=== PATIENT | male | born 1950 | race Two or more races ===

== ENCOUNTER → 2020-06-02 09:54 | Outpatient (BNVA) | payer MEDICARE, MEDICAID, SELFPAY | PROVIDERS: PCP Emergency Medicine; Visit Provider Internal Medicine Cardiovascular Disease | DX: I10 Essential (primary) hypertension (principal); R60.0 Localized edema; Z79.899 Other long term (current) drug therapy | CPT/HCPCS: 93005; 99202 ==

== ENCOUNTER → 2020-07-12 12:51 | Outpatient (REF) | payer MEDICARE, MEDICAID, SELFPAY ==
--- NOTE | 2020-07-12 12:57 | CA_ITS ---
Transthoracic Echocardiogram Patient (Last, First, Middle): Serafin Steele, Gender: Male Date of : 1950 Age: 70 Procedure Date: 07/12/2020 Procedure Type: Transthoracic Echocardiogram Location: OP Height: 167.64 cm Weight: 77.11 kg BSA: 1.87 m2 Heart Rate: bpm BP: 118 / 60 mmHg Belt Brander: Referring MD: Rubio Del Rio MD Symptoms: I10 - Essential (primary) hypertension Study Quality: Good ECG Rhythm: Sinus Conclusions: - The left ventricular systolic function is normal. The visually estimated ejection fraction is between 60-65%. - No obvious valvular pathology seen on this study. - Mild pulmonary hypertension is present. Findings Left Ventricle Normal left ventricular cavity size. There is normal left ventricular wall thickness. The left ventricular systolic function is normal. The visually estimated ejection fraction is between 60-65%. There is no evidence of regional wall motion abnormalities. Diastolic function is normal for age. E/E prime ratio is <8, consistent with normal filling pressures. Right Ventricle Mildly increased right ventricular cavity size. There is normal right ventricular systolic function. Atria Both atria are normal in size. Aortic Valve There is a normal trileaflet aortic valve. There is no aortic valve stenosis. There is no aortic valve regurgitation. Mitral Valve The mitral valve appears normal. There is trace mitral valve regurgitation. There is no mitral valve stenosis. Pulmonic Valve The pulmonic valve was not well visualized. Tricuspid Valve Normal tricuspid valve structure. There is trace tricuspid valve regurgitation. Mild pulmonary hypertension is present. Great Vessels The aortic annulus, sinuses of valsalva, and asc aorta are normal in size. Venous The inferior vena cava is normal in size and collapses greater than 50% with inspiration. Pericardium/Pleural There is no evidence of pericardial effusion. Prior Study Comparison No prior study available for comparison. Recommendations, Care & Conclusions No obvious valvular pathology seen on this study. Measurements 2D Linear Measurements IVSd: 0.99 0.6-0.9/0.6-1.0 cm LVIDd: 3.59 3.9-5.3/4.2-5.9 cm LVIDs: 2.21 2.0-3.6 cm LVPWd: 0.96 0.7-1.1 cm Ao Root: 3.40 2.1-3.5 cm LA Diam: 3.10 2.7-3.8/3.0-4.0 cm LV Mass: 129.10 67-162/88-224 g LVOT Diam: 2.50 3.0+(-)1.3 cm Mitral Valve MV Pk E: 0.67 MV PK A: 1.05 MV Decel Time: 148.00 E/A: 0.60 E'Lateral: 13.70 E'Medial: 11.70 E/E' Med: 5.80 E/E' Lat: 4.90 PHT: 43.00 MVA PHT: 5.12 Decel Saunders: 4.56 Aortic Valve AoV Pk Enio: 1.75 AoV Mn Enio: 1.20 AoV VTI: 0.32 AoV Pk Grad: 12.00 Aov Mn Grad: 7.00 LIZETTE Cont.VTI: 4.59 LVOT LVOT Pk Enio: 1.56 LVOT Mn Enio: 0.92 LVOT VTI: 0.30 LVOT Pk Grad: 10.00 LVOT Mn Grad: 4.00 LVOT Diam: 2.50 LVOT Area: 4.91 Diastolic Function MV Pk E: 0.67 MV Pk A: 1.05 E/A: 0.60 E'Medial: 11.70 E/E' Med: 5.80 E' Laterial: 13.70 E/E' Lat: 4.90 Tricuspid Valve TR Pk Enio: 2.82 TR Pk Grad: 32.00 RA Press: 3.00 RVSP: 43.00 Great Vessels Aorta Ao Root-2D: 3.40 2.0-3.7 cm Ao Asc: 3.30 2.1-3.4 cm Pulmonary Valve PV Pk Enio: 1.31 Peak PV Grad: 7.00 Updated in Other Vendor System with Status of Final James Yusuf MD electronically signed on 07/13/2020 3:52:55 PM with status of Final
== END ==
LOC: HO.CARD 12:51
PROVIDERS: PCP Family Medicine; Visit Provider Internal Medicine Cardiovascular Disease
DX: I10 Essential (primary) hypertension (principal); R60.0 Localized edema
CPT/HCPCS: 93306

== ENCOUNTER 2021-03-30 09:27 | Outpatient (REF) | payer MEDICARE, SELFPAY ==
[2021-03-30 10:45] LABS: Anion Gap 17 (12-20); Blood Urea Nitrogen 21 mg/dL (9-16); Calcium 9.7 mg/dL (8.4-10.2); Carbon Dioxide 29 mmol/L (22-29); Chloride 100 mmol/L (96-108); Estimated Glomerular Filt Rate 54; Potassium 3.5 mmol/L (3.3-5.1); Sodium 142 mmol/L (135-145)
[2021-03-30 10:47] LABS: Appearance Urine CLEAR; Color Urine YELLOW; Glucose Urine UA NEG (NEG); Leukocyte Esterase Urine NEG (NEG); Nitrite Urine NEG (NEG); Specific Gravity - Urine 1.025 (1.005-1.025); Urine Blood NEG (NEG); Urine Ketones NEG (NEG); Urine Protein NEG (NEG-TRACE)
[2021-03-30 11:07] LABS: HBS Num1 4.35 mIU/mL (0-7.99); HBc Num1 0.06 S/CO (0.00-0.79); Hepatitis B Core Antibody Nonreactive (Nonreactive); ~Hepatitis B Surface Antibody NONREACTIVE (Nonreactive); ~Hepatitis C Antibody Reactive (Nonreactive)
[2021-03-30 11:09] LABS: RBC Urine 0 /HPF (0); WBC Urine 0-2 /HPF (0-4)
[2021-03-30 11:10] LABS: Mucus Urine 1+ /LPF; Sperm Urine NOTED
[2021-03-30 11:27] LABS: Creatinine Urine 294.73 mg/dL; Protein/Creatinine Ratio, Ur 0.06 (<0.2); Total Protein Urine Random 18 mg/dL (<12)
[2021-03-31 05:06] LABS: HBsAGNum1 0.66 S/CO (0.00-0.99); Hepatitis B Surface Antigen Negative (Negative)
[2021-04-01 17:36] LABS: Complement C3 80 mg/dL (82-185)
== END 2021-03-30 09:28 | disposition home or self-care (01) ==
LOC: HO.LAB 09:27
PROVIDERS: PCP General Practice; Visit Provider Internal Medicine Nephrology
DX: I12.9 Hypertensive chronic kidney disease with stage 1 through stage 4 chronic kidney disease, or unspecified chronic kidney disease (principal); N18.31 Chronic kidney disease, stage 3a; N17.9 Acute kidney failure, unspecified
CPT/HCPCS: 36415; 80051; 81001; 82310; 82565; 82595; 84156; 84520; 86160; 86704; 86706; 86803; 87340

== ENCOUNTER 2021-09-29 07:57 | Outpatient (REF) | payer OTHER, SELFPAY ==
[2021-09-29 08:42] LABS: Anion Gap 13 (12-20); Blood Urea Nitrogen 15 mg/dL (9-16); Calcium 9.4 mg/dL (8.4-10.2); Carbon Dioxide 31 mmol/L (22-29); Chloride 99 mmol/L (96-108); Estimated Glomerular Filt Rate 49; Potassium 3.2 mmol/L (3.3-5.1); Sodium 140 mmol/L (135-145)
[2021-09-29 10:54] LABS: Appearance Urine CLEAR; Color Urine YELLOW; Glucose Urine UA NEG (NEG); Leukocyte Esterase Urine NEG (NEG); Nitrite Urine NEG (NEG); Specific Gravity - Urine 1.025 (1.005-1.025); Urine Blood TRACE (NEG); Urine Ketones 5 MG/DL (NEG); Urine Protein TRACE MG/DL (NEG-TRACE)
[2021-09-29 11:53] LABS: Mucus Urine 2+ /LPF; RBC Urine 0-2 /HPF (0); WBC Urine 0-2 /HPF (0-4)
[2021-09-29 11:54] LABS: Hyaline Casts Urine 0-2 /LPF
[2021-09-29 12:00] LABS: Protein/Creatinine Ratio, Ur 0.08 (<0.2); Total Protein Urine Random 34 mg/dL (<12)
[2021-10-06 16:47] LABS: Cryoglobulin, Qual NONE DETECTED ((NDT))
== END 2021-09-29 07:58 | disposition home or self-care (01) ==
LOC: HO.LAB 07:57
PROVIDERS: PCP General Practice; Visit Provider Internal Medicine Nephrology
DX: I12.9 Hypertensive chronic kidney disease with stage 1 through stage 4 chronic kidney disease, or unspecified chronic kidney disease (principal); N18.31 Chronic kidney disease, stage 3a
CPT/HCPCS: 36415; 80051; 81001; 82310; 82565; 82595; 84156; 84520

== ENCOUNTER 2022-01-05 09:36 | Outpatient (REF) | payer OTHER, SELFPAY ==
--- NOTE | ~2022-01-05 | XR_ITS ---
EXAMINATION: XR RIBS, RIGHT CLINICAL INFORMATION: Pleurodynia COMPARISON: None TECHNIQUE: 3 views of the right ribs were obtained. FINDINGS: Lungs are clear. No consolidation, pneumothorax, or pleural effusion. The cardiomediastinal silhouette and pulmonary vasculature are normal. Osseous structures are unremarkable. Ribs are intact. No fractures are identified. XR/XR ribs RT min 3V w CXR1V IMPRESSION: Unremarkable examination.
== END 2022-01-05 09:37 | disposition home or self-care (01) ==
LOC: HO.XRAY 09:36
PROVIDERS: Absent Provider General Practice; PCP General Practice; Visit Provider Family Medicine
DX: R07.81 Pleurodynia (principal); R10.11 Right upper quadrant pain
CPT/HCPCS: 71101

== ENCOUNTER 2022-10-09 08:11 | Outpatient (REF) | payer OTHER, SELFPAY ==
[2022-10-09 12:16] LABS: Hematocrit 41.1 % (42.0-52.0); Hemoglobin 12.9 g/dl (14.0-18.0); Mean Corpuscular HGB Conc 31.4 g/dl (31.0-36.0); Mean Corpuscular Hemoglobin 25.1 pg (27.0-33.0); Mean Corpuscular Volume 80.1 fL (80.0-98.0); PLT CLUMP 1; Red Blood Count 5.13 X10*6/uL (4.60-5.80); Red Cell Distribution Width 15.2 % (11.0-16.0)
[2022-10-09 12:17] LABS: White Blood Count 6.9 X10*3/uL (4.8-10.8)
[2022-10-09 12:31] LABS: Platelet Count 94 X10*3/uL (160-400)
[2022-10-09 13:07] LABS: Creatinine Urine 191.05 mg/dL; Microalbum/Creatinine Ratio Ur 6.2 ug/mg cr
[2022-10-09 16:17] LABS: Albumin Level 4.4 g/dL (3.5-5.0); Anion Gap 21 (12-20); Blood Urea Nitrogen 18 mg/dL (9-16); Calcium 9.8 mg/dL (8.4-10.2); Carbon Dioxide 26 mmol/L (22-29); Chloride 99 mmol/L (96-108); Estimated Glomerular Filt Rate > 60; Glucose Fasting 107 mg/dL (60-99); Phosphorus 2.5 mg/dL (2.7-4.5); Potassium 3.8 mmol/L (3.3-5.1); Sodium 142 mmol/L (135-145)
== END 2022-10-09 08:12 | disposition home or self-care (01) ==
LOC: HO.HHCLNP 08:11
PROVIDERS: Visit Provider Internal Medicine Nephrology
DX: I12.9 Hypertensive chronic kidney disease with stage 1 through stage 4 chronic kidney disease, or unspecified chronic kidney disease (principal); N18.31 Chronic kidney disease, stage 3a
CPT/HCPCS: 36415; 80051; 82040; 82043; 82310; 82565; 82947; 84100; 84520; 85027

== ENCOUNTER 2022-12-29 10:25 | Outpatient (REF) | payer OTHER, SELFPAY ==
[2022-12-29 12:27] LABS: TSH reflex Free T4 1.65 uIU/mL (0.32-4.0)
[2022-12-29 12:29] LABS: Prostate Specific Antigen 1.55 ng/mL (<0.05-4.0)
== END 2022-12-29 10:26 | disposition home or self-care (01) ==
LOC: HO.HHCL 10:25
PROVIDERS: Visit Provider General Practice
DX: Z12.5 Encounter for screening for malignant neoplasm of prostate (principal); E03.9 Hypothyroidism, unspecified
CPT/HCPCS: 36415; 84153; 84443

== ENCOUNTER 2023-02-27 07:02 | Outpatient (REF) | payer OTHER, SELFPAY ==
[2023-02-27 08:16] LABS: Anion Gap 16 (12-20); Blood Urea Nitrogen 16 mg/dL (9-16); Calcium 9.5 mg/dL (8.4-10.2); Carbon Dioxide 26 mmol/L (22-29); Chloride 103 mmol/L (96-108); Estimated Glomerular Filt Rate > 60; Potassium 3.4 mmol/L (3.3-5.1); Sodium 142 mmol/L (135-145)
[2023-02-27 08:54] LABS: Total Protein Urine Random 8 mg/dL (<12)
== END 2023-02-27 07:03 | disposition home or self-care (01) ==
LOC: HO.LAB 07:02
PROVIDERS: PCP General Practice; Visit Provider Internal Medicine Nephrology
DX: N18.31 Chronic kidney disease, stage 3a (principal)
CPT/HCPCS: 36415; 80051; 82310; 82565; 84156; 84520

== ENCOUNTER 2023-03-21 09:14 | Outpatient (AMB) | payer OTHER, SELFPAY ==
--- NOTE | 2023-03-21 09:16 | A.OFFVIS_ITS ---
Intake Vital Signs 03/21/23 09:23 Height 5 ft 7.5 in Weight 188 lb BMI 29.0 BP 147/69 H Blood Pressure Location Lt brachial Position Sitting Pulse 94 Intake Visit Reasons: recall colonoscopy screening Intake Note: This patient presents for an assessment for recall colonoscopy screening. Patient c/o; reports no rectal bleeding, reports constipation. last colonoscopy 2018 [facility] Sales Consultant Required: Yes Hospice Care Sales Consultant Language: Web Services Professional Name: Darby Information Interpreted: non-clinical & clinical Accompanied by: Girlfriend Allergies No Known Allergies [No Known Allergies*] Allergy (Unverified 03/21/23 09:24) Medication List - Last Reconciled 03/21/23 by Ariel Banda MD atorvastatin 40 mg PO BEDTIME buprenorphine-naloxone 8-2 mg (Suboxone) 2 film sublingual DAILY hydrochlorothiazide 12.5 mg PO DAILY hydrocortisone 1% 1 appl topical BID PRN ibuprofen 400 mg PO Q8H levothyroxine 75 mcg PO DAILY methadone 5 mg PO DAILY dshglppvfnpg-agyf-miiwi acid 18-400 mg-mcg (Centrum Complete) 1 tab PO DAILY sodium,potassium,mag sulfates 17.5-3.13-1.6 gram (Suprep Bowel Prep Kit) DILUTE; drink full amount early evening before AND next morning at least 2 hr before procedure; follow w 960 mL water PO HPI recall colonoscopy screening HPI Details 72-year-old male here for a colonoscopy. He had been undergoing colonoscopies with Dr. Clarke because of a history of tubular adenomas. His last colonoscopy was in 2019. At that time, this was unremarkable. In view of his history, Dr. Clarke had recommended another colonoscopy in 5 years. He currently denies any significant GI complaints. [facility] Medical History (Updated 03/21/23 @ 09:47 by Ariel Banda MD) Anxiety Hepatitis C Thyroid disease History of colon polyps HTN (hypertension) Review of Systems Const Denies chills and Denies fever(s) Card Denies chest pain, Denies dyspnea and Denies dyspnea on exertion Resp Denies cough, Denies dyspnea and Denies dyspnea on exertion GI Denies hematochezia and Denies change in bowel habits Denies hematuria and Denies difficulty urinating Musc Denies back pain and Denies limited range of motion Neuro Denies focal weakness and Denies convulsions Psych Denies depression and Denies mood swings Physical Exam Vital Signs: Last Vital Signs Pulse 94 03/21/23 09:23 BP 147/69 H 03/21/23 09:23 BMI result Body Mass Index 29.0 Const General: comfortable and no acute distress Orientation/consciousness: patient oriented x3 Neck Neck: Yes no lymphadenopathy Resp Auscultation: clear to auscultation bilaterally Cardio Rhythm: regular rhythm GI Palpation (GI): Soft to palpation, nontender and no guarding Neuro General: patient oriented x3 Assessment & Plan Assessment & Plan (1) History of colon polyps: Code(s): Z86.010 - Personal history of colonic polyps Plan: He had been recommended to undergo a repeat colonoscopy this year for his history tubular adenomas. I reviewed with him the technique of colonoscopy. I discussed the risks including but not limited to bleeding and perforation, as well as the benefits and alternatives. He understands and wants to proceed. I have prescribed his bowel prep as well. Medications: New sodium,potassium,mag sulfates 17.5-3.13-1.6 gram (Suprep Bowel Prep Kit) DILUTE; drink full amount early evening before AND next morning at least 2 hr before procedure; follow w 960 mL water PO 354 mL 0RF Coding Level of Care Code New Pt Level 3 (21354) Diagnoses History of colon polyps Z86.010
[2023-03-21 09:23] VITALS: BP 147/69; PULSE 94; BMI 29.0
== END 2023-03-21 10:42 | disposition home or self-care (01) ==
PROVIDERS: PCP General Practice; Visit Provider Surgery
DX: Z86.010 Personal history of colon polyps (principal)
CPT/HCPCS: 99203

== ENCOUNTER → 2023-03-21 09:14 | Outpatient (BNVA) | payer OTHER, SELFPAY | PROVIDERS: PCP General Practice; Visit Provider Surgery | DX: Z86.010 Personal history of colon polyps (principal) | CPT/HCPCS: 99202 ==

== ENCOUNTER 2023-04-18 10:43 | Outpatient (AMB) | payer OTHER, SELFPAY ==
[2023-04-18 11:02] VITALS: BP 120/70; PULSE 78; O2SAT 97; BMI 28.6
--- NOTE | 2023-04-18 11:02 | HO.NEPHOV_ITS ---
HPI HPI Comments History of Present Illness Details I had the privilege of seeing Serafin in follow-up of his mild CKD and hypertension. Has history of hepatitis-C antibody positive. Has not had used any drugs for a long time now. He does not have any chest pain, shortness of breath, paroxysmal nocturnal dyspnea, orthopnea, pedal edema, nausea, vomiting, diarrhea, urinary symptoms or orthostasis. He is compliant with his medications. He does not take any nonsteroidal anti-inflammatories. His renal functions have been stable. He feels well. [facility] Medical History (Updated 04/18/23 @ 11:21 by Emil Rivera MD) Hypothyroidism Anemia Insomnia Anxiety Hepatitis C Thyroid disease History of colon polyps HTN (hypertension) Surgical History (Updated 04/17/23 @ 16:35 by Adelina Orantes) H/O umbilical hernia repair H/O colonoscopy Social History (Reviewed 03/21/23 @ 09:25 by Hiral Faulkner [facility]) Patient Tobacco Use Status: Never used Tobacco Vital Signs 04/18/23 11:02 Height 5 ft 7.5 in Weight 185 lb 4 oz BMI 28.6 BP 120/70 Blood Pressure Location Lt brachial Position Sitting Pulse 78 Pulse Source Pulse Oximeter Pulse Oximetry (%) 97 Oxygen Delivery Method Room Air Physical Exam Vital Signs: Last Vital Signs Pulse 78 04/18/23 11:02 BP 120/70 04/18/23 11:02 Pulse Ox 97 04/18/23 11:02 Oxygen Delivery Method Room Air 04/18/23 11:02 BMI result Body Mass Index 28.6 Const General: comfortable and no acute distress Orientation/consciousness: patient oriented x3 HEENT Head: Yes normocephalic Mouth: Normal oral and palatal mucosa present Eyes EOM: EOMs intact bilaterally Neck Neck: Yes supple Resp Auscultation: clear to auscultation bilaterally Cardio Jugular venous distension: no JVD Rate: regular rate GI Palpation (GI): Soft to palpation Auscultation: normal bowel sounds General: Yes no CVA tenderness Back/Spine/Pelvis Back: no CVA tenderness Skin General skin exam: no rashes or lesions noted Neuro General: patient oriented x3 and moves all extremities Extrem General: Yes no pedal edema Assessment & Plan Assessment & Plan (1) HTN (hypertension): Code(s): I10 - Essential (primary) hypertension Qualifiers: Hypertension type: primary hypertension Qualified Code(s): I10 - Essential (primary) hypertension (2) CKD (chronic kidney disease) stage 3, GFR 30-59 ml/min: Code(s): N18.30 - Chronic kidney disease, stage 3 unspecified Qualifiers: Chronic kidney disease stage 3 subtype: stage 3a (GFR 45-59) Qualified Code(s): N18.31 - Chronic kidney disease, stage 3a Vicente Betancourt has history of CKD stage 3 and longstanding hypertension. His renal functions are quite stable. His blood pressure is at goal. His volume status is optimal. His cryoglobulin was negative in the past. He avoids nonsteroidal anti-inflammatories and maintain good hydration. I did not make any medication changes today. Follow-up blood work ordered. Answered all questions. Follow- up appointment given. Orders: Orders 2 Blood Urea Nitrogen Today I10 - Essential (primary) hypertension, N18.30 - Chronic kidney disease, stage 3 unspecified Electrolytes Today I10 - Essential (primary) hypertension, N18.30 - Chronic kidney disease, stage 3 unspecified Protein Creatinine Ratio, Ur Today I10 - Essential (primary) hypertension, N18.30 - Chronic kidney disease, stage 3 unspecified Creatinine Today I10 - Essential (primary) hypertension, N18.30 - Chronic kidney disease, stage 3 unspecified Calcium Today I10 - Essential (primary) hypertension, N18.30 - Chronic kidney disease, stage 3 unspecified UA and rflx microscopic Today I10 - Essential (primary) hypertension, N18.30 - Chronic kidney disease, stage 3 unspecified Coding Level of Care Code Est Pt Level 3 (16080) Diagnoses Primary hypertension I10 Hypertension type: primary hypertension Stage 3a chronic kidney disease N18.31 Chronic kidney disease stage 3 subtype: stage 3a (GFR 45-59) Results Reviewed Nephrology Results: Hgb 12.9 g/dl (14.0-18.0) L 10/09/22 WBC 6.9 X10*3/uL (4.8-10.8) 10/09/22 Plt Count 94 X10*3/uL (160-400) L 10/09/22 Sodium 142 mmol/L (135-145) 02/27/23 Potassium 3.4 mmol/L (3.3-5.1) 02/27/23 Chloride 103 mmol/L (96-108) 02/27/23 Carbon Dioxide 26 mmol/L (22-29) 02/27/23 BUN 16 mg/dL (9-16) 02/27/23 Creatinine 1.11 mg/dL (0.5-1.4) 02/27/23 Calcium 9.5 mg/dL (8.4-10.2) 02/27/23 Phosphorus 2.5 mg/dL (2.7-4.5) L 10/09/22 Urine Protein TRACE MG/DL (NEG-TRACE) 09/29/21 Urine Creatinine 191.05 mg/dL 10/09/22 Protein/Creatinin Ratio 0.08 (<0.2) 09/29/21
== END 2023-04-18 11:18 | disposition home or self-care (01) ==
PROVIDERS: PCP General Practice; Visit Provider Internal Medicine Nephrology
DX: I10 Essential (primary) hypertension (principal); N18.31 Chronic kidney disease, stage 3a
CPT/HCPCS: 99213

== ENCOUNTER → 2023-04-18 10:43 | Outpatient (BNVA) | payer OTHER, SELFPAY | PROVIDERS: PCP General Practice; Visit Provider Internal Medicine Nephrology | DX: I12.9 Hypertensive chronic kidney disease with stage 1 through stage 4 chronic kidney disease, or unspecified chronic kidney disease (principal); N18.31 Chronic kidney disease, stage 3a | CPT/HCPCS: 99212 ==

== ENCOUNTER 2023-04-20 08:20 | Day surgery (SDC) | payer OTHER, SELFPAY ==
[2023-04-17 16:41] VITALS: BMI 29.0
--- NOTE | 2023-04-19 09:59 | HO.ANESPROP2 ---
Documented by User: Irasema Carreno NP 04/19/23 10:01 HPI - Anesthesia Eval Consult details Narrative: 73yo M for Colonoscopy with Polypectomy Methadone vs suboxone? PMFSH Active Problems Active Problems: All Active Problems (Updated 04/18/23 @ 11:21 by Emil Rivera MD) CKD (chronic kidney disease) stage 3, GFR 30-59 ml/min (Acute) Bilateral leg edema (Acute) Anxiety (Acute) Hepatitis C (Acute) Thyroid disease (Acute) History of colon polyps (Acute) HTN (hypertension) (Acute) Past Medical History Medical History CKD (chronic kidney disease) stage 3, GFR 30-59 ml/min Hypothyroidism Anemia Insomnia Anxiety Hepatitis C Thyroid disease History of colon polyps HTN (hypertension) Surgical History Surgical History H/O umbilical hernia repair H/O colonoscopy Social History Social History Patient Tobacco Use Status: Never used Tobacco Use of substances other than those prescribed or required for medical reasons: Yes Are you DNR?: No Advance Directives: No Advance Directives Information Provided: Yes Meds Allergies Allergy/AdvReac Type Severity Reaction Status Date / Time No Known Allergies Allergy Verified 04/20/23 08:47 [No Known Allergies*] Home Medications Medication Instructions Recorded Confirmed Last Taken Type atorvastatin 40 mg tablet 40 mg PO BEDTIME 06/02/20 03/21/23 Unknown History buprenorphine 8 mg-naloxone 2 mg 2 film sublingual DAILY 06/02/20 03/21/23 Unknown History sublingual film (Suboxone) hydrochlorothiazide 12.5 mg capsule 12.5 mg PO DAILY 06/02/20 03/21/23 Unknown History hydrocortisone 1 % topical cream 1 appl topical BID PRN 06/02/20 03/21/23 Unknown History levothyroxine 75 mcg tablet 75 mcg PO DAILY 06/02/20 03/21/23 Unknown History methadone 5 mg tablet 5 mg PO DAILY 03/21/23 03/21/23 Unknown History metoprolol succinate 25 mg 25 mg PO DAILY 04/18/23 Unknown History tablet,extended release 24 hr Exam Height,Weight and Vital Signs: Height 5 ft 7.5 in Weight 85.275 kg Assessment and Plan Assessment Anesthesia Assessment: Chart Reviewed Documented by User: Marie Arenas MD 04/20/23 09:38 PMF Past Medical History Medical History CKD (chronic kidney disease) stage 3, GFR 30-59 ml/min Hypothyroidism Anemia Insomnia Anxiety Hepatitis C Thyroid disease History of colon polyps HTN (hypertension) Family History Family history of problems with anesthesia: No Surgical History Surgical History H/O umbilical hernia repair H/O colonoscopy History of Problems with Anesthesia: No Social History Social History Patient Tobacco Use Status: Never used Tobacco Use of substances other than those prescribed or required for medical reasons: Yes Are you DNR?: No Advance Directives: No Advance Directives Information Provided: Yes Meds Allergies Allergy/AdvReac Type Severity Reaction Status Date / Time No Known Allergies Allergy Verified 04/20/23 08:47 [No Known Allergies*] Home Medications Medication Instructions Recorded Confirmed Last Taken Type atorvastatin 40 mg tablet 40 mg PO BEDTIME 06/02/20 03/21/23 Unknown History buprenorphine 8 mg-naloxone 2 mg 2 film sublingual DAILY 06/02/20 03/21/23 Unknown History sublingual film (Suboxone) hydrochlorothiazide 12.5 mg capsule 12.5 mg PO DAILY 06/02/20 03/21/23 Unknown History hydrocortisone 1 % topical cream 1 appl topical BID PRN 06/02/20 03/21/23 Unknown History levothyroxine 75 mcg tablet 75 mcg PO DAILY 06/02/20 03/21/23 Unknown History methadone 5 mg tablet 5 mg PO DAILY 03/21/23 03/21/23 Unknown History metoprolol succinate 25 mg 25 mg PO DAILY 04/18/23 Unknown History tablet,extended release 24 hr Exam Airway Mallampati Class: II TM Dist: >3cm Neck ROM: Full Loose/Missing/Broken Teeth: Yes, Upper and Lower Assessment and Plan Assessment Anesthesia Assessment: Anesthesia Plan Discussed Final Anesthetic Review Family History of Problems with Anesthesia: No History of Problems with Anesthesia: No NPO: Yes ASA Class: III Final Preanesthetic Review: No Changes in Pt Med Stat, Meds/Allgs Chart Reviewed, Consent Obtained/Reviewed and Anes Risks/Benef Reviewed Patient Risk: Intermediate Procedure Risk: Low Anesthetic Plan Disposition: Standard PACU
[2023-04-20] MEDS: Lactated Ringers 1,000 ML 100 ML IVCONT (08:54)
[2023-04-20 08:55] VITALS: BP 141/69; PULSE 93; RESP 18; TEMP 36.6; O2SAT 98; BMI 28.1
--- NOTE | 2023-04-20 09:50 | MHC.SHP ---
Pre-Procedural Eval Section A - 24 Hr Update-Section A only Date of Service: 04/20/23 The patient is an INPATIENT: No Changes since office visit: Yes Cold of Flu in the past 2 weeks, Yes New Medical Problems, Yes Changes in Medication and Yes Patient answered all questions The patient has been examined within 24 hours of the surgical procedure. The History & Physical has been completed within 30 days and I have reviewed it.: Yes Section B - Complete if H&P > 30 days Chief Complaint: Personal history of colonic polyps Allergies: Allergies Allergy/AdvReac Type Severity Reaction Status Date / Time No Known Allergies Allergy Verified 04/20/23 08:47 [No Known Allergies*] Plan I have reviewed the history and physical and performed a pertinent physical examination on my patient. No changes have occurred unless specified. Time Spent With Patient Time: Total time managing care of this patient today ____ minutes.
--- NOTE | 2023-04-20 10:38 | W.PM.OPN ---
Operative Note Operative Note Date of Service: 04/20/23 Narrative: Preop diagnosis: History of colon polyps Postop diagnosis: Normal colonoscopy findings Procedure: Colonoscopy Surgeon: Ariel Banda MD The patient is a 73-year-old male been undergoing colonoscopy for [address] Clarke here for a follow-up colonoscopy. He understood the technique of the planned procedure as well as the risks, benefits, and alternatives. The patient was brought to the operating room and placed in left lateral decubitus position under monitored anesthesia care. A surgical time-out was done. A full digital rectal exam was done and this did not reveal any significant anal lesions. The tip of the Olympus colonoscope was gently introduced through the anal orifice advanced with insufflation. We encountered significant looping and we could not advance the scope past the hepatic flexure with different maneuvers. I eventually placed the patient in supine position. I applied pressure on the abdominal wall to splint this and after some time, we are able to advance the scope all the way to the cecum. The cecum was intubated. The cecum was identified by visualization of the ileocecal valve as well as the appendiceal orifice. The cecal mucosa was unremarkable. The scope was gradually withdrawn with careful examination of the entire colonic mucosa being done with scope withdrawal. The patient had adequate bowel prep so it was unlikely that any lesion may have been missed. The rectum was reached and there were no lesions seen. The anal canal was unremarkable. The scope was then withdrawn completely with desufflation The patient tolerated the procedure well. There were no immediate complications. He may continue to have an colonoscopy every 5 years.
[2023-04-20 10:42] VITALS: BP 110/57; PULSE 81; RESP 20; TEMP 36.1; O2SAT 96
[2023-04-20 10:57] VITALS: BP 111/62; PULSE 86; RESP 16; TEMP 36.4; O2SAT 97
== END 2023-04-20 11:15 | disposition home or self-care (01) ==
PROVIDERS: PCP General Practice; Visit Provider Surgery
PROC: 0DBE8ZZ Excision of Large Intestine, Via Natural or Artificial Opening Endoscopic (ICD-10-PCS; CPT G0105; principal; 2023-04-20 10:00)
DX: Z12.11 Encounter for screening for malignant neoplasm of colon (principal); K56.2 Volvulus; Z86.010 Personal history of colon polyps; D64.9 Anemia, unspecified; I12.9 Hypertensive chronic kidney disease with stage 1 through stage 4 chronic kidney disease, or unspecified chronic kidney disease; N18.9 Chronic kidney disease, unspecified; B19.20 Unspecified viral hepatitis C without hepatic coma; Z79.02 Long term (current) use of antithrombotics/antiplatelets; Z79.899 Other long term (current) drug therapy
CPT/HCPCS: G0105; J2704

== ENCOUNTER → 2023-04-20 08:20 | Outpatient (BNV) | payer OTHER, SELFPAY | PROVIDERS: PCP General Practice; Visit Provider Surgery | DX: Z12.11 Encounter for screening for malignant neoplasm of colon (principal); Z86.010 Personal history of colon polyps | CPT/HCPCS: G0105 ==

== ENCOUNTER 2023-05-03 09:47 | Outpatient (AMB) | payer OTHER, SELFPAY ==
--- NOTE | 2023-05-03 09:50 | MHC.OFFVIS ---
Intake Intake Visit Reasons: S/P colonoscopy Intake Note: This patient presents for a follow-up assessment status post colonoscopy. Patient c/o; reports no complaints at this time. Inventory Control Specialist Required: No Accompanied by: Daughter Allergies No Known Allergies [No Known Allergies*] Allergy (Verified 05/03/23 09:55) Medication List - Last Reconciled 05/03/23 by Ariel Banda MD atorvastatin 40 mg PO BEDTIME buprenorphine-naloxone 8-2 mg (Suboxone) 2 film sublingual DAILY hydrochlorothiazide 12.5 mg PO DAILY hydrocortisone 1% 1 appl topical BID PRN levothyroxine 75 mcg PO DAILY methadone 5 mg PO DAILY metoprolol succinate ER 25 mg PO DAILY HPI S/P colonoscopy HPI Details He underwent colonoscopy for history of polyps last 04/20/2023. He tolerated procedure well. He says he feels well he did not have any problems post procedure. [facility] Medical History CKD (chronic kidney disease) stage 3, GFR 30-59 ml/min Hypothyroidism Anemia Insomnia Anxiety Hepatitis C Thyroid disease History of colon polyps HTN (hypertension) Surgical History H/O umbilical hernia repair H/O colonoscopy Social History Patient Tobacco Use Status: Never used Tobacco Review of Systems Const Denies chills and Denies fever(s) Card Denies chest pain, Denies dyspnea and Denies dyspnea on exertion Resp Denies cough, Denies dyspnea and Denies dyspnea on exertion GI Denies hematochezia and Denies change in bowel habits Denies hematuria and Denies difficulty urinating Musc Denies back pain and Denies limited range of motion Neuro Denies focal weakness and Denies convulsions Psych Denies depression and Denies mood swings Physical Exam Const General: comfortable and no acute distress Resp Effort & Inspection: normal respiratory effort GI Palpation (GI): Soft to palpation, not firm, nontender and no guarding Assessment & Plan Assessment & Plan (1) History of colon polyps: Code(s): Z86.010 - Personal history of colonic polyps Plan: Status post colonoscopy last April 20. He tolerated procedure well. I did not find any polyps or lesions. I told him that in view of his history of colon polyps, I would recommend a follow-up colonoscopy in 5 years if he is still in good health at that time. He says he understands. Coding Level of Care Code Est Pt Level 2 (53699) Diagnoses History of colon polyps Z86.010
== END 2023-05-03 10:05 | disposition home or self-care (01) ==
PROVIDERS: PCP General Practice; Visit Provider Surgery
DX: Z86.010 Personal history of colon polyps (principal)
CPT/HCPCS: 99212

== ENCOUNTER → 2023-05-03 09:47 | Outpatient (BNVA) | payer OTHER, SELFPAY | PROVIDERS: PCP General Practice; Visit Provider Surgery | DX: Z86.010 Personal history of colon polyps (principal) | CPT/HCPCS: 99212 ==

== ENCOUNTER 2023-08-07 06:20 | Outpatient (REF) | payer OTHER, SELFPAY ==
[2023-08-07 08:04] LABS: Appearance Urine Clear; Color Urine Yellow; Glucose Urine UA Negative (Negative); Leukocyte Esterase Urine Negative (Negative); Nitrite Urine Negative (Negative); Specific Gravity - Urine >= 1.030 (1.005-1.025); Urine Blood Negative (Negative); Urine Ketones Negative (Negative); Urine Protein Negative (Neg-Trace)
[2023-08-07 08:32] LABS: Protein/Creatinine Ratio, Ur 0.09 (<0.2); Total Protein Urine Random 30 mg/dL (<12)
[2023-08-07 08:39] LABS: Anion Gap 16 (12-20); Blood Urea Nitrogen 12 mg/dL (9-16); Calcium 9.5 mg/dL (8.4-10.2); Carbon Dioxide 26 mmol/L (22-29); Chloride 104 mmol/L (96-108); Estimated Glomerular Filt Rate > 60; Potassium 3.8 mmol/L (3.3-5.1); Sodium 142 mmol/L (135-145)
== END 2023-08-07 06:21 | disposition home or self-care (01) ==
LOC: HO.LAB 06:20
PROVIDERS: PCP General Practice; Visit Provider Internal Medicine Nephrology
DX: I12.9 Hypertensive chronic kidney disease with stage 1 through stage 4 chronic kidney disease, or unspecified chronic kidney disease (principal); N18.30 Chronic kidney disease, stage 3 unspecified
CPT/HCPCS: 36415; 80051; 81003; 82310; 82565; 82570; 84156; 84520

== ENCOUNTER 2023-08-14 09:26 | Inpatient (IN) | payer OTHER, SELFPAY ==
[2023-08-14] VITALS (7 sets, daily range): BP systolic 100–140; BP diastolic 60–92; PULSE 85–140; RESP 13–16; TEMP 36.2–37.1; O2SAT 88–97; BMI 25.1; BMI 26.3
--- NOTE | ~2023-08-14 | NM_ITS ---
Myocardial perfusion study Indication: NSTEMI Evaluate for myocardial ischemia Technique: The patient was brought in for a Lexiscan perfusion study on 08/16/2023. Patient performed low-level exercise and was injected 0.4 mg of Lexiscan intravenously. Within a minute of injection, 30 mCi of sestamibi was given intravenously. Images were obtained using the SPECT gamma camera interlaced with the gating device. Images were obtained in supine position. Resting perfusion study was performed on 08/15/2023. Patient was administered 30 mCi of sestamibi intravenously at rest. Images were then obtained in supine position. Images obtained with and without CT attenuation. Total DLP 84 mGy-cm. Images were processed with the software and compared side to side in short axis, horizontal long axis and vertical long axis views. Findings: The stress perfusion study showed non attenuated images show mildly to moderately reduced uptake in the basal wall of the LV myocardium. Remainder of the LV myocardium is normally perfused. Attenuation corrected images show overall normal uptake of radiotracer in all segments of LV myocardium.. The gated study shows normal LV systolic function with calculated LVEF of 67%. LV cavity is normal in size. The gated study shows normal systolic wall thickening and contraction of segments. Resting study shows no change in perfusion pattern compared to stress perfusion study. Gating at rest reveals normal systolic wall motion with ejection fraction at 62%. The findings are consistent with normal myocardial perfusion. NM/NM cardiolite stress test Impression: 1. Myocardial perfusion imaging study shows normal myocardial perfusion 2. Gated LVEF is 67% 3. Transient ischemic dilatation not present EKG is nondiagnostic for ischemia
--- NOTE | ~2023-08-14 | CT_ITS ---
EXAMINATION: CT HEAD WITHOUT CONTRAST CLINICAL INFORMATION: Change in mental status. COMPARISON: None available. TECHNIQUE: Contiguous axial imaging was performed from the skull base to vertex without intravenous administration of contrast. This CT examination was performed using dose optimization techniques as appropriate, variously including the following: *Automated exposure control *Adjustment of mA and/or kV according to patient size (this includes techniques or standardized protocols for targeted exams where dose is matched to indication/reason for exam; i.e. extremities or head) *Use of iterative reconstruction technique DLP: 665 mGy-cm FINDINGS: There is no evidence of acute intracranial hemorrhage or territorial infarction. No abnormal mass-effect or midline shift is seen. Clarke to white matter differentiation is well preserved. No extra-axial fluid collections are identified. The ventricles are normal in size. There is no abnormal attenuation within the brain parenchyma. The osseous structures and soft tissues are normal. Minimal mucosal thickening is seen in some of the ethmoid air cells. The mastoid air cells and visualized portions of the paranasal sinuses are well-aerated. CT/CT head/brain wo IV con IMPRESSION: * No acute intracranial pathology. * Mild mucosal thickening in some of the ethmoid air cells.
--- NOTE | ~2023-08-14 | XR_ITS ---
EXAMINATION: XR CHEST CLINICAL INFORMATION: Possible aspiration. COMPARISON: Chest and right ribs of 01/05/2022. TECHNIQUE: Frontal view of the chest was obtained. FINDINGS: Lung volumes are low. There is no gross pneumothorax. Dextroscoliosis of the thoracolumbar spine with multilevel degenerative changes. Heart size within normal limits. Streaky bibasilar opacities may represent atelectasis, but an infectious/inflammatory process should also be considered. Possible trace left pleural effusion. XR/XR chest 1V IMPRESSION: Streaky bibasilar opacities may represent atelectasis, but an infectious/inflammatory process should also be considered. Possible trace left pleural effusion. This study was presented today, August 14, 2023, for interpretation. Stat results provided at this time as requested by referring provider.
--- NOTE | 2023-08-14 09:39 | ECG_ITS ---
Test Reason : tacky Blood Pressure : / mmHG Vent. Rate : 127 BPM Atrial Rate : 000 BPM P-R Int : 000 ms QRS Dur : 084 ms QT Int : 328 ms P-R-T Axes : 000 006 042 degrees QTc Int : 476 ms Atrial fibrillation with rapid ventricular response Nonspecific ST and T wave abnormality Abnormal ECG When compared with ECG of 18-NOV-2008 13:37, Atrial fibrillation has replaced Sinus rhythm Vent. rate has increased BY [address] now depressed in Anterior leads Referred By: Aubree Jamison Electronically Signed By:FABIANA BURNHAM MD
[2023-08-14] MEDS: ondansetron HCL 4 MG/2 ML VIAL IVPUSH (09:54)
[2023-08-14] MEDS: dilTIAZem HCL 50 MG/10 ML VIAL IVPUSH (09:54)
[2023-08-14 09:55] LABS: MANUAL DIFF FLAG NO
[2023-08-14 09:58] LABS: Basophils Percent Auto 0.3 % (0-2); Eosinophils Absolute Auto 0.3 X10*3/uL (0.0-0.4); Eosinophils Percent Auto 2.6 % (0-4); Hematocrit 40.6 % (42.0-52.0); Imm Gran Abs Auto 0.05 X10*3/uL (0.00-0.03); Imm Gran Pct Auto 0.4 % (0.0-0.4); Lymphocytes Absolute Auto 1.9 X10*3/uL (1.2-4.9); Lymphocytes Percent Auto 16.3 % (20-40); Mean Corpuscular Hemoglobin 26.2 pg (27.0-33.0); Mean Corpuscular Volume 81.9 fL (80.0-98.0); Mean Platelet Volume 10.9 fL (9.4-12.4); Monocytes Absolute Auto 0.7 X10*3/uL (0.1-1.2); Monocytes Percent Auto 6.2 % (2-11); Neutrophils Absolute Auto 8.6 x10*3/uL (2.0-8.3); Neutrophils Percent Auto 74.2 % (45-73); Platelet Count 174 X10*3/uL (160-400); Red Blood Count 4.96 X10*6/uL (4.60-5.80); Red Cell Distribution Width 16.8 % (11.0-16.0); White Blood Count 11.5 X10*3/uL (4.8-10.8)
[2023-08-14 10:03] LABS: Prothrombin Time 11.6 SEC (11.1-13.3)
--- NOTE | 2023-08-14 10:13 | ED.GENADULT ---
HPI - General Adult General Chief complaint: General Medical Stated complaint: SUDDEN AMS,LKWT 1HR AGO,90% RA,94% 2LPM PER EMS Time Seen by Provider: 08/14/23 09:28 Source: patient, EMS, old records reviewed and medicare sales executive Mode of arrival: EMS Limitations: no limitations History of Present Illness ED Provider: DAKOTA HPI narrative: 73 yo male with PMH of CKD, hep C, HTN, anxiety, who states he was walking this morning and admits to sniffing a drug now feels weird and nauseated. His did not know this but found him at home unreponsive - EMS found him with pinpoint pupils, low 02, altered, diaphoretic - initially 88% on RA and given 1mg narcan with improvement. He is now 97% on RA. He admits he has not done drugs in a few years. He does not think he fell or hit his head. with medicare sales executive he is alert and oriented x 3 and denies pain. MD complaint: altered Onset (ago): hour(s) (1) Radiation: non-radiation Severity: moderate Relieving factors: none Exacerbating factors: other (admits to sniffing a drug) Associated symptoms: nausea/vomiting Treatments prior to arrival: other (1mg narcan which EMS notes improved his symptoms) Related Data Home Medications ?Medication ?Instructions ?Recorded ?Confirmed atorvastatin 40 mg tablet 40 mg PO BEDTIME 06/02/20 05/03/23 buprenorphine 8 mg-naloxone 2 mg 2 film sublingual DAILY 06/02/20 05/03/23 sublingual film (Suboxone) hydrochlorothiazide 12.5 mg capsule 12.5 mg PO DAILY 06/02/20 05/03/23 hydrocortisone 1 % topical cream 1 appl topical BID PRN Itching 06/02/20 05/03/23 levothyroxine 75 mcg tablet 75 mcg PO DAILY 06/02/20 05/03/23 methadone 5 mg tablet 5 mg PO DAILY 03/21/23 05/03/23 metoprolol succinate 25 mg 25 mg PO DAILY 04/18/23 05/03/23 tablet,extended release 24 hr Allergies Allergy/AdvReac Type Severity Reaction Status Date / Time No Known Allergies Allergy Verified 08/14/23 09:42 [No Known Allergies*] Review of Systems Review of Systems: Constitutional : No Fever, No Chills, No Fatigue ENT/Mouth : No sore throat, No Rhinorrhea Eyes: No Eye Pain, No Swelling, No Redness Cardiovascular : No Chest Pain, No SOB, No Dyspnea on Exertion Respiratory : No Cough, No Sputum Gastrointestinal : No Nausea, No Vomiting, No Diarrhea, No abdominal Pain Genitourinary : No Dysuria, No Urinary Frequency, No Hematuria, Musculoskeletal : No joint pain, No Myalgias, No Joint Swelling Skin : No Skin Lesions, No rash Neuro : No Weakness, No Numbness, No Dizziness, no Headache Psych; no SI/HI. All other systems reviewed and are negative [facility] Past Medical History Attestation statement: The following information was validated with the patient. Source: old records reviewed Medical History CKD (chronic kidney disease) stage 3, GFR 30-59 ml/min Hypothyroidism Anemia Insomnia Anxiety Hepatitis C Thyroid disease History of colon polyps HTN (hypertension) Surgical History H/O umbilical hernia repair H/O colonoscopy Social History Social History Patient Tobacco Use Status: Never used Tobacco Advance Directives: No Advance Directives Information Provided: Yes Do you have a plan to hurt others: No Plan Physical Exam ED Vital Signs: Vital Signs - 24 hr 08/14/23 09:38 08/14/23 09:54 08/14/23 10:36 Temperature 97.1 F Pulse Rate 135 H 135 H 122 H Respiratory Rate 14 14 Blood Pressure 126/82 126/82 128/73 Pulse Oximetry 97 95 Oxygen Delivery Method Room Air Room Air 08/14/23 13:10 Temperature 98.5 F Pulse Rate 109 H Respiratory Rate 13 Blood Pressure 117/64 Pulse Oximetry 92 Oxygen Delivery Method Room Air BMI result Body Mass Index 26.3 Appearance: Alert. Oriented X3. No acute distress. Eyes: Pupils equal, round and reactive to light. 2mm ENT: Pharynx normal. atraumatic Neck: Normal inspection. Neck supple. CVS: irregular and tachycardic heart rate and rhythm. Pulses normal. Respiratory: No respiratory distress. Breath sounds normal. Abdomen: Soft and nontender. Skin: Skin warm and dry. Normal skin color. Normal skin turgor. Extremities: No lower extremity edema. atraumatic Neuro: Oriented X 3. No motor deficit. No sensory deficit. NIH Stroke Scale Internal: Initial- Upon Arrival Level of Consciousness: Alert Level of Consciousness Questions: Answers both questions correctly Level of Consciousness Commands: Performs both tasks correctly Best Gaze: Normal Visual: No visual loss Facial Palsy: Normal Motor Arm (Right): No drift Motor Arm (Left): No drift Motor Leg (Right): No drift Motor Leg (Left): No drift Limb Ataxia: Absent Sensory: Normal Best Language: No aphasia Dysarthia: Normal Extinction and Inattention: No abnormality Score: 0 Medications Administered Generic Name Dose Route Start Last Admin Trade Name Freq PRN Reason Stop Dose Admin Diltiazem HCl 125 mg/ Sodium 125 mls @ 0 mls/hr 08/14/23 11:15 08/14/23 11:40 Chloride IVCONT 10 mg/hr .Q0M BAN 10 mls/hr Administration Protocol Per Protocol Discontinued Medications Generic Name Dose Route Start Last Admin Trade Name Freq PRN Reason Stop Dose Admin Diltiazem HCl 5 mg 08/14/23 09:48 08/14/23 09:54 Diltiazem Hcl 50 Mg/10 Ml Vial IVPUSH 08/14/23 09:49 5 mg STAT STA Administration Diltiazem HCl 10 mg 08/14/23 10:26 08/14/23 10:38 Diltiazem Hcl 50 Mg/10 Ml Vial IVPUSH 08/14/23 10:27 10 mg STAT STA Administration Diphenhydramine HCl 25 mg 08/14/23 11:33 08/14/23 11:39 Diphenhydramine Hcl 50 Mg/Ml Vial IVPUSH 08/14/23 11:34 25 mg ONCE ONE Administration Ondansetron HCl 4 mg 08/14/23 09:48 08/14/23 09:54 Ondansetron Hcl 4 Mg/2 Ml Vial IVPUSH 08/14/23 09:49 4 mg ONCE ONE Administration Medical Decision Making Medical Decision Making MDM Narrative: 73 yo male with PMH of CKD, hep C, HTN, anxiety here with c/o being confused decreased responsiveness and found in rapid afib after he admits to sniffing a drug today. He is more alert and coming around per EMS after narcan. At this time he is in new rapid afib but denies CP/SOB will obtain labs, CXR, EKG, CT head for ICH he is not sure if he fell. Drug screen. IV dilt for rapid afib last ECHO EF 60%. Differential Diagnosis Differential Diagnoses: The differential diagnosis associated with the presentation includes drug abuse, rapid afib Admission/Observation Consideration of admission/observation: Escalation of care including admission/observation considered admit given afib with RVR, elevated troponin discussed heparin with family and admission no contraindications to thinning blood - CT head negative Consult Healthcare Provider Management of the patient was discussed with: Hospitalist (will admit) and Entry Level Automotive Technician (Dr. Del Rio - brooks troponin, bblocker cocaine is negative, heparin gtt) Lab Data MDM Lab Attestation statement: I reviewed the patient's lab results. troponin has increased 08/14/23 09:51 08/14/23 11:35 Labs: Lab Results 08/14/23 08/14/23 08/14/23 Range/Units 09:51 10:17 10:40 WBC 11.5 H (4.8-10.8) X10*3/uL RBC 4.96 (4.60-5.80) X10*6/uL Hgb 13.0 L (14.0-18.0) g/dl Hct 40.6 L (42.0-52.0) % MCV 81.9 (80.0-98.0) fL MCH 26.2 L (27.0-33.0) pg MCHC 32.0 (31.0-36.0) g/dl RDW 16.8 H (11.0-16.0) % Plt Count 174 D (160-400) X10*3/uL MPV 10.9 (9.4-12.4) fL Immature Gran % (Auto) 0.4 (0.0-0.4) % Neut % (Auto) 74.2 H (45-73) % Lymph % (Auto) 16.3 L (20-40) % [place] % (Auto) 6.2 (2-11) % Eos % (Auto) 2.6 (0-4) % Baso % (Auto) 0.3 (0-2) % Lymph # (Auto) 1.9 (1.2-4.9) X10*3/uL [place] # (Auto) 0.7 (0.1-1.2) X10*3/uL Eos # (Auto) 0.3 (0.0-0.4) X10*3/uL Baso # (Auto) 0.0 (0.0-0.2) X10*3/uL Abs Immat Gran (auto) 0.05 H (0.00-0.03) X10*3/uL Absolute Neuts (auto) 8.6 H (2.0-8.3) x10*3/uL Absolute Nucleated RBC 0.000 (0.0-0.012) X10*3/uL Nucleated RBC % (auto) 0.0 (0.0-0.2) /100WBC PT 11.6 (11.1-13.3) SEC INR 1.0 (0.9-1.1) Sodium Cancelled Potassium Cancelled Chloride Cancelled Carbon Dioxide Cancelled Anion Gap Cancelled BUN Cancelled Creatinine Cancelled Estim Creat Clear Calc Cancelled Estimated GFR Cancelled Random Glucose Cancelled Calcium Cancelled Magnesium Cancelled Total Bilirubin Cancelled Direct Bilirubin Cancelled AST Cancelled ALT Cancelled Alkaline Phosphatase Cancelled Troponin I High Sens 31.7 (<3.5-35.0) ng/L B-Natriuretic Peptide 54 (<100) pg/mL Total Protein Cancelled Albumin Cancelled Lipase Cancelled TSH Cancelled Urine Opiates Screen (Not Detect) Ur Buprenorphine Scrn (Not Detect) ng/mL Ur Oxycodone Screen (Not Detect) ng/mL Urine Methadone Screen (Not Detect) ng/mL Urine Fentanyl Screen (Not Detect) Ur Barbiturates Screen (Not Detect) Ur Phencyclidine Scrn (Not Detect) Ur Amphetamines Screen (Not Detect) U Benzodiazepines Scrn (Not Detect) Urine Cocaine Screen (Not Detect) U Marijuana (THC) Screen (Not Detect) Ethyl Alcohol Cancelled 08/14/23 08/14/23 08/14/23 Range/Units 11:00 11:35 13:31 WBC (4.8-10.8) X10*3/uL RBC (4.60-5.80) X10*6/uL Hgb (14.0-18.0) g/dl Hct (42.0-52.0) % MCV (80.0-98.0) fL MCH (27.0-33.0) pg MCHC (31.0-36.0) g/dl RDW (11.0-16.0) % Plt Count (160-400) X10*3/uL MPV (9.4-12.4) fL Immature Gran % (Auto) (0.0-0.4) % Neut % (Auto) (45-73) % Lymph % (Auto) (20-40) % [place] % (Auto) (2-11) % Eos % (Auto) (0-4) % Baso % (Auto) (0-2) % Lymph # (Auto) (1.2-4.9) X10*3/uL [place] # (Auto) (0.1-1.2) X10*3/uL Eos # (Auto) (0.0-0.4) X10*3/uL Baso # (Auto) (0.0-0.2) X10*3/uL Abs Immat Gran (auto) (0.00-0.03) X10*3/uL Absolute Neuts (auto) (2.0-8.3) x10*3/uL Absolute Nucleated RBC (0.0-0.012) X10*3/uL Nucleated RBC % (auto) (0.0-0.2) /100WBC PT (11.1-13.3) SEC INR (0.9-1.1) Sodium 141 Potassium 3.5 Chloride 103 Carbon Dioxide 28 Anion Gap 14 BUN 21 H Creatinine 1.16 Estim Creat Clear Calc 58.5 Estimated GFR > 60 Random Glucose 165 H Calcium 9.5 Magnesium 2.0 Total Bilirubin 0.5 Direct Bilirubin 0.4 AST 24 ALT 18 Alkaline Phosphatase 65 Troponin I High Sens 512.2 H* D (<3.5-35.0) ng/L B-Natriuretic Peptide (<100) pg/mL Total Protein 7.9 Albumin 4.5 Lipase 17 TSH 1.15 Urine Opiates Screen Not Detected (Not Detect) Ur Buprenorphine Scrn Not Detected (Not Detect) ng/mL Ur Oxycodone Screen Not Detected (Not Detect) ng/mL Urine Methadone Screen Not Detected (Not Detect) ng/mL Urine Fentanyl Screen POSITIVE H (Not Detect) Ur Barbiturates Screen Not Detected (Not Detect) Ur Phencyclidine Scrn Not Detected (Not Detect) Ur Amphetamines Screen Not Detected (Not Detect) U Benzodiazepines Scrn Not Detected (Not Detect) Urine Cocaine Screen Not Detected (Not Detect) U Marijuana (THC) Screen Not Detected (Not Detect) Ethyl Alcohol Independent Interpretation I performed an independent interpretation of an: EKG, Plain X-Ray (normal ) and CT Scan (no ICH) Interpretation: Rate: 127 Rhythm: afib [place]: left Normal QRS complex. ST T wave : no MEGAN, flat t wave aVL qTC: 476 prior studies: afib is new The study has been interpreted contemporaneously by me. . Radiology Impression Discussion of test interpretation with radiology: I have reviewed the radiologist's reading. Independent Historian Clinical information obtained from an independent historian. History obtained from or confirmed by: EMS External Record Review External record reviewed: Inpatient record and Office record Critical Care Time Critical Care Time Critical Care Time: Yes Total Critical Care Time: 60 Attestation: repeat labs, repeat IV bolus of diltiazem, diltiazem gtt, medical consult, admission I attest to this time spent taking care of the patient Discharge Plan Discharge Clinical Impression: Accidental drug overdose, Atrial fibrillation with rapid ventricular response, Elevated troponin Patient Disposition: Admitted As Inpatient Prescriptions: No Action atorvastatin 40 mg tablet 40 mg PO BEDTIME hydrochlorothiazide 12.5 mg capsule 12.5 mg PO DAILY hydrocortisone 1 % cream 1 appl topical BID PRN (Reason: Itching) levothyroxine 75 mcg tablet 75 mcg PO DAILY buprenorphine-naloxone [Suboxone] 8-2 mg film 2 film sublingual DAILY Rx Instructions: place 1 strip/tab under (each) side of tongue metoprolol succinate 25 mg tablet extended release 24 hr 25 mg PO DAILY methadone 5 mg tablet 5 mg PO DAILY Print Language: Armenian
[2023-08-14 10:20] LABS: Troponin-I High Sensitivity 31.7 ng/L (<3.5-35.0)
[2023-08-14] MEDS: dilTIAZem HCL 50 MG/10 ML VIAL 10 MG IVPUSH (10:38)
--- NOTE | 2023-08-14 10:43 | PC.NURSE ---
pt remains in afib on the awake overnight monitor - HR between 120-130 bpm. pt denies chest pain/palpations/sob. medication administered per provider order. effectiveness pending.
[2023-08-14 10:57] LABS: B Type Natriuretic Peptide 54 pg/mL (<100)
--- NOTE | 2023-08-14 11:00 | PC.NURSE ---
urine obtained/sent to lab.
[2023-08-14] MEDS: diphenhydrAMINE HCL 50 MG/ML VIAL 25 MG IVPUSH (11:39)
[2023-08-14] MEDS: dilTIAZem HCL 125 MG in 0.9 % Sodium Chloride 100 ML 10 MG IVCONT (11:40)
--- NOTE | 2023-08-14 11:46 | PC.NURSE ---
pt noted to have hives throughout LE. denies itchiness. no erythema noted. hives remain in one spot - no radiation to other areas noted. no sob/wob/wheezing noted. lung sounds CTA. provider notified/aware. benadryl administered per provider order. effectiveness pending. pt remains in afib - HR in the 120s. cardizem drip started per protocol.
[2023-08-14 12:04] LABS: Amphetamine Screen Urine Not Detected (Not Detect); Barbiturates, Urine Not Detected (Not Detect); Benzodiazepines Screen Urine Not Detected (Not Detect); Buprenorphine Scr Not Detected (Not Detect); Cannabinoid Screen Urine Not Detected (Not Detect); Cocaine Screen Urine Not Detected (Not Detect); Fentanyl, urine POSITIVE (Not Detect); Methadone Screen, Urine Not Detected (Not Detect); Opiate Screen Urine Not Detected (Not Detect); Oxycodone Screen Urine Not Detected (Not Detect); Phencyclidine Screen Urine Not Detected (Not Detect)
[2023-08-14 12:05] LABS: Alanine Aminotransferase 18 U/L (0-40); Albumin Level 4.5 g/dL (3.5-5.0); Alkaline Phosphatase 65 U/L (39-117); Anion Gap 14 (12-20); Aspartate Amino Transferase 24 U/L (5-37); Bilirubin Direct 0.4 mg/dL (0.0-0.5); Bilirubin Total 0.5 mg/dL (0.0-1.0); Blood Urea Nitrogen 21 mg/dL (9-16); Calcium 9.5 mg/dL (8.4-10.2); Carbon Dioxide 28 mmol/L (22-29); Chloride 103 mmol/L (96-108); Creatinine Clr Calc Pharmacy 58.5; Estimated Glomerular Filt Rate > 60; Glucose Random 165 mg/dL (60-115); Lipase 17 U/L (8-78); Potassium 3.5 mmol/L (3.3-5.1); Sodium 141 mmol/L (135-145); Total Protein 7.9 g/dL (6.5-8.0)
[2023-08-14 12:19] LABS: TSH reflex Free T4 1.15 uIU/mL (0.32-4.0)
[2023-08-14 13:59] LABS: Troponin-I High Sensitivity 512.2 ng/L (<3.5-35.0)
[2023-08-14] MEDS: Heparin Sodium,Porcine 5,000 UNIT/ML VIAL 4000 UNIT IVPUSH (14:36)
[2023-08-14] MEDS: Aspirin 81 MG TAB.CHEW PO (14:36)
[2023-08-14] MEDS: Heparin Sodium,Porcine/1/2NS 25,000 UNIT/250 ML IV.SOLN 9.96 UNIT IVCONT (14:41)
--- NOTE | 2023-08-14 14:45 | PC.NURSE ---
pt spoke w/ hospitalist in regards to plan of care. pt aware of plan of care moving forward. medication administered per provider order.
--- NOTE | 2023-08-14 14:46 | P.HPHOSP_ITS ---
<Statement entered by Best Biggs MD - 08/14/23 15:54> the patient was seen and evaluated with DINH Osborn. I agree with her note, assessment and plan with the following. In summary, A 73 year old male w PMH of CKD3, Hep C, hypothyroidism, HTN, OUD with history of IVDA presented with collapse after overdose with new onset atrial fibrillation with rvr and NSTEMI. # NSTEMI No reported chest pain or significant EKG changes Start IV heparin drip cardiology eval, echo, BB and ASA #New onset atrial fibrillation with rvr started on cardizem drip in ED PO metoprolol 25mg bid on Heparin drip for AC Rest of evaluations by DINH note. History of Present Illness Date of Service: 08/14/23 Attending physician on admission: Best Biggs Chief Complaint: unresponsive 73 year old male with history of ckd stage 3, hepatitis c, hypothyroidism, htn, OUD with history of IVDA presented to the ED earlier today after going unresponsive at home while talking with his . The patient is seen at bedside with a hungarian interpretor. The patient reports he went out for a walk this morning and sniffed an unknown substance. He returned home and was talking to his and then does not recall any events. Per the , the patient went unresponsive and called EMS. On EMS arrival, the patient was unrepsonive with pinpoint pupils and was hypoxic in the 80s. He was given 1mg narcan with improvement and brought to the ED for evaluation. On arrival, no hypoxia, 97% on RA. However, tachcyardia in the 130s with stable BP. EKG shows new afib with rvr, rate [address] depressions in anterior leads, no rowdy. The patient is asymptomatic- no lightheadedness, dyspnea, palpitations, chest pain. He has a leukocytosis of 11.5, stable normocytic anemia. Renal function baseline, lytes normal. Initial trop 31.7, repeat 512. TSH 1.15. Utox positive for fentanyl only. CXR shows possible atelectasis vs infectious/inflammatory process and possible trace pleural effusion. Head CT negative for acute intracranial abnormality. [facility] ED, given IV dilt push x 2 without improvement and started on dilt drip. Ed discussed case with cardiology recommending metoprolol, heparin and troponin trend. Review of Systems 2 Review of Systems: Yes all other systems are reviewed and are negative [facility] Medical History CKD (chronic kidney disease) stage 3, GFR 30-59 ml/min Hypothyroidism Anemia Insomnia Anxiety Hepatitis C Thyroid disease History of colon polyps HTN (hypertension) Surgical History H/O umbilical hernia repair H/O colonoscopy Social History Patient Tobacco Use Status: Never used Tobacco Advance Directives: No Advance Directives Information Provided: Yes Do you have a plan to hurt others: No Plan Meds Allergies Allergy/AdvReac Type Severity Reaction Status Date / Time No Known Allergies Allergy Verified 08/14/23 09:42 [No Known Allergies*] Active Medications: Current Medications Heparin Sodium (Porcine) (Heparin Sodium,Porcine 5,000 Unit/Ml Vial) 3,300 unit 40 unit/kg (3300 unit) IVPUSH PROTOCOL BOLUS PRN; Protocol PRN Reason: 40 unit/kg - Heparin Protocol Heparin Sodium (Porcine) (Heparin Sodium,Porcine 5,000 Unit/Ml Vial) 6,600 unit 80 unit/kg (6600 unit) IVPUSH PROTOCOL BOLUS PRN; Protocol PRN Reason: 80 unit/kg - Heparin Protocol Diltiazem HCl 125 mg/ Sodium (Chloride) 125 mls @ 0 mls/hr IVCONT .Q0M BAN; Protocol Last Admin: 08/14/23 11:40 Dose: 10 mg/hr, 10 mls/hr Heparin Sodium/Sodium Chloride (Heparin Sodium,Porcine/1/2ns) 25,000 unit in 250 mls @ 0 mls/hr IVCONT .Q0M BAN; Protocol Last Admin: 08/14/23 14:41 Dose: 12 units/kg/hr, 9.96 mls/hr Home Medications ?Medication ?Instructions ?Recorded ?Confirmed ?Last Taken ?Type atorvastatin 40 mg tablet 40 mg PO BEDTIME 06/02/20 05/03/23 Unknown History buprenorphine 8 mg-naloxone 2 mg 2 film sublingual DAILY 06/02/20 05/03/23 Unknown History sublingual film (Suboxone) hydrochlorothiazide 12.5 mg capsule 12.5 mg PO DAILY 06/02/20 05/03/23 Unknown History hydrocortisone 1 % topical cream 1 appl topical BID PRN Itching 06/02/20 05/03/23 Unknown History levothyroxine 75 mcg tablet 75 mcg PO DAILY 06/02/20 05/03/23 Unknown History methadone 5 mg tablet 5 mg PO DAILY 03/21/23 05/03/23 Unknown History metoprolol succinate 25 mg 25 mg PO DAILY 04/18/23 05/03/23 Unknown History tablet,extended release 24 hr Physical Exam 2 Vital Signs and Narrative: Vital Signs: Last Vital Signs Temp 98.5 F 08/14/23 13:10 Pulse 109 H 08/14/23 13:10 Resp 13 08/14/23 13:10 BP 117/64 08/14/23 13:10 Pulse Ox 92 08/14/23 13:10 O2 Del Method Room Air 08/14/23 13:10 BMI result Body Mass Index 26.3 Constitutional - Awake and Alert, No apparent distress Eyes - PERRLA, EOMI Cardiovascular - S1S2, irregularly irregular, tachycardic, 1+ ble edema Respiratory - Normal lung expansion, Normal respiratory effort, No respiratory distress, CTA bilaterally Gastrointestinal - NT / ND; +BS; No rebound or guarding Extremities - no calf tenderness bilaterally, no swelling Skin - Warm/Dry Neurological - Alert & oriented x3 Psychological - Appropriate affect Results Labs 08/14/23 09:51 08/14/23 11:35 Labs: Laboratory Results - last 24 hr 08/14/23 08/14/23 08/14/23 09:51 10:17 10:40 MCV 81.9 MCH 26.2 L MCHC 32.0 RDW 16.8 H Plt Count 174 D MPV 10.9 Immature Gran % (Auto) 0.4 Neut % (Auto) 74.2 H Lymph % (Auto) 16.3 L [place] % (Auto) 6.2 Eos % (Auto) 2.6 Baso % (Auto) 0.3 Lymph # (Auto) 1.9 [place] # (Auto) 0.7 Eos # (Auto) 0.3 Baso # (Auto) 0.0 Abs Immat Gran (auto) 0.05 H Absolute Neuts (auto) 8.6 H Absolute Nucleated RBC 0.000 Nucleated RBC % (auto) 0.0 PT 11.6 INR 1.0 Anion Gap Cancelled Estim Creat Clear Calc Cancelled Estimated GFR Cancelled Random Glucose Cancelled Calcium Cancelled Magnesium Cancelled Total Bilirubin Cancelled Direct Bilirubin Cancelled AST Cancelled ALT Cancelled Alkaline Phosphatase Cancelled Total Creatine Kinase Troponin I High Sens 31.7 B-Natriuretic Peptide 54 Total Protein Cancelled Albumin Cancelled Lipase Cancelled TSH Cancelled Urine Opiates Screen Ur Buprenorphine Scrn Ur Oxycodone Screen Urine Methadone Screen Urine Fentanyl Screen Ur Barbiturates Screen Ur Phencyclidine Scrn Ur Amphetamines Screen U Benzodiazepines Scrn Urine Cocaine Screen U Marijuana (THC) Screen Ethyl Alcohol Cancelled 08/14/23 08/14/23 08/14/23 11:00 11:35 13:31 MCV MCH MCHC RDW Plt Count MPV Immature Gran % (Auto) Neut % (Auto) Lymph % (Auto) [place] % (Auto) Eos % (Auto) Baso % (Auto) Lymph # (Auto) [place] # (Auto) Eos # (Auto) Baso # (Auto) Abs Immat Gran (auto) Absolute Neuts (auto) Absolute Nucleated RBC Nucleated RBC % (auto) PT INR Anion Gap 14 Estim Creat Clear Calc 58.5 Estimated GFR > 60 Random Glucose 165 H Calcium 9.5 Magnesium 2.0 Total Bilirubin 0.5 Direct Bilirubin 0.4 AST 24 ALT 18 Alkaline Phosphatase 65 Total Creatine Kinase 143 Troponin I High Sens 512.2 H* D B-Natriuretic Peptide Total Protein 7.9 Albumin 4.5 Lipase 17 TSH 1.15 Urine Opiates Screen Not Detected Ur Buprenorphine Scrn Not Detected Ur Oxycodone Screen Not Detected Urine Methadone Screen Not Detected Urine Fentanyl Screen POSITIVE H Ur Barbiturates Screen Not Detected Ur Phencyclidine Scrn Not Detected Ur Amphetamines Screen Not Detected U Benzodiazepines Scrn Not Detected Urine Cocaine Screen Not Detected U Marijuana (THC) Screen Not Detected Ethyl Alcohol Imaging Radiologist's Impressions: Impressions Chest X-Ray 08/14/23 10:29 IMPRESSION: Streaky bibasilar opacities may represent atelectasis, but an infectious/inflammatory process should also be considered. Possible trace left pleural effusion. This study was presented today, August 14, 2023, for interpretation. Stat results provided at this time as requested by referring provider. Head CT 08/14/23 10:35 IMPRESSION: * No acute intracranial pathology. * Mild mucosal thickening in some of the ethmoid air cells. Assessment and Plan (1) Atrial fibrillation with rapid ventricular response: Status: Acute (2) Elevated troponin: Status: Acute (3) Accidental drug overdose: Qualifiers: Encounter type: initial encounter Qualified Code(s): T50.901A - Poisoning by unspecified drugs, medicaments and biological substances, accidental (unintentional), initial encounter Status: Acute Plan 73 year old male with history of ckd stage 3, hepatitis c, hypothyroidism, htn, OUD with history of IVDA admitted for new onset atrial fibrillation with rvr and nstemi #New onset atrial fibrillation with rvr -cardizem drip per protocol, wean as able -start metoprolol 25mg bid -heparin drip for ac -cardiac diet -echo -give lasix 20mg daily- not symptomatic of failure but has pleural effusion, likely 2/2 to rvr -monitor rvr -cardiology consult -monitor on tele #NSTEMI -possibly type 2 due to demand, but significant trop elevation/delta -trop 30- -->512 -ekg with new afib rvr and st depressions in anterior leads -heparin drip per protocol -echo -trend trop -given asa, consider 81 mg daily -start metoprolol 25mg bid -lipid panel pending, continue statin -cardiology consult #HTN -continue hctz. change metoprolol to 25mg bid as above #Hypothyroisism -euthyroid with tsh 1.15 -continue levothyroxine #OUD with accidental drug overdose -utox positive for fentanyl -continue methadone -declines addiction med consult dvt prophylaxis- heparin drip full code pt requires inpt stay at least 2 midnights for management of new onset afib with rvr on dilt drip and nstemi on heparin drip. he will require close cardiac monitoring, trending of troponins, and expert consultatiomn Quality Stroke Does the patient have a stroke diagnosis?: No VTE Prior VTE?: No VTE Risk Level:: Medical - moderate - high VTE Device Contraindication: Treatment Not Indicated VTE Drug Contraindication: N/A - Med Ordered
[2023-08-14 15:02] LABS: Cholesterol 142 mg/dL (<200); HDL Cholesterol 52 mg/dL (>40); LDL Cholesterol Calculated 79 mg/dL (<100); Triglycerides 58 mg/dL (<150)
[2023-08-14] MEDS: Metoprolol Tartrate 25 MG TABLET PO ×2 (15:47→21:22)
[2023-08-14] MEDS: Furosemide 20 MG/2 ML VIAL IVPUSH (15:47)
--- NOTE | 2023-08-14 15:49 | PC.NURSE ---
pt remains in afib. HR between 100-130bpm. denies chest pain/palpitations/sob. medication administered per provider order. pt waiting for bed assignment at this time. plan of care ongoing. call fermin placed within reach.
--- NOTE | 2023-08-14 17:50 | PHA.MEDREC ---
Pharmacy Consult ? Medication Reconciliation Pharmacy has completed the medication reconciliation. Confirmed medications with core shaper and family members.
--- NOTE | 2023-08-14 18:07 | PC.NURSE ---
HR remains afib but fluctuates between 85-95bpm. provider notified/aware. cardizem drip paused at this time.
[2023-08-14 18:56] LABS: PTT Heparin Drip 84.6 SEC (53-77.9)
--- NOTE | 2023-08-14 19:24 | PC.NURSE ---
Pt resting at the bedside. Denie any pain or discomfort at this time. Continues to show a-fib on the monitor, HR 80's. Cardizem drip on hold at this time. Heparin drip titrated to 10u/kg/hr per protocol. Bed assignment pending. Pt is aware of plan of care. Critical lab result received: Troponin 653.[address] [place] text sent to Dr. Ochoa. No new orders at this time.
[2023-08-14 19:27] LABS: Troponin-I High Sensitivity 653.1 ng/L (<3.5-35.0)
[2023-08-15] VITALS (9 sets, daily range): BP systolic 91–120; BP diastolic 50–69; PULSE 65–80; RESP 15–20; TEMP 36.2–36.9; O2SAT 94–96
[2023-08-15 02:02] LABS: PTT Heparin Drip 117.3 SEC (53-77.9)
[2023-08-15 03:21] LABS: MANUAL DIFF FLAG NO
[2023-08-15 03:23] LABS: Basophils Percent Auto 0.3 % (0-2); Eosinophils Absolute Auto 0.4 X10*3/uL (0.0-0.4); Eosinophils Percent Auto 4.4 % (0-4); Hematocrit 35.6 % (42.0-52.0); Hemoglobin 11.6 g/dl (14.0-18.0); Imm Gran Abs Auto 0.03 X10*3/uL (0.00-0.03); Imm Gran Pct Auto 0.3 % (0.0-0.4); Lymphocytes Absolute Auto 1.9 X10*3/uL (1.2-4.9); Lymphocytes Percent Auto 20.3 % (20-40); Mean Corpuscular HGB Conc 32.6 g/dl (31.0-36.0); Mean Corpuscular Hemoglobin 26.1 pg (27.0-33.0); Mean Platelet Volume 11.9 fL (9.4-12.4); Monocytes Percent Auto 11.1 % (2-11); Neutrophils Absolute Auto 5.8 x10*3/uL (2.0-8.3); Neutrophils Percent Auto 63.6 % (45-73); Platelet Count 150 X10*3/uL (160-400); Red Blood Count 4.45 X10*6/uL (4.60-5.80); Red Cell Distribution Width 16.6 % (11.0-16.0); White Blood Count 9.2 X10*3/uL (4.8-10.8)
[2023-08-15 03:28] LABS: Prothrombin Time 12.7 SEC (11.1-13.3)
[2023-08-15 03:31] LABS: PTT Heparin Drip 75.9 SEC (53-77.9)
[2023-08-15 03:36] LABS: Anion Gap 13 (12-20); Blood Urea Nitrogen 23 mg/dL (9-16); Calcium 8.9 mg/dL (8.4-10.2); Carbon Dioxide 29 mmol/L (22-29); Chloride 103 mmol/L (96-108); Creatinine Clr Calc Pharmacy 56.6; Estimated Glomerular Filt Rate 59; Glucose Random 98 mg/dL (60-115); Potassium 3.7 mmol/L (3.3-5.1); Sodium 141 mmol/L (135-145)
--- NOTE | 2023-08-15 07:00 | CA_ITS ---
Transthoracic Echocardiogram Patient (Last, First, Middle): Serafin Steele, Gender: Male Date of : 1950 Age: 73 Procedure Date: 08/15/2023 Procedure Type: Transthoracic Echocardiogram Location: [facility] [place] Height: 177.8 cm Weight: 82.56 kg BSA: 2.01 m2 Heart Rate: 80 bpm BP: 117 / 64 mmHg Mail Caller: SB Referring MD: Cherry TAO Spray Stainer: Rubio Del Rio MD Symptoms: afib rvr, nstemi Study Quality: Fair but adequate ECG Rhythm: Sinus Conclusions: - 1. Normal LV ejection fraction with grade 1 diastolic dysfunction 2. Normal cardiac valvular Doppler 3. Upper limits of normal ascending aortic size 4. Normal RV systolic pressure 5. No pericardial effusion Findings Procedure Information The quality of the study was technically difficult. The study quality is limited by lung artifact. Left Ventricle Normal left ventricular size, thickness, and systolic function. The visually estimated ejection fraction is between 55-60%. Spectral Doppler is indicative of an impaired relaxation filling pattern. E/E prime ratio is <8, consistent with normal filling pressures. Evidence suggests grade I (mild) diastolic dysfunction. Right Ventricle Normal right ventricular cavity size and systolic function. Atria Both atria are normal in size. There is lipomatous hypertrophy of the interatrial septum. There is no evidence of interatrial shunt. Aortic Valve Normal aortic valve structure and function. There is no aortic valve stenosis. There is no aortic valve regurgitation. Mitral Valve Normal mitral valve structure and function. There is trace mitral valve regurgitation. There is no mitral valve stenosis. Pulmonic Valve The pulmonic valve is likely normal. There is trace pulmonic valve regurgitation. Tricuspid Valve Normal tricuspid valve structure. There is mild tricuspid valve regurgitation. The right ventricular systolic pressure is normal. The right ventricular systolic pressure is 34 mmHg. Normal right atrial pressure. There is no evidence of pulmonary hypertension. Great Vessels All visible segments of the aorta are normal in size. The pulmonary artery was not well visualized. Venous The inferior vena cava is normal in size and collapses greater than 50% with inspiration. Pericardium/Pleural There is no evidence of pericardial effusion. Measurements 2D Linear Measurements RVIDd: 4.17 IVSd: 1.16 0.6-0.9/0.6-1.0 cm LVIDd: 3.87 3.9-5.3/4.2-5.9 cm LVIDd Index: 1.93 2.4-3.2/2.2-3.1 cm/m2 LVIDs: 2.45 2.0-3.6 cm LVPWd: 1.00 0.7-1.1 cm Ao Root: 3.10 2.1-3.5 cm LA Diam: 3.40 2.7-3.8/3.0-4.0 cm LAIDs Index: 1.69 1.5-2.3 cm/m2 LV Mass: 172.32 67-162/88-224 g LV Mass Index: 85.73 43-95/49-115 g/m2 LVOT Diam: 2.20 3.0+(-)1.3 cm 2D Volumes LV EDV: 50.10 56-104/67-155 ml LV ESV: 21.50 19-49/22-58 ml LA ESV A/L: 19.10 22-52/18-58 ML/M2 RA ESV A/L: 30.00 19-21 ML/M2 2D Systolic Function EF 4C: 47.00 >55% EF 2C: 67.00 >55% EF BiP: 57.00 >55% Mitral Valve MV Pk E: 0.72 MV PK A: 0.65 MV Decel Time: 4.00 E/A: 1.10 E'Lateral: 8.05 E'Medial: 7.83 E/E' Med: 9.30 E/E' Lat: 9.00 PHT: 60.00 MVA PHT: 3.67 Decel [place]: 3.57 Aortic Valve AoV Pk Enio: 1.22 AoV Pk Grad: 6.00 LIZETTE: 4.30 LVOT LVOT Pk Enio: 1.38 LVOT Mn Enio: 0.93 LVOT VTI: 25.00 LVOT Pk Grad: 8.00 LVOT Mn Grad: 4.00 LVOT Diam: 2.20 LVOT Area: 3.80 Diastolic Function MV Pk E: 0.72 MV Pk A: 0.65 E/A: 1.10 E'Medial: 7.83 E/E' Med: 9.30 E' Laterial: 8.05 E/E' Lat: 9.00 Right Ventricle TAPSE (mm): 22.10 TVS' Enio: 11.60 Tricuspid Valve TR Pk Enio: 2.78 TR Pk Grad: 31.00 RA Press: 3.00 RVSP: 34.00 Great Vessels Aorta Ao Root-2D: 3.10 2.0-3.7 cm Sinus of Valsalva: 3.10 2.0-3.5 cm Ao Asc: 3.60 2.1-3.4 cm Pulmonary Valve PV Pk Enio: 0.89 Peak PV Grad: 3.00 Updated in Other Vendor System with Status of Final Rubio Del Rio MD electronically signed on 08/15/2023 11:44:12 AM with status of Final
[2023-08-15] MEDS: Metoprolol Tartrate 25 MG TABLET PO ×2 (08:43→20:16)
[2023-08-15] MEDS: Aspirin Enteric Coated 81 MG TABLET.DR PO (08:43)
[2023-08-15 10:51] LABS: PTT Heparin Drip 61.5 SEC (53-77.9)
[2023-08-15] MEDS: Levothyroxine Sodium 75 MCG TABLET PO (11:15)
--- NOTE | 2023-08-15 11:26 | P.CONCA_ITS ---
History of Present Illness History of Present Illness Date of Service: 08/15/23 Requesting physician: Kt Walker Consult reason: atrial fibrillation and myocardial infarction Chief complaint: afib rvr nstemi Narrative: I was consulted to see Serafin in cardiology consultation today for elevated troponins and atrial fibrillation. History was obtained with help of perishable freight inspector with his significant other present at bedside who corroborated the history. 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 On the day of admission patient said he found some bags which she thought would drugs and he inhaled/tested to see what they were. Following that he started getting altered mental status and then as per the he stopped breathing. Patient's 2 sons were at bedside and they called EMT. Patient was constantly being showed can not but did not awake and remained unresponsive and as per the significant other was turning cyanotic. When EMS arrived he was noted to be hypoxic, unresponsive with pinpoint pupils. He was then given Narcan with improvement and brought to the ED for evaluation. On arrival to the ED he was not hypoxic anymore but was noted to be in atrial fibrillation rapid ventricular response with new nonspecific ST T wave changes in inferior and high lateral leads. His initial troponin was 31.7 with subsequent troponin of 512 and was admitted. U tox positive for fentanyl with no cocaine. Chest x-ray was suggestive of new infiltrate. Patient was then treated with IV diltiazem but by the time he came to the floor he had converted to sinus rhythm. He was started on metoprolol, heparin and was admitted for further observation and management. No repeat troponins were done despite the 3rd troponin further elevated at 653. No repeat EKGs have been done. Patient denied any chest pain. Denies any palpitations. No prior history of coronary artery disease and/or atrial fibrillation as per him. Echocardiogram is pending Review of Systems 2 Constitutional: Constitutional: Reports no additional constitutional complaints Eyes: Eyes: Reports no additional eye complaints Cardiovascular: Cardiovascular: Reports no additional cardiovascular complaints Gastrointestinal: Gastrointestinal: Reports no additional gastrointestinal complaints Neurologic: Reports system reviewed and no additional complaints, except as documented [facility] Past Medical History Medical History CKD (chronic kidney disease) stage 3, GFR 30-59 ml/min Hypothyroidism Anemia Insomnia Anxiety Hepatitis C Thyroid disease History of colon polyps HTN (hypertension) Surgical History Surgical History H/O umbilical hernia repair H/O colonoscopy Social History Social History Alcohol intake: current Alcohol intake frequency: holidays/special occasions only Patient Tobacco Use Status: Never used Tobacco Substance Use Type: Other Meds Allergies Allergy/AdvReac Type Severity Reaction Status Date / Time No Known Allergies Allergy Verified 08/14/23 09:42 [No Known Allergies*] Active Medications: Current Medications Acetaminophen (Acetaminophen 325 Mg Tablet) 650 mg PO Q6H PRN PRN Reason: Pain, Mild (Pain Scale 1-3) Aspirin (Aspirin Enteric Coated 81 Mg Tablet.Dr) 81 mg PO DAILY BAN Last Admin: 08/15/23 08:43 Dose: 81 mg Atorvastatin Calcium (Atorvastatin Calcium 40 Mg Tablet) 40 mg PO BEDTIME BAN Furosemide (Furosemide 20 Mg/2 Ml Vial) 20 mg IVPUSH DAILY BAN; Protocol Last Admin: 08/15/23 08:24 Dose: Not Given Heparin Sodium (Porcine) (Heparin Sodium,Porcine 5,000 Unit/Ml Vial) 3,300 unit 40 unit/kg (3300 unit) IVPUSH PROTOCOL BOLUS PRN; Protocol PRN Reason: 40 unit/kg - Heparin Protocol Heparin Sodium (Porcine) (Heparin Sodium,Porcine 5,000 Unit/Ml Vial) 6,600 unit 80 unit/kg (6600 unit) IVPUSH PROTOCOL BOLUS PRN; Protocol PRN Reason: 80 unit/kg - Heparin Protocol Diltiazem HCl 125 mg/ Sodium (Chloride) 125 mls @ 0 mls/hr IVCONT .Q0M BAN; Protocol Last Titration: 08/14/23 18:07 Dose: 0 mg/hr, 0 mls/hr Heparin Sodium/Sodium Chloride (Heparin Sodium,Porcine/1/2ns) 25,000 unit in 250 mls @ 0 mls/hr IVCONT .Q0M BAN; Protocol Last Titration: 08/15/23 10:58 Dose: 6 units/kg/hr, 4.98 mls/hr Levothyroxine Sodium (Levothyroxine Sodium 75 Mcg Tablet) 75 mcg PO DAILY@0600 BAN Last Admin: 08/15/23 11:15 Dose: 75 mcg Magnesium Hydroxide (Milk Of Magnesia 30 Ml Oral.Susp) 30 ml PO DAILY PRN PRN Reason: Constipation Metoprolol Tartrate (Metoprolol Tartrate 25 Mg Tablet) 25 mg PO BID [facility]; Protocol Last Admin: 08/15/23 08:43 Dose: 25 mg Ondansetron HCl (Ondansetron Hcl 4 Mg/2 Ml Vial) 4 mg IVPUSH Q8H PRN PRN Reason: Nausea and Vomiting Sodium Chloride (0.9 % Sodium Chloride Flush 3 Ml Syringe) 3 ml IVFLUSH QSHIFT [facility] Last Admin: 08/15/23 08:44 Dose: Not Given Home Medications ?Medication ?Instructions ?Recorded ?Confirmed ?Last Taken ?Type atorvastatin 40 mg tablet 40 mg PO BEDTIME 06/02/20 08/14/23 08/13/23 History hydrocortisone 1 % topical cream 1 appl topical DAILY PRN Itching 06/02/20 08/14/23 08/13/23 History levothyroxine 75 mcg tablet 75 mcg PO DAILY 06/02/20 08/14/23 08/13/23 History metoprolol succinate 25 mg 25 mg PO DAILY 04/18/23 08/14/23 08/13/23 History tablet,extended release 24 hr hydrochlorothiazide 12.5 mg tablet 12.5 mg PO DAILY 08/14/23 08/14/23 08/13/23 History Physical Exam 2 Vital Signs: Vital Signs: Last Vital Signs Temp 98.0 F 08/15/23 07:40 Pulse 65 08/15/23 08:43 Resp 16 08/15/23 04:00 BP 98/57 L 08/15/23 08:43 Pulse Ox 96 08/15/23 07:40 O2 Del Method Room Air 08/15/23 07:40 BMI result Body Mass Index 26.3 Const: General: cooperative, comfortable, no acute distress, alert, awake and Physically active Nutritional Appearance: average body habitus O rientation/consciousness: patient oriented x3 Limitations: no limitations HEENT: Head: Yes normocephalic and Yes atraumatic Neck: Neck: Yes trachea midline, Yes supple and Yes no JVD Resp: Effort & Inspection: normal respiratory effort Auscultation: other (Coarse breath sounds at both bases) Cardio: Jugular venous distension: no JVD Palpation: normal PMI Rate: r egular rate Rhythm: regular rhythm Heart sounds: S1 normal heart sound present, S2 normal heart sound present, no click, no gallops, no murmurs and no rubs GI: Auscultation: normal bowel sounds Skin: General skin exam: no rashes or lesions noted Neuro: General: patient oriented x3 and no focal motor deficits Extrem: General: Yes no clubbing, cyanosis or edema Psych: Appearance: grossly normal Objective Labs and Meds 08/15/23 03:15 08/15/23 03:15 Lab results: Laboratory Results - last 24 hr 08/14/23 08/14/23 08/14/23 11:00 11:35 13:31 WBC RBC Hgb Hct MCV MCH MCHC RDW Plt Count MPV Immature Gran % (Auto) Neut % (Auto) Lymph % (Auto) Mower % (Auto) Eos % (Auto) Baso % (Auto) Lymph # (Auto) Mower # (Auto) Eos # (Auto) Baso # (Auto) Abs Immat Gran (auto) Absolute Neuts (auto) Absolute Nucleated RBC Nucleated RBC % (auto) PT INR aPTT Heparin Protocol Sodium 141 Potassium 3.5 Chloride 103 Carbon Dioxide 28 Anion Gap 14 BUN 21 H Creatinine 1.16 Estim Creat Clear Calc 58.5 Estimated GFR > 60 Random Glucose 165 H Calcium 9.5 Magnesium 2.0 Total Bilirubin 0.5 Direct Bilirubin 0.4 AST 24 ALT 18 Alkaline Phosphatase 65 Total Creatine Kinase 143 Troponin I High Sens 512.2 H* D Total Protein 7.9 Albumin 4.5 Triglycerides 58 Cholesterol 142 LDL Cholesterol, Calc 79 HDL Cholesterol 52 Lipase 17 TSH 1.15 Urine Opiates Screen Not Detected Ur Buprenorphine Scrn Not Detected Ur Oxycodone Screen Not Detected Urine Methadone Screen Not Detected Urine Fentanyl Screen POSITIVE H Ur Barbiturates Screen Not Detected Ur Phencyclidine Scrn Not Detected Ur Amphetamines Screen Not Detected U Benzodiazepines Scrn Not Detected Urine Cocaine Screen Not Detected U Marijuana (THC) Screen Not Detected 08/14/23 08/15/23 08/15/23 18:39 01:30 03:15 WBC 9.2 RBC 4.45 L Hgb 11.6 L Hct 35.6 L MCV 80.0 MCH 26.1 L MCHC 32.6 RDW 16.6 H Plt Count 150 L MPV 11.9 Immature Gran % (Auto) 0.3 Neut % (Auto) 63.6 Lymph % (Auto) 20.3 Mower % (Auto) 11.1 H Eos % (Auto) 4.4 H Baso % (Auto) 0.3 Lymph # (Auto) 1.9 Mower # (Auto) 1.0 Eos # (Auto) 0.4 Baso # (Auto) 0.0 Abs Immat Gran (auto) 0.03 Absolute Neuts (auto) 5.8 Absolute Nucleated RBC 0.000 Nucleated RBC % (auto) 0.0 PT 12.7 INR 1.0 aPTT Heparin Protocol 84.6 H 117.3 H* D 75.9 D Sodium 141 Potassium 3.7 Chloride 103 Carbon Dioxide 29 Anion Gap 13 BUN 23 H Creatinine 1.20 Estim Creat Clear Calc 56.6 Estimated GFR 59 Random Glucose 98 Calcium 8.9 D Magnesium Total Bilirubin Direct Bilirubin AST ALT Alkaline Phosphatase Total Creatine Kinase Troponin I High Sens 653.1 H* Total Protein Albumin Triglycerides Cholesterol LDL Cholesterol, Calc HDL Cholesterol Lipase TSH Urine Opiates Screen Ur Buprenorphine Scrn Ur Oxycodone Screen Urine Methadone Screen Urine Fentanyl Screen Ur Barbiturates Screen Ur Phencyclidine Scrn Ur Amphetamines Screen U Benzodiazepines Scrn Urine Cocaine Screen U Marijuana (THC) Screen 08/15/23 10:28 WBC RBC Hgb Hct MCV MCH MCHC RDW Plt Count MPV Immature Gran % (Auto) Neut % (Auto) Lymph % (Auto) Mower % (Auto) Eos % (Auto) Baso % (Auto) Lymph # (Auto) Mower # (Auto) Eos # (Auto) Baso # (Auto) Abs Immat Gran (auto) Absolute Neuts (auto) Absolute Nucleated RBC Nucleated RBC % (auto) PT INR aPTT Heparin Protocol 61.5 Sodium Potassium Chloride Carbon Dioxide Anion Gap BUN Creatinine Estim Creat Clear Calc Estimated GFR Random Glucose Calcium Magnesium Total Bilirubin Direct Bilirubin AST ALT Alkaline Phosphatase Total Creatine Kinase Troponin I High Sens Total Protein Albumin Triglycerides Cholesterol LDL Cholesterol, Calc HDL Cholesterol Lipase TSH Urine Opiates Screen Ur Buprenorphine Scrn Ur Oxycodone Screen Urine Methadone Screen Urine Fentanyl Screen Ur Barbiturates Screen Ur Phencyclidine Scrn Ur Amphetamines Screen U Benzodiazepines Scrn Urine Cocaine Screen U Marijuana (THC) Screen EKG shows atrial fibrillation with rapid ventricular response with nonspecific ST T wave changes Imaging Radiologist's impression: Impressions Chest X-Ray 08/14/23 10:29 IMPRESSION: Streaky bibasilar opacities may represent atelectasis, but an infectious/inflammatory process should also be considered. Possible trace left pleural effusion. This study was presented today, August 14, 2023, for interpretation. Stat results provided at this time as requested by referring provider. Head CT 08/14/23 10:35 IMPRESSION: * No acute intracranial pathology. * Mild mucosal thickening in some of the ethmoid air cells. Assessment and Plan (1) Atrial fibrillation with rapid ventricular response: Status: Acute Atrial fibrillation rapid ventricular response most likely related to acute medical emergency with hypoxemia and/or overdose causing catecholamine surge. This was transient and responded well to rate control and converted back to sinus rhythm. He has no prior history of atrial fibrillation. At this point time given transient nature of atrial fibrillation does not require long-term oral anticoagulation but will require workup as outpatient with event monitor to assess if he has any episodes of atrial fibrillation without acute medical issues. Continue metoprolol therapy. Can start aspirin therapy. Avoidance of stimulants was discussed. Avoidance of drug use was discussed in details. (2) NSTEMI (non-ST elevated myocardial infarction): Status: Acute NSTEMI probably related to hypoxemic event along with atrial fibrillation rapid ventricular response. Underlying obstructive coronary artery disease can not be ruled out. Need echocardiogram to evaluate LV systolic function wall motion abnormality. Will also suggest a inpatient vasodilating myocardial perfusion imaging. Complete trending of the troponins to see if there is a down trend prior to performing a stress test. Would prescribe metoprolol, aspirin and statins. IV heparin can be stopped after 48 hours. Will follow with you Procedures Date of Service Date of Service: 08/15/23
--- NOTE | 2023-08-15 11:40 | HO.PM.IMPN ---
Subjective Subjective Date of Service: 08/15/23 Interval History: Feeling better, no more chest pain Physical Exam Vital Signs: Vital Signs: Last Vital Signs Temp 97.8 F 08/15/23 11:33 Pulse 74 08/15/23 11:33 Resp 19 08/15/23 11:33 BP 101/53 L 08/15/23 11:33 Pulse Ox 94 08/15/23 11:33 O2 Del Method Room Air 08/15/23 11:33 BMI result Body Mass Index 26.3 Const: General: cooperative, comfortable, no acute distress, alert, awake and Physically active Nutritional Appearance: average body habitus Orientation/consciousness: patient oriented x3 Limitations: no limitations HEENT: Head: Yes normocephalic and Yes atraumatic Neck: Neck: Yes trachea midline, Yes supple and Yes no JVD Resp: Effort & Inspection: normal respiratory effort Auscultation: other (Coarse breath sounds at both bases) Cardio: Jugular venous distension: no JVD Palpation: normal PMI Rate: regular rate Rhythm: regular rhythm Heart sounds: S1 normal heart sound present, S2 normal heart sound present, no click, no gallops, no murmurs and no rubs GI: Auscultation: normal bowel sounds Skin: General skin exam: no rashes or lesions noted Neuro: General: patient oriented x3 and no focal motor deficits Extrem: General: Yes no clubbing, cyanosis or edema Psych: Appearance: grossly normal Objective Data Active Medications Acetaminophen (Acetaminophen 325 Mg Tablet) 650 mg PO Q6H PRN PRN Reason: Pain, Mild (Pain Scale 1-3) Aspirin (Aspirin Enteric Coated 81 Mg Tablet.) 81 mg PO DAILY [facility] Last Admin: 08/15/23 08:43 Dose: 81 mg Documented By: MARCY Atorvastatin Calcium (Atorvastatin Calcium 40 Mg Tablet) 40 mg PO BEDTIME [facility] Furosemide (Furosemide 20 Mg/2 Ml Vial) 20 mg IVPUSH DAILY [facility]; Protocol Last Admin: 08/15/23 08:24 Dose: Not Given Documented By: MARCY Non-Admin Reason: Physician Held Med Heparin Sodium (Porcine) (Heparin Sodium,Porcine 5,000 Unit/Ml Vial) 3,300 unit 40 unit/kg (3300 unit) IVPUSH PROTOCOL BOLUS PRN; Protocol PRN Reason: 40 unit/kg - Heparin Protocol Heparin Sodium (Porcine) (Heparin Sodium,Porcine 5,000 Unit/Ml Vial) 6,600 unit 80 unit/kg (6600 unit) IVPUSH PROTOCOL BOLUS PRN; Protocol PRN Reason: 80 unit/kg - Heparin Protocol Diltiazem HCl 125 mg/ Sodium (Chloride) 125 mls @ 0 mls/hr IVCONT .Q0M [facility]; Protocol Last Titration: 08/14/23 18:07 Dose: 0 mg/hr, 0 mls/hr Documented By: EUNICE Heparin Sodium/Sodium Chloride (Heparin Sodium,Porcine/1/2ns) 25,000 unit in 250 mls @ 0 mls/hr IVCONT .Q0M [facility]; Protocol Last Titration: 08/15/23 10:58 Dose: 6 units/kg/hr, 4.98 mls/hr Documented By: MARCY Co-signed By: BERNARDINO Levothyroxine Sodium (Levothyroxine Sodium 75 Mcg Tablet) 75 mcg PO DAILY@0600 [facility] Last Admin: 08/15/23 11:15 Dose: 75 mcg Documented By: MARCY Magnesium Hydroxide (Milk Of Magnesia 30 Ml Oral.Susp) 30 ml PO DAILY PRN PRN Reason: Constipation Metoprolol Tartrate (Metoprolol Tartrate 25 Mg Tablet) 25 mg PO BID [facility]; Protocol Last Admin: 08/15/23 08:43 Dose: 25 mg Documented By: MARCY Ondansetron HCl (Ondansetron Hcl 4 Mg/2 Ml Vial) 4 mg IVPUSH Q8H PRN PRN Reason: Nausea and Vomiting Sodium Chloride (0.9 % Sodium Chloride Flush 3 Ml Syringe) 3 ml IVFLUSH QSHIFT [facility] Last Admin: 08/15/23 08:44 Dose: Not Given Documented By: MARCY Non-Admin Reason: IV Running Labs 08/15/23 03:15 08/15/23 03:15 Labs: Laboratory Results - last 24 hr 08/14/23 08/14/23 08/14/23 11:00 11:35 13:31 MCV MCH MCHC RDW Plt Count MPV Immature Gran % (Auto) Neut % (Auto) Lymph % (Auto) [place] % (Auto) Eos % (Auto) Baso % (Auto) Lymph # (Auto) [place] # (Auto) Eos # (Auto) Baso # (Auto) Abs Immat Gran (auto) Absolute Neuts (auto) Absolute Nucleated RBC Nucleated RBC % (auto) PT INR aPTT Heparin Protocol Anion Gap 14 Estim Creat Clear Calc 58.5 Estimated GFR > 60 Random Glucose 165 H Calcium 9.5 Magnesium 2.0 Total Bilirubin 0.5 Direct Bilirubin 0.4 AST 24 ALT 18 Alkaline Phosphatase 65 Total Creatine Kinase 143 Troponin I High Sens 512.2 H* D Total Protein 7.9 Albumin 4.5 Triglycerides 58 Cholesterol 142 LDL Cholesterol, Calc 79 HDL Cholesterol 52 Lipase 17 TSH 1.15 Urine Opiates Screen Not Detected Ur Buprenorphine Scrn Not Detected Ur Oxycodone Screen Not Detected Urine Methadone Screen Not Detected Urine Fentanyl Screen POSITIVE H Ur Barbiturates Screen Not Detected Ur Phencyclidine Scrn Not Detected Ur Amphetamines Screen Not Detected U Benzodiazepines Scrn Not Detected Urine Cocaine Screen Not Detected U Marijuana (THC) Screen Not Detected 08/14/23 08/15/23 08/15/23 18:39 01:30 03:15 MCV 80.0 MCH 26.1 L MCHC 32.6 RDW 16.6 H Plt Count 150 L MPV 11.9 Immature Gran % (Auto) 0.3 Neut % (Auto) 63.6 Lymph % (Auto) 20.3 [place] % (Auto) 11.1 H Eos % (Auto) 4.4 H Baso % (Auto) 0.3 Lymph # (Auto) 1.9 [place] # (Auto) 1.0 Eos # (Auto) 0.4 Baso # (Auto) 0.0 Abs Immat Gran (auto) 0.03 Absolute Neuts (auto) 5.8 Absolute Nucleated RBC 0.000 Nucleated RBC % (auto) 0.0 PT 12.7 INR 1.0 aPTT Heparin Protocol 84.6 H 117.3 H* D 75.9 D Anion Gap 13 Estim Creat Clear Calc 56.6 Estimated GFR 59 Random Glucose 98 Calcium 8.9 D Magnesium Total Bilirubin Direct Bilirubin AST ALT Alkaline Phosphatase Total Creatine Kinase Troponin I High Sens 653.1 H* Total Protein Albumin Triglycerides Cholesterol LDL Cholesterol, Calc HDL Cholesterol Lipase TSH Urine Opiates Screen Ur Buprenorphine Scrn Ur Oxycodone Screen Urine Methadone Screen Urine Fentanyl Screen Ur Barbiturates Screen Ur Phencyclidine Scrn Ur Amphetamines Screen U Benzodiazepines Scrn Urine Cocaine Screen U Marijuana (THC) Screen 08/15/23 10:28 MCV MCH MCHC RDW Plt Count MPV Immature Gran % (Auto) Neut % (Auto) Lymph % (Auto) [place] % (Auto) Eos % (Auto) Baso % (Auto) Lymph # (Auto) [place] # (Auto) Eos # (Auto) Baso # (Auto) Abs Immat Gran (auto) Absolute Neuts (auto) Absolute Nucleated RBC Nucleated RBC % (auto) PT INR aPTT Heparin Protocol 61.5 Anion Gap Estim Creat Clear Calc Estimated GFR Random Glucose Calcium Magnesium Total Bilirubin Direct Bilirubin AST ALT Alkaline Phosphatase Total Creatine Kinase Troponin I High Sens Total Protein Albumin Triglycerides Cholesterol LDL Cholesterol, Calc HDL Cholesterol Lipase TSH Urine Opiates Screen Ur Buprenorphine Scrn Ur Oxycodone Screen Urine Methadone Screen Urine Fentanyl Screen Ur Barbiturates Screen Ur Phencyclidine Scrn Ur Amphetamines Screen U Benzodiazepines Scrn Urine Cocaine Screen U Marijuana (THC) Screen Assessment and Plan (1) NSTEMI (non-ST elevated myocardial infarction): Status: Acute Plan 73M PMH CKD 3, hepatitis-C, hypothyroid, hypertension, opiate use disorder, presented with altered mental status, found to have AFib and elevated troponins Acute toxic metabolic encephalopathy Likely due to accidental opiate overdose Resolved New onset atrial fibrillation with rapid ventricular response Continue metoprolol Cardiology appreciated, unlikely require long-term anticoagulation for AFib NSTEMI Follow-up echo, mibi IV heparin, asa, statin Hypertension Continue metoprolol Hypothyroid Synthroid Opiate dependence Methadone DVT prophylaxis on heparin IV Full code reason for continued hospitalization: On IV heparin for NSTEMI Quality Stroke Does the patient have a stroke diagnosis?: No VTE Prior VTE?: No VTE Risk Level:: Medical - moderate - high VTE Device Contraindication: Treatment Not Indicated VTE Drug Contraindication: N/A - Med Ordered
--- NOTE | 2023-08-15 12:27 | MHC.CM.PN ---
IMM 08/15/23 in Portuguese, Pt lives with his , she is his HCP, he will complete form later when she comes in. Pt does not have home health services or DME. Family can transport home at DC. DCP: home with services. CM to follow for DC needs.
[2023-08-15] MEDS: Heparin Sodium,Porcine/1/2NS 25,000 UNIT/250 ML IV.SOLN 4.98 UNIT IVCONT (13:25)
[2023-08-15 18:23] LABS: PTT Heparin Drip 46.3 SEC (53-77.9)
[2023-08-15] MEDS: Heparin Sodium,Porcine 5,000 UNIT/ML VIAL 3300 UNIT IVPUSH (19:14)
[2023-08-15] MEDS: Atorvastatin Calcium 40 MG TABLET PO (20:16)
[2023-08-15 21:07] LABS: Glucose, Whole Blood 110 mg/dL (60-115)
[2023-08-16] VITALS (7 sets, daily range): BP systolic 97–142; BP diastolic 53–82; PULSE 68–82; RESP 16–20; TEMP 36.2–36.8; O2SAT 95–97
--- NOTE | 2023-08-16 | CA_ITS ---
Acquisition Time: 2023-08-16 10:22:59 Total Exercise Time: 00:02:00 Test Indications: Abnormal ECG ELEVATED TROP Medications: SEE EMAR Protocol: LEXISCAN Max HR: 118 BPM 80% of Pred: 147 BPM Max BP: 128/076 mmHG Max Work Load: 1.0 METS Pharmacological stress test with Lexiscan injection, while sitting and kicking his legs, without anginal symptoms, without arrythmia, with normotensive response to injection, with nondiagnostic EKG for ischemia. In recovery he was treated with Aminophylline 75mg IVP to reverse Lexiscan, due to elevated heart rate with improvement in rate back to near baseline. Nuclear images pending. Test reviewed with Dr Del Rio. Referred By: Selena Guadarrama Overread By: SELENA GUADARRAMA
[2023-08-16 01:54] LABS: PTT Heparin Drip 129.6 SEC (53-77.9)
[2023-08-16 03:32] LABS: Hematocrit 38.5 % (42.0-52.0); Hemoglobin 12.8 g/dl (14.0-18.0); Mean Corpuscular HGB Conc 33.2 g/dl (31.0-36.0); Mean Corpuscular Hemoglobin 26.2 pg (27.0-33.0); Mean Corpuscular Volume 78.9 fL (80.0-98.0); Mean Platelet Volume 11.3 fL (9.4-12.4); Platelet Count 146 X10*3/uL (160-400); Red Blood Count 4.88 X10*6/uL (4.60-5.80); Red Cell Distribution Width 16.3 % (11.0-16.0); White Blood Count 7.2 X10*3/uL (4.8-10.8)
[2023-08-16 03:40] LABS: PTT Heparin Drip 84.3 SEC (53-77.9)
[2023-08-16] MEDS: Levothyroxine Sodium 75 MCG TABLET PO (04:51)
[2023-08-16 08:56] LABS: Anion Gap 16 (12-20); Blood Urea Nitrogen 23 mg/dL (9-16); Calcium 9.4 mg/dL (8.4-10.2); Carbon Dioxide 28 mmol/L (22-29); Chloride 103 mmol/L (96-108); Creatinine Clr Calc Pharmacy 66.5; Estimated Glomerular Filt Rate > 60; Glucose Fasting 84 mg/dL (60-99); Sodium 143 mmol/L (135-145)
[2023-08-16] MEDS: Furosemide 20 MG/2 ML VIAL IVPUSH (09:21)
[2023-08-16] MEDS: Metoprolol Tartrate 25 MG TABLET PO ×2 (09:21→20:51)
[2023-08-16] MEDS: Aspirin Enteric Coated 81 MG TABLET.DR PO (09:21)
[2023-08-16] MEDS: 0.9 % Sodium Chloride Flush 3 ML SYRINGE IVFLUSH (09:22)
--- NOTE | 2023-08-16 09:42 | P.PNIM_ITS ---
Subjective Subjective Date of Service: 08/16/23 Interval History: Feeling better, no more chest pain Physical Exam 2 Vital Signs: Vital Signs: Last Vital Signs Temp 97.6 F 08/16/23 08:00 Pulse 75 08/16/23 08:00 Resp 20 08/16/23 08:00 BP 131/72 08/16/23 08:00 Pulse Ox 96 08/16/23 08:00 O2 Del Method Room Air 08/16/23 08:00 BMI result Body Mass Index 26.3 Const: General: cooperative, comfortable, no acute distress, alert, awake and Physically active Nutritional Appearance: average body habitus O rientation/consciousness: patient oriented x3 Limitations: no limitations HEENT: Head: Yes normocephalic and Yes atraumatic Neck: Neck: Yes trachea midline, Yes supple and Yes no JVD Resp: Effort & Inspection: normal respiratory effort Auscultation: other (Coarse breath sounds at both bases) Cardio: Jugular venous distension: no JVD Palpation: normal PMI Rate: r egular rate Rhythm: regular rhythm Heart sounds: S1 normal heart sound present, S2 normal heart sound present, no click, no gallops, no murmurs and no rubs GI: Auscultation: normal bowel sounds Skin: General skin exam: no rashes or lesions noted Neuro: General: patient oriented x3 and no focal motor deficits Extrem: General: Yes no clubbing, cyanosis or edema Psych: Appearance: grossly normal Objective Data Active Medications Acetaminophen (Acetaminophen 325 Mg Tablet) 650 mg PO Q6H PRN PRN Reason: Pain, Mild (Pain Scale 1-3) Aspirin (Aspirin Enteric Coated 81 Mg Tablet.) 81 mg PO DAILY [facility] Last Admin: 08/16/23 09:21 Dose: 81 mg Documented By: JUNE Atorvastatin Calcium (Atorvastatin Calcium 40 Mg Tablet) 40 mg PO BEDTIME [facility] Last Admin: 08/15/23 20:16 Dose: 40 mg Documented By: BARRETT Furosemide (Furosemide 20 Mg/2 Ml Vial) 20 mg IVPUSH DAILY [facility]; Protocol Last Admin: 08/16/23 09:21 Dose: 20 mg Documented By: JUNE Heparin Sodium (Porcine) (Heparin Sodium,Porcine 5,000 Unit/Ml Vial) 3,300 unit 40 unit/kg (3300 unit) IVPUSH PROTOCOL BOLUS PRN; Protocol PRN Reason: 40 unit/kg - Heparin Protocol Last Admin: 08/15/23 19:14 Dose: 3,300 unit Documented By: LORNA Heparin Sodium (Porcine) (Heparin Sodium,Porcine 5,000 Unit/Ml Vial) 6,600 unit 80 unit/kg (6600 unit) IVPUSH PROTOCOL BOLUS PRN; Protocol PRN Reason: 80 unit/kg - Heparin Protocol Diltiazem HCl 125 mg/ Sodium (Chloride) 125 mls @ 0 mls/hr IVCONT .Q0M [facility]; Protocol Last Titration: 08/14/23 18:07 Dose: 0 mg/hr, 0 mls/hr Documented By: EUNICE Heparin Sodium/Sodium Chloride (Heparin Sodium,Porcine/1/2ns) 25,000 unit in 250 mls @ 0 mls/hr IVCONT .Q0M [facility]; Protocol Last Titration: 08/16/23 04:44 Dose: 4 units/kg/hr, 3.32 mls/hr Documented By: BARRETT Co-signed By: GERMAIN Levothyroxine Sodium (Levothyroxine Sodium 75 Mcg Tablet) 75 mcg PO DAILY@0600 [facility] Last Admin: 08/16/23 04:51 Dose: 75 mcg Documented By: BARRETT Magnesium Hydroxide (Milk Of Magnesia 30 Ml Oral.Susp) 30 ml PO DAILY PRN PRN Reason: Constipation Metoprolol Tartrate (Metoprolol Tartrate 25 Mg Tablet) 25 mg PO BID [facility]; Protocol Last Admin: 08/16/23 09:21 Dose: 25 mg Documented By: JUNE Ondansetron HCl (Ondansetron Hcl 4 Mg/2 Ml Vial) 4 mg IVPUSH Q8H PRN PRN Reason: Nausea and Vomiting Sodium Chloride (0.9 % Sodium Chloride Flush 3 Ml Syringe) 3 ml IVFLUSH [facility] Last Admin: 08/16/23 09:22 Dose: 3 ml Documented By: JUNE Labs 08/16/23 03:28 08/16/23 07:41 Labs: Laboratory Results - last 24 hr 08/15/23 08/15/23 08/15/23 10:28 17:20 21:03 MCV MCH MCHC RDW Plt Count MPV Absolute Nucleated RBC Nucleated RBC % (auto) aPTT Heparin Protocol 61.5 46.3 L D Anion Gap Estim Creat Clear Calc Estimated GFR POC Glucose 110 Fasting Glucose Calcium Troponin I High Sens 08/16/23 08/16/23 08/16/23 01:20 03:28 07:41 MCV 78.9 L MCH 26.2 L MCHC 33.2 RDW 16.3 H Plt Count 146 L MPV 11.3 Absolute Nucleated RBC 0.000 Nucleated RBC % (auto) 0.0 aPTT Heparin Protocol 129.6 H* D 84.3 H D Anion Gap 16 Estim Creat Clear Calc 66.5 Estimated GFR > 60 POC Glucose Fasting Glucose 84 Calcium 9.4 Troponin I High Sens 96.0 H D Assessment and Plan (1) NSTEMI (non-ST elevated myocardial infarction): Status: Acute Plan 73M PMH CKD 3, hepatitis-C, hypothyroid, hypertension, opiate use disorder, presented with altered mental status, found to have AFib and elevated troponins Acute toxic metabolic encephalopathy Likely due to accidental opiate overdose Resolved New onset atrial fibrillation with rapid ventricular response Continue metoprolol Cardiology appreciated, unlikely require long-term anticoagulation for AFib NSTEMI Follow-up mibi echo without RWMA IV heparin, asa, statin Hypertension Continue metoprolol Hypothyroid Synthroid Opiate dependence Methadone DVT prophylaxis on heparin IV Full code reason for continued hospitalization: On IV heparin for NSTEMI Quality Stroke Does the patient have a stroke diagnosis?: No VTE Prior VTE?: No VTE Risk Level:: Medical - moderate - high VTE Device Contraindication: Treatment Not Indicated VTE Drug Contraindication: N/A - Med Ordered
--- NOTE | 2023-08-16 11:49 | PM.PNCARD ---
Subjective Subjective Date of Service: 08/16/23 Principal diagnosis: NSTEMI,AF Interval history: Patient with no new cardiac symptoms at this point time. Remains in sinus rhythm. Scheduled to undergo stress testing today. Echocardiogram shows normal LV ejection fraction. Review of Systems Review of Systems Yes all other systems are reviewed and are negative Physical Exam Vital Signs: Last Vital Signs Temp 97.6 F 08/16/23 11:37 Pulse 82 08/16/23 11:37 Resp 20 08/16/23 11:37 BP 119/72 08/16/23 11:37 Pulse Ox 97 08/16/23 11:37 O2 Del Method Room Air 08/16/23 11:37 BMI result Body Mass Index 26.3 Const General: cooperative, comfortable, no acute distress, alert, awake and Physically active Nutritional Appearance: average body habitus Orientation/consciousness: patient oriented x3 Limitations: no limitations HEENT Head: Yes normocephalic and Yes atraumatic Neck Neck: Yes trachea midline, Yes supple and Yes no JVD Resp Effort & Inspection: normal respiratory effort Auscultation: other (Coarse breath sounds at both bases) Cardio Jugular venous distension: no JVD Palpation: normal PMI Rate: regular rate Rhythm: regular rhythm Heart sounds: S1 normal heart sound present, S2 normal heart sound present, no click, no gallops, no murmurs and no rubs GI Auscultation: normal bowel sounds Skin General skin exam: no rashes or lesions noted Neuro General: patient oriented x3 and no focal motor deficits Extrem General: Yes no clubbing, cyanosis or edema Psych Appearance: grossly normal Objective Labs and Meds 08/16/23 03:28 08/16/23 07:41 Lab results: Laboratory Results - last 24 hr 08/15/23 08/15/23 08/16/23 17:20 21:03 01:20 WBC RBC Hgb Hct MCV MCH MCHC RDW Plt Count MPV Absolute Nucleated RBC Nucleated RBC % (auto) aPTT Heparin Protocol 46.3 L D 129.6 H* D Sodium Potassium Chloride Carbon Dioxide Anion Gap BUN Creatinine Estim Creat Clear Calc Estimated GFR POC Glucose 110 Fasting Glucose Calcium Troponin I High Sens 08/16/23 08/16/23 03:28 07:41 WBC 7.2 RBC 4.88 Hgb 12.8 L Hct 38.5 L MCV 78.9 L MCH 26.2 L MCHC 33.2 RDW 16.3 H Plt Count 146 L MPV 11.3 Absolute Nucleated RBC 0.000 Nucleated RBC % (auto) 0.0 aPTT Heparin Protocol 84.3 H D Sodium 143 Potassium 4.0 Chloride 103 Carbon Dioxide 28 Anion Gap 16 BUN 23 H Creatinine 1.02 Estim Creat Clear Calc 66.5 Estimated GFR > 60 POC Glucose Fasting Glucose 84 Calcium 9.4 Troponin I High Sens 96.0 H D Progress Note: A&P Assessment and plan (1) NSTEMI (non-ST elevated myocardial infarction): Status: Acute Assessment and Plan: NSTEMI most likely related to hypoxemic episode related to drug overdose. Myocardial ischemia needs to be ruled out. Undergoing stress testing today. Further treatment based on the finding. Echocardiogram is reassuring with no significant regional wall motion abnormality. Continue aspirin as well as metoprolol and statin therapy. (2) Atrial fibrillation with rapid ventricular response: Status: Acute Assessment and Plan: Atrial fibrillation converted to sinus rhythm. Paroxysmal in nature. Most likely related to acute medical issue. Continue metoprolol therapy. Avoidance of stimulants was discussed. Avoidance of drug use was discussed. Time Spent With Patient Time: Total time managing care of this patient today ____ minutes. Progress Note: Quality Stroke Does the patient have a stroke diagnosis?: No Procedures Date of Service Date of Service: 08/16/23
[2023-08-16 12:09] LABS: PTT Heparin Drip 35.4 SEC (53-77.9)
[2023-08-16] MEDS: Heparin Sodium,Porcine 5,000 UNIT/ML VIAL 6600 UNIT IVPUSH ×2 (13:18→13:24)
[2023-08-16] MEDS: Heparin Sodium,Porcine/1/2NS 25,000 UNIT/250 ML IV.SOLN 3.32 UNIT IVCONT (13:20)
--- NOTE | 2023-08-16 17:22 | P.DS_ITS ---
DS: Providers Provider Date of Service: 08/17/23 Date of admission: 08/14/23 14:40 Primary care physician: Kayla Doyle MD Consults: 08/14/23 14:06 Consult to Cardiology Stat Consulting Provider: [facility] Reason for consultation: elevated troponin Has provider been notified: Yes 08/14/23 14:40 Consult to Cardiology Routine Consulting Provider: [facility] Reason for consultation: new onset afib rvr, nstemi DS: Diagnosis Discharge Diagnosis (1) NSTEMI (non-ST elevated myocardial infarction): Status: Acute (2) Atrial fibrillation with rapid ventricular response: Status: Acute DS: Summary Hospital Course Hospital Course: from initial hpi: 73 year old male with history of ckd stage 3, hepatitis c, hypothyroidism, htn, OUD with history of IVDA presented to the ED earlier today after going unresponsive at home while talking with his . The patient is seen at bedside with a maltese interpretor. The patient reports he went out for a walk this morning and sniffed an unknown substance. He returned home and was talking to his and then does not recall any events. Per the , the patient went unresponsive and called EMS. On EMS arrival, the patient was unrepsonive with pinpoint pupils and was hypoxic in the 80s. He was given 1mg narcan with improvement and brought to the ED for evaluation. On arrival, no hypoxia, 97% on RA. However, tachcyardia in the 130s with stable BP. EKG shows new afib with rvr, rate [address] depressions in anterior leads, no rowdy. The patient is asymptomatic- no lightheadedness, dyspnea, palpitations, chest pain. He has a leukocytosis of 11.5, stable normocytic anemia. Renal function baseline, lytes normal. Initial trop 31.7, repeat 512. TSH 1.15. Utox positive for fentanyl only. CXR shows possible atelectasis vs infectious/inflammatory process and possible trace pleural effusion. Head CT negative for acute intracranial abnormality. IN [facility] ED, given IV dilt push x 2 without improvement and started on dilt drip. Ed discussed case with cardiology recommending metoprolol, heparin and troponin trend. hospital course: patient was admitted for acute toxic encephalopathy due to unintentional drug overdose this was complicated by NSTEMI and new onset afib with rvr. was treated with iv ardizem then beta viktoria. iv heparin, asa, statin. had echo which was unremarkable, and nuclear stress test which was negative. likely type II VA, will be discharged home, afib felt to be lone afib triggered by overdose, will hold off on AC for now. for opiate dependence continued on methaodne, for htn on metoprolol. for hypothryoid, synthroid. patient feeling better will be discharged home Time Attestation Discharge Coordination Time (in mins): 33 Quality: Safe Use of Opioids Does Pt have an Active Cancer Diagnosis on the Problem List?: No Quality: Stroke Does the patient have a stroke diagnosis?: No Physical Exam Vital Signs: Vital Signs: Last Vital Signs Temp 98.1 F 08/16/23 15:05 Pulse 79 08/16/23 15:05 Resp 20 08/16/23 15:05 BP 142/73 H 08/16/23 15:05 Pulse Ox 96 08/16/23 15:05 O2 Del Method Room Air 08/16/23 15:05 BMI result Body Mass Index 26.3 General: AO X 3, no acute distress Resp: CTA bilateral, no accessory muscles used CVS: S1,S2,RRR GI: soft, non tender, non distended Neuro: motor grossly intact, alert Psych: appropriate affect, appropriate insight DS: Data Data Completed and Pending Labs on day of discharge: Laboratory Results - last 24 hr 08/15/23 08/15/23 08/16/23 17:20 21:03 01:20 WBC RBC Hgb Hct MCV MCH MCHC RDW Plt Count MPV Absolute Nucleated RBC Nucleated RBC % (auto) aPTT Heparin Protocol 46.3 L D 129.6 H* D Sodium Potassium Chloride Carbon Dioxide Anion Gap BUN Creatinine Estim Creat Clear Calc Estimated GFR POC Glucose 110 Fasting Glucose Calcium Troponin I High Sens 08/16/23 08/16/23 08/16/23 03:28 07:41 11:47 WBC 7.2 RBC 4.88 Hgb 12.8 L Hct 38.5 L MCV 78.9 L MCH 26.2 L MCHC 33.2 RDW 16.3 H Plt Count 146 L MPV 11.3 Absolute Nucleated RBC 0.000 Nucleated RBC % (auto) 0.0 aPTT Heparin Protocol 84.3 H D 35.4 L D Sodium 143 Potassium 4.0 Chloride 103 Carbon Dioxide 28 Anion Gap 16 BUN 23 H Creatinine 1.02 Estim Creat Clear Calc 66.5 Estimated GFR > 60 POC Glucose Fasting Glucose 84 Calcium 9.4 Troponin I High Sens 96.0 H D Discharge Plan Discharge Anticipated Discharge Date/Time: 08/16/23 17:21 Patient Disposition: Home, Self-Care Discharge Diagnosis: afib, nstemi, od Referrals: Kayla Doyle MD [Primary Care Provider] - 1 Week Discharge Medications: Continued hydrochlorothiazide 12.5 mg Tablet 12.5 mg PO DAILY atorvastatin 40 mg tablet 40 mg PO BEDTIME hydrocortisone 1 % cream 1 appl topical DAILY PRN (Reason: Itching) levothyroxine 75 mcg tablet 75 mcg PO DAILY metoprolol succinate 25 mg tablet extended release 24 hr 25 mg PO DAILY Discharge Orders: Discharge Order (Routine); Ordered 08/16/23 Ordered By: Kt Walker Diet: Advance to usual diet Activity on Discharge: As tolerated Stand Alone Forms: Patient Portal Discharge page Print Language: Khmer Care Plan Goals: avoid overdose Health Concerns: overdose Plan of Treatment: do not take unprescriped drugs Assessment: see zenaida
[2023-08-16 20:33] LABS: PTT Heparin Drip 151.1 SEC (53-77.9)
[2023-08-16] MEDS: Atorvastatin Calcium 40 MG TABLET PO (20:53)
[2023-08-16 21:53] LABS: PTT Heparin Drip 60.4 SEC (53-77.9)
[2023-08-17] VITALS: BP 111/70; PULSE 74; RESP 16; TEMP 36.4; O2SAT 98
[2023-08-17 04:00] VITALS: BP 119/71; PULSE 67; RESP 16; TEMP 36.4; O2SAT 96
[2023-08-17] MEDS: Heparin Sodium,Porcine 5,000 UNIT/ML VIAL 3300 UNIT IVPUSH (05:44)
[2023-08-17] MEDS: Levothyroxine Sodium 75 MCG TABLET PO (05:44)
[2023-08-17 07:48] VITALS: BP 126/74; PULSE 72; RESP 20; TEMP 36.4; O2SAT 96
--- NOTE | 2023-08-17 08:36 | PC.NURSE ---
md Walker placed Dc order late in day, 17:27, Dejan sent tiger text that patient was free to go but could stay till 6/8 if desired. patient elected to stay till 6/8 when given option. heparin drip order still in place at time of dc order.
[2023-08-17 08:41] VITALS: BP 126/74; PULSE 72
[2023-08-17] MEDS: Aspirin Enteric Coated 81 MG TABLET.DR PO (08:41)
[2023-08-17] MEDS: Furosemide 20 MG/2 ML VIAL IVPUSH (08:41)
[2023-08-17] MEDS: Metoprolol Tartrate 25 MG TABLET PO (08:41)
[2023-08-17] MEDS: 0.9 % Sodium Chloride Flush 3 ML SYRINGE IVFLUSH (08:46)
--- NOTE | 2023-08-17 12:43 | MHC.CM.PN ---
Pt has medically cleared for DC, he will go home via private transport, self care.
== END 2023-08-17 10:44 | disposition home or self-care (01) | DRG 917 ==
LOC: HO.ED 14:12 → HO.EDOVER 14:48 → HO.IMC 22:43
PROVIDERS: Emergency Medicine; Student in an Organized Health Care Education/Training Program; Admitting Provider Physician Assistant; Emergency Provider Emergency Medicine; PCP General Practice; Visit Provider Internal Medicine
DX: T40.601A Poisoning by unspecified narcotics, accidental (unintentional), initial encounter (principal); G92.8 Other toxic encephalopathy; I21.A1 Myocardial infarction type 2; F11.20 Opioid dependence, uncomplicated; I48.91 Unspecified atrial fibrillation; E03.9 Hypothyroidism, unspecified; I25.10 Atherosclerotic heart disease of native coronary artery without angina pectoris; I12.9 Hypertensive chronic kidney disease with stage 1 through stage 4 chronic kidney disease, or unspecified chronic kidney disease; N18.30 Chronic kidney disease, stage 3 unspecified; Z79.890 Hormone replacement therapy; Z79.899 Other long term (current) drug therapy
CPT/HCPCS: 36415; 70450; 71045; 78452; 80048; 80061; 80076; 80307; 82550; 82947; 83690; 83735; 83880; 84443; 84484; 85025; 85027; 85610; 85730; 93005; 93017; 93306; 99285; A9500; J0280; J1200; J1644; J1940; J2405; J2785

== ENCOUNTER → 2023-08-14 09:39 | Outpatient (BNV) | payer OTHER, SELFPAY | PROVIDERS: Emergency Provider Emergency Medicine; PCP General Practice; Visit Provider Internal Medicine Cardiovascular Disease | DX: I48.91 Unspecified atrial fibrillation (principal) | CPT/HCPCS: 93010 ==

== ENCOUNTER 2023-08-14 14:40 | Outpatient (BNV) | payer OTHER, SELFPAY | END 2023-08-16 10:22 | PROVIDERS: Admitting Provider Physician Assistant; Emergency Provider Emergency Medicine; PCP General Practice; Visit Provider Nurse Practitioner Family | DX: R94.31 Abnormal electrocardiogram [ECG] [EKG] (principal) | CPT/HCPCS: 93016; 93018 ==

== ENCOUNTER 2023-08-14 14:40 | Outpatient (BNV) | payer OTHER, SELFPAY | END 2023-08-15 07:00 | PROVIDERS: Admitting Provider Physician Assistant; Emergency Provider Emergency Medicine; PCP General Practice; Visit Provider Internal Medicine Cardiovascular Disease | DX: I36.1 Nonrheumatic tricuspid (valve) insufficiency (principal); I48.91 Unspecified atrial fibrillation; I21.4 Non-ST elevation (NSTEMI) myocardial infarction | CPT/HCPCS: 78452; 93306 ==

== ENCOUNTER → 2023-08-14 14:40 | Outpatient (BNV) | payer OTHER, SELFPAY | PROVIDERS: Admitting Provider Physician Assistant; Emergency Provider Emergency Medicine; PCP General Practice; Visit Provider Internal Medicine Cardiovascular Disease | DX: I21.4 Non-ST elevation (NSTEMI) myocardial infarction (principal); I48.91 Unspecified atrial fibrillation | CPT/HCPCS: 99222; 99233 ==

== ENCOUNTER → 2023-08-14 14:40 | Outpatient (BNV) | payer OTHER, SELFPAY | PROVIDERS: Admitting Provider Physician Assistant; Emergency Provider Emergency Medicine; PCP General Practice; Visit Provider Physician Assistant | DX: I21.4 Non-ST elevation (NSTEMI) myocardial infarction (principal); I48.91 Unspecified atrial fibrillation | CPT/HCPCS: 99223; 99232; 99233; 99239 ==

== ENCOUNTER 2023-08-24 11:19 | Outpatient (AMB) | payer OTHER, SELFPAY ==
[2023-08-24 11:35] VITALS: BP 120/70; PULSE 72; O2SAT 98; BMI 25.9
--- NOTE | 2023-08-24 11:35 | HO.NEPHOV_ITS ---
Vital Signs 08/24/23 11:35 Height 5 ft 10 in Weight 180 lb 6 oz BMI 25.9 BP 120/70 Blood Pressure Location Lt brachial Position Sitting Pulse 72 Pulse Source Pulse Oximeter Pulse Oximetry (%) 98 Oxygen Delivery Method Room Air Intake Visit Reasons: CKD/ 4 MO FU/ LVM Vp Informatics Required: No Accompanied by: Spouse Allergies No Known Allergies [No Known Allergies*] Allergy (Verified 08/24/23 11:37) HPI Comments Details: I had the privilege of seeing Serafin in follow-up of his mild CKD and hypertension. He recently had an OD and was hospitalized. Has history of hepatitis-C antibody positive. He does not have any chest pain, shortness of breath, paroxysmal nocturnal dyspnea, orthopnea, pedal edema, nausea, vomiting, diarrhea, urinary symptoms or orthostasis. He is compliant with his medications. He does not take any nonsteroidal anti-inflammatories. His renal functions have been stable. He feels well. [facility] Medical History (Updated 08/24/23 @ 11:57 by Emil Rivera MD) CKD (chronic kidney disease) stage 3, GFR 30-59 ml/min Hypothyroidism Anemia Insomnia Anxiety Hepatitis C Thyroid disease History of colon polyps HTN (hypertension) Surgical History H/O umbilical hernia repair H/O colonoscopy Social History Alcohol intake: current Alcohol intake frequency: holidays/special occasions only Patient Tobacco Use Status: Never used Tobacco Substance Use Type: Other service: No Physical Exam Vital Signs: Last Vital Signs Pulse 72 08/24/23 11:35 BP 120/70 08/24/23 11:35 Pulse Ox 98 08/24/23 11:35 Oxygen Delivery Method Room Air 08/24/23 11:35 BMI result Body Mass Index 25.9 Results Reviewed Nephrology Results: Hgb 12.8 g/dl (14.0-18.0) L 08/16/23 WBC 7.2 X10*3/uL (4.8-10.8) 08/16/23 Plt Count 146 X10*3/uL (160-400) L 08/16/23 Sodium 143 mmol/L (135-145) 08/16/23 Potassium 4.0 mmol/L (3.3-5.1) 08/16/23 Chloride 103 mmol/L (96-108) 08/16/23 Carbon Dioxide 28 mmol/L (22-29) 08/16/23 BUN 23 mg/dL (9-16) H 08/16/23 Creatinine 1.02 mg/dL (0.5-1.4) 08/16/23 Calcium 9.4 mg/dL (8.4-10.2) 08/16/23 Urine Protein Negative mg/dL (Neg-Trace) 08/07/23 Urine Creatinine 347.15 mg/dL 08/07/23 Protein/Creatinin Ratio 0.09 (<0.2) 08/07/23 Assessment & Plan Assessment & Plan (1) HTN (hypertension): Code(s): I10 - Essential (primary) hypertension Category: Medical Qualifiers: Hypertension type: primary hypertension Qualified Code(s): I10 - E ssential (primary) hypertension (2) CKD (chronic kidney disease) stage 3, GFR 30-59 ml/min: Code(s): N18.30 - Chronic kidney disease, stage 3 unspecified Category: Medical Qualifiers: Chronic kidney disease stage 3 subtype: stage 3a (GFR 45-59) Qualified Code(s): N18.31 - Chronic kidney disease, stage 3a Vicente Betancourt has history of CKD stage 3 and longstanding hypertension. His renal functions are quite stable. His blood pressure is at goal. His volume status is optimal. His cryoglobulin was negative in the past. He avoids nonsteroidal anti-inflammatories and maintain good hydration. I did not make any medication changes today. Follow-up blood work ordered. Answered all questions. Follow- up appointment given. Orders: Orders Protein Creatinine Ratio, Ur Today I10 - Essential (primary) hypertension, N18.31 - Chronic kidney disease, stage 3a Electrolytes Today I10 - Essential (primary) hypertension, N18.31 - Chronic kidney disease, stage 3a Creatinine Today I10 - Essential (primary) hypertension, N18.31 - Chronic kidney disease, stage 3a Blood Urea Nitrogen Today I10 - Essential (primary) hypertension, N18.31 - Chronic kidney disease, stage 3a Coding Level of Care Code Est Pt Level 4 (74396) Diagnoses Primary hypertension I10 Hypertension type: primary hypertension Stage 3a chronic kidney disease N18.31 Chronic kidney disease stage 3 subtype: stage 3a (GFR 45-59)
== END 2023-08-24 12:01 | disposition home or self-care (01) ==
PROVIDERS: PCP General Practice; Visit Provider Internal Medicine Nephrology
DX: I10 Essential (primary) hypertension (principal); N18.31 Chronic kidney disease, stage 3a
CPT/HCPCS: 99214

== ENCOUNTER → 2023-08-24 11:19 | Outpatient (BNVA) | payer OTHER, SELFPAY | PROVIDERS: PCP General Practice; Visit Provider Internal Medicine Nephrology | DX: I12.9 Hypertensive chronic kidney disease with stage 1 through stage 4 chronic kidney disease, or unspecified chronic kidney disease (principal); N18.31 Chronic kidney disease, stage 3a | CPT/HCPCS: 99212 ==

== ENCOUNTER 2023-09-14 10:31 | Outpatient (REF) | payer OTHER, SELFPAY ==
[2023-09-14 12:04] LABS: Alanine Aminotransferase 16 U/L (0-40); Albumin Level 4.5 g/dL (3.5-5.0); Alkaline Phosphatase 78 U/L (39-117); Anion Gap 12 (12-20); Aspartate Amino Transferase 20 U/L (5-37); Blood Urea Nitrogen 18 mg/dL (9-16); Calcium 9.9 mg/dL (8.4-10.2); Carbon Dioxide 30 mmol/L (22-29); Chloride 103 mmol/L (96-108); Cholesterol 122 mg/dL (<200); Estimated Glomerular Filt Rate > 60; Glucose Random 97 mg/dL (60-115); HDL Cholesterol 48 mg/dL (>40); LDL Cholesterol Calculated 57 mg/dL (<100); Potassium 3.6 mmol/L (3.3-5.1); Sodium 141 mmol/L (135-145); Total Protein 7.9 g/dL (6.5-8.0); Triglycerides 85 mg/dL (<150)
[2023-09-14 12:14] LABS: Bilirubin Total 0.7 mg/dL (0.0-1.0)
[2023-09-14 12:32] LABS: Folate 12.1 ng/mL (> or = 4.0); Vitamin B12 405 pg/mL (200-900)
[2023-09-17 07:58] LABS: RPR Rapid Plasma Reagin NON-REACTIVE (NON-REACTIVE)
== END 2023-09-14 10:32 | disposition home or self-care (01) ==
LOC: HO.HHCL 10:31
PROVIDERS: Visit Provider General Practice
DX: R20.2 Paresthesia of skin (principal); I12.9 Hypertensive chronic kidney disease with stage 1 through stage 4 chronic kidney disease, or unspecified chronic kidney disease; N18.31 Chronic kidney disease, stage 3a
CPT/HCPCS: 36415; 80053; 80061; 82607; 82746; 86592

== ENCOUNTER 2023-12-20 06:14 | Outpatient (REF) | payer OTHER, SELFPAY ==
[2023-12-20 06:54] LABS: Anion Gap 18 (12-20); Blood Urea Nitrogen 20 mg/dL (9-16); Carbon Dioxide 19 mmol/L (22-29); Chloride 105 mmol/L (96-108); Estimated Glomerular Filt Rate 54; Potassium 4.5 mmol/L (3.3-5.1); Sodium 137 mmol/L (135-145)
[2023-12-20 07:53] LABS: Creatinine Urine 108.47 mg/dL; Total Protein Urine Random < 7 mg/dL (<12)
== END 2023-12-20 06:15 | disposition home or self-care (01) ==
LOC: HO.LAB 06:14
PROVIDERS: PCP General Practice; Visit Provider Internal Medicine Nephrology
DX: I12.9 Hypertensive chronic kidney disease with stage 1 through stage 4 chronic kidney disease, or unspecified chronic kidney disease (principal); N18.31 Chronic kidney disease, stage 3a
CPT/HCPCS: 36415; 80051; 82565; 82570; 84156; 84520

== ENCOUNTER 2023-12-26 10:43 | Outpatient (AMB) | payer OTHER, SELFPAY ==
[2023-12-26 10:46] VITALS: BP 130/70; PULSE 90; O2SAT 96; BMI 26.9
--- NOTE | 2023-12-26 10:46 | HO.NEPHOV_ITS ---
Vital Signs 12/26/23 10:46 Height 5 ft 10 in Weight 187 lb 8 oz BMI 26.9 BP 130/70 Blood Pressure Location Lt brachial Position Sitting Pulse 90 Pulse Source Pulse Oximeter Pulse Oximetry (%) 96 Oxygen Delivery Method Room Air Intake Visit Reasons: 4 mon follow up/ Conf Flight Operations Engineer Required: No Flight Operations Engineer Services: Flight Operations Engineer Offered & Declined Accompanied by: Spouse Allergies No Known Allergies [No Known Allergies*] Allergy (Verified 12/26/23 10:49) HPI Comments Details: I had the privilege of seeing Serafin in follow-up of his mild CKD and hypertension. Has history of hepatitis-C antibody positive. He does not have any chest pain, shortness of breath, paroxysmal nocturnal dyspnea, orthopnea, pedal edema, nausea, vomiting, diarrhea, urinary symptoms or orthostasis. He is compliant with his medications. He does not take any nonsteroidal anti- inflammatories. His renal functions have been stable. He feels well. [facility] Medical History (Updated 08/25/23 @ 00:02 by Lynn Mariscal) CKD (chronic kidney disease) stage 3, GFR 30-59 ml/min Hypothyroidism Anemia Insomnia Anxiety Hepatitis C Thyroid disease History of colon polyps HTN (hypertension) Surgical History H/O umbilical hernia repair H/O colonoscopy Social History Alcohol intake: current Alcohol intake frequency: holidays/special occasions only Patient Tobacco Use Status: Never used Tobacco Substance Use Type: Other service: No Review of Systems Const All systems reviewed & are unremarkable except as noted in HPI and below Physical Exam Vital Signs: Last Vital Signs Pulse 90 12/26/23 10:46 BP 130/70 12/26/23 10:46 Pulse Ox 96 12/26/23 10:46 Oxygen Delivery Method Room Air 12/26/23 10:46 BMI result Body Mass Index 26.9 Const General: comfortable and no acute distress Orientation/consciousness: patient oriented x3 HEENT Head: Yes normocephalic Mouth: Normal oral and palatal mucosa present Eyes EOM: EOMs intact bilaterally Neck Neck: Yes supple Resp Auscultation: clear to auscultation bilaterally Cardio Jugular venous distension: no JVD Rate: regular rate GI Palpation (GI): Soft to palpation Auscultation: normal bowel sounds General: Yes no CVA tenderness Back/Spine/Pelvis Back: no CVA tenderness Skin General skin exam: no rashes or lesions noted Neuro General: patient oriented x3 and moves all extremities Extrem General: Yes no pedal edema Results Reviewed Nephrology Results: Hgb 12.8 g/dl (14.0-18.0) L 08/16/23 WBC 7.2 X10*3/uL (4.8-10.8) 08/16/23 Plt Count 146 X10*3/uL (160-400) L 08/16/23 Sodium 137 mmol/L (135-145) 12/20/23 Potassium 4.5 mmol/L (3.3-5.1) 12/20/23 Chloride 105 mmol/L (96-108) 12/20/23 Carbon Dioxide 19 mmol/L (22-29) L 12/20/23 BUN 20 mg/dL (9-16) H 12/20/23 Creatinine 1.30 mg/dL (0.5-1.4) 12/20/23 Calcium 9.9 mg/dL (8.4-10.2) 09/14/23 Urine Protein Negative mg/dL (Neg-Trace) 08/07/23 Urine Creatinine 108.47 mg/dL 12/20/23 Protein/Creatinin Ratio TNP 12/20/23 Assessment & Plan Assessment & Plan (1) CKD (chronic kidney disease) stage 3, GFR 30-59 ml/min: Code(s): N18.30 - Chronic kidney disease, stage 3 unspecified Category: Medical Qualifiers: Chronic kidney disease stage 3 subtype: stage 3a (GFR 45-59) Qualified Code(s): N18.31 - Chronic kidney disease, stage 3a (2) HTN (hypertension): Code(s): I10 - Essential (primary) hypertension Category: Medical Qualifiers: Hypertension type: primary hypertension Qualified Code(s): I10 - Essential (primary) hypertension Plan Serafin has history of CKD stage 3 and longstanding hypertension. His renal functions are quite stable. His blood pressure is at goal. His volume status is optimal. His cryoglobulin was negative in the past. He avoids nonsteroidal anti-inflammatories and maintain good hydration. I did not make any medication changes today. Follow-up blood work ordered. Answered all questions. Follow- up appointment given. Orders: Orders Creatinine 6 Months I10 - Essential (primary) hypertension, N18.31 - Chronic kidney disease, stage 3a Blood Urea Nitrogen 6 Months I10 - Essential (primary) hypertension, N18.31 - Chronic kidney disease, stage 3a Electrolytes 6 Months I10 - Essential (primary) hypertension, N18.31 - Chronic kidney disease, stage 3a Coding Level of Care Code Est Pt Level 4 (66495) Diagnoses Stage 3a chronic kidney disease N18.31 Chronic kidney disease stage 3 subtype: stage 3a (GFR 45-59) Primary hypertension I10 Hypertension type: primary hypertension
== END 2023-12-26 10:58 | disposition home or self-care (01) ==
PROVIDERS: PCP General Practice; Visit Provider Internal Medicine Nephrology
DX: I12.9 Hypertensive chronic kidney disease with stage 1 through stage 4 chronic kidney disease, or unspecified chronic kidney disease (principal); N18.31 Chronic kidney disease, stage 3a
CPT/HCPCS: 99214

== ENCOUNTER → 2023-12-26 10:43 | Outpatient (BNVA) | payer OTHER, SELFPAY | PROVIDERS: PCP General Practice; Visit Provider Internal Medicine Nephrology | DX: I12.9 Hypertensive chronic kidney disease with stage 1 through stage 4 chronic kidney disease, or unspecified chronic kidney disease (principal); N18.31 Chronic kidney disease, stage 3a | CPT/HCPCS: 99212 ==

== ENCOUNTER 2024-02-13 08:07 | Outpatient (REF) | payer OTHER, SELFPAY ==
[2024-02-13 11:17] LABS: MANUAL DIFF FLAG NO
[2024-02-13 11:21] LABS: Basophils Percent Auto 0.6 % (0-2); Eosinophils Absolute Auto 0.4 X10*3/uL (0.0-0.4); Eosinophils Percent Auto 5.9 % (0-4); Hematocrit 42.5 % (42.0-52.0); Hemoglobin 13.9 g/dl (14.0-18.0); Imm Gran Abs Auto 0.02 X10*3/uL (0.00-0.03); Imm Gran Pct Auto 0.3 % (0.0-0.4); Lymphocytes Absolute Auto 1.8 X10*3/uL (1.2-4.9); Lymphocytes Percent Auto 24.2 % (20-40); Mean Corpuscular HGB Conc 32.7 g/dl (31.0-36.0); Mean Corpuscular Hemoglobin 26.5 pg (27.0-33.0); Mean Platelet Volume 11.7 fL (9.4-12.4); Monocytes Absolute Auto 0.8 X10*3/uL (0.1-1.2); Monocytes Percent Auto 10.4 % (2-11); Neutrophils Absolute Auto 4.3 x10*3/uL (2.0-8.3); Neutrophils Percent Auto 58.6 % (45-73); Platelet Count 155 X10*3/uL (160-400); Red Blood Count 5.25 X10*6/uL (4.60-5.80); Red Cell Distribution Width 15.9 % (11.0-16.0); White Blood Count 7.2 X10*3/uL (4.8-10.8)
[2024-02-13 11:35] LABS: Anion Gap 11 (12-20); Blood Urea Nitrogen 9 mg/dL (9-16); Carbon Dioxide 32 mmol/L (22-29); Chloride 101 mmol/L (96-108); Estimated Glomerular Filt Rate > 60; Potassium 3.8 mmol/L (3.3-5.1); Sodium 140 mmol/L (135-145)
[2024-02-16 14:43] LABS: TS Negative Control Passed; TS Panel A 1; TS Panel B 2; TS Positive Control Passed; TSpotTB Negative (Negative)
== END 2024-02-13 08:08 | disposition home or self-care (01) ==
LOC: HO.HHCL 08:07
PROVIDERS: General Practice; Visit Provider Internal Medicine Nephrology
DX: Z00.00 Encounter for general adult medical examination without abnormal findings (principal); I10 Essential (primary) hypertension; N18.31 Chronic kidney disease, stage 3a; R61 Generalized hyperhidrosis
CPT/HCPCS: 36415; 80051; 82565; 84520; 85025; 86481

== ENCOUNTER 2024-06-25 06:10 | Outpatient (REF) | payer OTHER, SELFPAY ==
--- OUTSIDE RECORDS SUMMARY | 2024-06-25 06:13 | XMS_ITS | Encounter Summary ---
Author Organization [employer] Address [address] [place] [address] Care Team Providers Care Bomb Loader Name Role Phone Kayla Doyle MD Primary Care Provider [phone] Encounter Details Date Type Department Care Team ([facility] st Contact Info) Description 09/20/2023 Orders Only [facility] [address] [place], [place] [phone] Kayla Doyle MD [address], [place] [phone] Social History Tobacco Use Types Packs/Day Years Used Date Smoking Tobacco: Never Smokeless Tobacco: Never Alcohol Use Standard Drinks/Week Comments Not Currently 0 (1 standard drink = 0.6 oz pur e alcohol) 25 yrs ago Housing Stability Answer Date Recorded What is your housing situation today? I have jeaniealla foreman 12/29/[address] you li ve. Do you have problems with any of the following? None of the above 12/29/2022 Food Insecurity Answer Date Recorded Within the past 12 months, y ou worried that your food would run out before you got money to buy more: Never True 12/29/2022 Within the past 12 months,th e food you bought just didn't last and you didn't have enough money to get more: Never True Transportation Answer Date Recorded In the past 12 months, has l ack of transportation kept you from medical appts, meetings, work or from getting things needed for daily living? Yes, it has kept me from medical appointments or getting medications. 12/19/2022 Utilities Answer Date Recorded In the past 12 months, has t he electric, gas, oil or water company threatened to shut off services in your home? No 12/29/2022 Depression Answer Date Recorded Patient Health Questionnaire-2 Score 0 03/20/2022 Sex and Gender Information Value Date Recorded Sex Assigned at Male 01/09/2022 10:15 AM EDT Legal Sex Male 10:15 AM EDT Gender Identity Male 01/09/2022 10:15 AM EDT Sexual Orientation Straight 01/09/2022 10 :15 AM EDT documented as of this encounter Plan of Treatment Upcoming Encounters Date Type Department Care Team (Late st Contact Info) Description 07/02/2024 9:00 AM EDT Office Visit [facility] [address] [place] [address] Kwaku Yan DDS [address] [place] [address] 08/26/2024 11:00 AM EDT Office Visit [facility] [address] [place] [address] Kayla Doyle MD [address] [place] [address] documented as of this encounter Visit Diagnoses Not on filedocumented in this encounter Care Teams Bomb Loader Relationship Specialty Start Date End Date Kayla Doyle MD [address] [place] [address] PCP - General Family Medicine 11/08/20 documented as of this encounter
--- OUTSIDE RECORDS SUMMARY | 2024-06-25 06:13 | XMS_ITS | Encounter Summary ---
Author Organization [employer] Address [address] [facility] 7[address] [place] [address] Care Team Providers Care Assistant Superintendent Name Role Phone Kayla Doyle MD Primary Care Provider [phone] Encounter Details Date Type Department Care Team ([facility] st Contact Info) Description 07/19/2023 Orders Only [facility] [address] [place] [address] ProviderAlicia MD Social History Tobacco Use Types Packs/Day Years Used Date Smoking Tobacco: Never Smokeless Tobacco: Never Alcohol Use Standard Drinks/Week Comments Not Currently 0 (1 standard drink = 0.6 oz pur e alcohol) 25 yrs ago Housing Stability Answer Date Recorded What is your housing situation today? I have jeanie kellen 12/29/[address] you li [...] Description 07/02/2024 9:00 AM EDT Office Visit [facility] [address] [place] [address] Kwaku Yan DDS [address] [place] [address] 08/26/2024 11:00 AM EDT Office Visit [facility] [address] [place] [address] Kayla Doyle MD [address] [place] [address] Pending Results Name Type Priority Associated Diagnoses Date /Time Basic Metabolic Panel Lab Routine 06/2023 10:40 AM EDT TSH with Reflex to Free T4 Lab Routine 08/14/2023 10:40 AM EDT documented as of this encounter Procedures Procedure Name Priority Date/Time Associated Diagnosis Comments STRESS TEST WITH MYOCARDIAL PERFUSION Routine 08/16/2023 11:40 AM EDT HIGH SENSITIVITY TROPONIN I Routine 08/14/2023 1:31 PM EDT TSH W/REFLEX TO FT4 Routine 08/14/2023 1 1:35 AM EDT MAGNESIUM Routine 08/14/2023 11:35 AM EDT LIPASE Routine 08/14/2023 11:35 AM EDT CREATINE KINASE, TOTAL Routine 08/14/2023 11:35 AM EDT HEPATIC FUNCTION PANEL Routine 08/14/2023 11:35 AM EDT BASIC METABOLIC PANEL Routine 08/14/2023 11:35 AM EDT DRUG MONITOR, PANEL 1, SCREEN, URINE Routine 08/14/2023 11:00 AM EDT TSH W/REFLEX TO FT4 Routine 08/14/2023 1 0:40 AM EDT BASIC METABOLIC PANEL Routine 08/14/2023 10:[address] HEAD WO CONTRAST Routine 08/14/2023 1 0:35 AM EDT XR CHEST 1 VIEW Routine 08/14/2023 10:29 AM EDT B TYPE NATRIURETIC PEPTIDE (BNP) Routine 08/14/2023 10:17 AM EDT HIGH SENSITIVITY TROPONIN I Routine 08/14/2023 9:51 AM EDT CBC WITH AUTO DIFFERENTIAL Routine 08/14/2023 9:51 AM EDT PROTHROMBIN TIME-INR Routine 08/14/2023 9:51 AM EDT CREATININE, SERUM Routine 08/07/2023 6:3 6 AM EDT UREA NITROGEN (BUN) Routine 08/07/2023 6 :36 AM EDT CALCIUM Routine 08/07/2023 6:36 AM EDT ELECTROLYTE PANEL Routine 08/07/2023 6:3 6 AM EDT PROTEIN CREATININE RATIO, URINE Routine 08/07/2023 6:35 AM EDT URINALYSIS WITH REFLEX TO MICROSCOPIC Routine 08/07/2023 6:35 AM EDT HM COLONOSCOPY Routine 03/27/2018 3:26 PM EST documented in this encounter Results * Stress test with myocardial perfusion (08/16/2023 11:40 AM EDT) 08/16/2023 11:4 0 AM EDT Narrative [facility] - 08/16/2023 4:32 PM EDT ? [facility] ?[address] ?[place] [address] ?Nuclear Medicine Report ? Signed ? Patient: Steele,Serafin ?MR#: [id number] ? : 1950 ?Acct:[id number] ? Age/Sex: 73 / M ?ADM Date: 08/14/23 ? Loc: .[facility] ?[id number] ? Attending Dr: Kt Walker MD ? Ordering Physician: Kt Walker MD ?? Date of Service: 08/15/23 ?? Procedure(s): NM cardiolite stress test ?? Accession Number(s): [id number] ? cc: Kayla Doyle; Kt Walker MD ? Myocardial perfusion study ? Indication: ?? NSTEMI Evaluate for myocardial ischemia ? Technique: ? The patient was brought in for a Lexiscan perfusion study on ?? 08/16/2023. Patient performed low-level exercise and was injected 0.4 ?? mg of Lexiscan intravenously. Within a minute of injection, 30 mCi of ?? sestamibi was given intravenously. Images were obtained using the SPECT ?? gamma camera interlaced with the gating device. Images were obtained in ?? supine position. ? Resting perfusion study was performed on 08/15/2023. Patient was ?? administered 30 mCi of sestamibi intravenously at rest. Images were ?? then obtained in supine position. ? Images obtained with and without CT attenuation. Total DLP 84 mGy-cm. ? Images were processed with the software and compared side to side in ?? short axis, horizontal long axis and vertical long axis views. ? Findings: ? The stress perfusion study showed ??non attenuated images show mildly to ?? moderately reduced uptake in the basal wall of the LV myocardium. ?? Remainder of the LV myocardium is normally perfused. Attenuation ?? corrected images show overall normal uptake of radiotracer in all ?? segments of LV myocardium.. The gated study shows normal LV systolic ?? function with calculated LVEF of 67%. LV cavity is normal in size. The ?? gated study shows normal systolic ??wall thickening and contraction of ?? segments. ? Resting study shows no change in perfusion pattern compared to stress ?? perfusion study. Gating at rest reveals normal systolic wall motion ?? with ejection fraction at 62%. ? The findings are consistent with normal myocardial perfusion. ? NM/NM cardiolite stress test ?? Impression: ? 1. ??Myocardial perfusion imaging study shows normal myocardial ?? perfusion ?? 2. ??Gated LVEF is 67% ?? 3. Transient ischemic dilatation not present ? EKG is nondiagnostic for ischemia ? Dictated By: ?Rubio Del Rio MD ? Signed By: ?<Electronically signed by Rubio Del Rio MD in OV> ?08/16/23 1628 ? DD/ 1140 ? TD/TT: ? Didactic Instructor: ? Procedure Note Donkeriter, Image - 08/16/2023 [place] [address] Nuclear Medicine Report Signed Patient: Mel Steele#: [id number] : 1950cct:[id number] Age/Sex: 73 / MADM Date: 08/14/23 Loc: .[facility] [id number]: Kt Walker MD Ordering Physician: Kt Walker MD Date of Service: 08/15/23 Procedure(s): NM cardiolite stress test Accession Number(s): [id number] cc: Kayla Doyle; Kt Walker MD Myocardial perfusion study Indication: NSTEMI Evaluate for myocardial ischemia Technique: The patient was brought in for a Lexiscan perfusion study on 08/16/2023. Patient performed low-level exercise and was injected 0.4 mg of Lexiscan intravenously. Within a minute of injection, 30 mCi of sestamibi was given intravenously. Images were obtained using the SPECT gamma camera interlaced with the gating device. Images were obtained in supine position. Resting perfusion study was performed on 08/15/2023. Patient was administered 30 mCi of sestamibi intravenously at rest. Images were then obtained in supine position. Images obtained with and without CT attenuation. Total DLP 84 mGy-cm. Images were processed with the software and compared side to side in short axis, horizontal long axis and vertical long axis views. Findings: The stress perfusion study showed non attenuated images show mildly to moderately reduced uptake in the basal wall of the LV myocardium. Remainder of the LV myocardium is normally perfused. Attenuation corrected images show overall normal uptake of radiotracer in all segments of LV myocardium.. The gated study shows normal LV systolic function with calculated LVEF of 67%. LV cavity is normal in size. The gated study shows normal systolic wall thickening and contraction of segments. Resting study shows no change in perfusion pattern compared to stress perfusion study. Gating at rest reveals normal systolic wall motion with ejection fraction at 62%. The findings are consistent with normal myocardial perfusion. NM/NM cardiolite stress test Impression: 1. Myocardial perfusion imaging study shows normal myocardial perfusion 2. Gated LVEF is 67% 3. Transient ischemic dilatation not present EKG is nondiagnostic for ischemia Dictated By: Rubio Del Rio MD Signed By: <Electronically signed by Rubio Del Rio MD in OV> 08/16/23 1628 DD/ 1140 TD/TT: Didactic Instructor: [facility] External Provider CV STRE SS PROCEDURES Final Result Performing Organization Address City/[facility]/ZIP Co de Phone Number [facility] [address] [place] [address] * (ABNORMAL) High Sensitivity Troponin I (08/14/2023 1:31 PM EDT) TROPONIN I HIGH SENSITIVITY 512.2(HH) <3.5 - 35.0 ng/L [facility] Comment:Critical value for T ROPONIN: Results called to and readback by: ABIMAEL Person calling: OSITO Date: 08/14/23 Time:1358The [employer] high sensitivity Troponin-I results should beused in conjunction with other diagnostic information suchas ECG, clinical observations and information, and patientsymptoms to aid in the diagnosis of SD. 08/14/2023 1:31 PM EDT 08/14/2023 1:33 PM EDT Generic External Data Provider LAB BLOOD ORDERAB LES Final Result [facility] [address] [place] [phone] [phone] * Creatine Kinase, Total (08/14/2023 11:35 AM EDT) Creatine Kinase Total 143 38 - 174 U/L [facility] 08/14/2023 11:3 5 AM EDT 08/14/2023 11:38 AM EDT Generic External Data Provider LAB BLOOD ORDERAB LES Final Result Performing Organization Address [facility] Co de Phone Number [facility] [address] [place] [phone] * TSH with Reflex to Free T4 (08/14/2023 11:35 AM EDT) TSH reflex Free T4 1.15 0.32 - 4.0 uIU/mL [facility] 08/14/2023 11:3 5 AM EDT 08/14/2023 11:38 AM EDT Generic External Data Provider LAB BLOOD ORDERAB LES Final Result Performing Organization Address [facility] Co de Phone Number [facility] [address] [place] [phone] * Lipase (08/14/2023 11:35 AM EDT) Lipase 17 8 - 78 U/L [facility] 08/14/2023 11:3 5 AM EDT 08/14/2023 11:38 AM EDT Generic External Data Provider LAB BLOOD ORDERAB LES Final Result Performing Organization Address [facility] Co de Phone Number [facility] [address] [place] [phone] * Magnesium (08/14/2023 11:35 AM EDT) Magnesium 2.0 1.6 - 2.6 mg/dL [facility] 08/14/2023 11:3 5 AM EDT 08/14/2023 11:38 AM EDT us Generic External Data Provider LAB BLOOD ORDERAB LES Final Result [facility] [address] [place] [phone] * (ABNORMAL) Basic Metabolic Panel (08/14/2023 11:35 AM EDT) Sodium 141 135 - 145 mmol/L [facility] Potassium 3.5 3.3 - 5.1 mmol/L [facility] Chloride 103 96 - 108 mmol/L [facility] Carbon Dioxide 28 22 - 29 mmol/L [facility] Anion Gap 14 12 - 20 [facility] Urea Nitrogen (BUN) 21(H) 9 - 16 mg/dL [facility] Creatinine, Serum 1.16 0.5 - 1.4 mg/dL [facility] Creatinine Clr Calc Pharmacy 58.5 [facility] Comment:eGFR (calculated fro m the MDRD study equation) and eCrCl(calculated from the Cockcroft-Gault equation) are based ondifferent parameters and may not yield comparable results.If eCrCl result is absurd, please check patient'sheight/weight. Estimated Glomerular Filt Rate >60 [facility] Comment:NOTE: For -Am erican individuals, multiply the result by 1.210.Chronic Kidney Disease: Estimated GFR < 60 mL/min/1.15p4Mssgnd Kidney Disease: Estimated GFR < 15 mL/min/1.73m2 Glucose 165(H) 60 - 115 mg/dL [facility] Calcium 9.5 8.4 - 10.2 mg/dL [facility] 08/14/2023 11:3 5 AM EDT 08/14/2023 11:38 AM EDT us Generic External Data Provider LAB BLOOD ORDERAB LES Final Result Performing Organization Address [facility]/ZIP Co de Phone Number [facility] [address] [place] [phone] * Hepatic Function Panel (08/14/2023 11:35 AM EDT) Bilirubin, Total 0.5 0.0 - 1.0 mg/dL [facility] Bilirubin, Direct 0.4 0.0 - 0.5 mg/dL [facility] Aspartate Amino Transferase 24 5 - 37 U/L [facility] Alanine Aminotransferase 18 0 - 40 U/L [facility] Total Protein 7.9 6.5 - 8.0 g/dL [facility] Albumin Level 4.5 3.5 - 5.0 g/dL [facility] Alkaline Phosphatase 65 39 - 117 U/L [facility] 08/14/2023 11:3 5 AM EDT 08/14/2023 11:38 AM EDT [employer] External Data Provider LAB BLOOD ORDERAB LES Final Result Performing Organization Address [facility] de Phone Number [facility] [address] [place] [phone] * (ABNORMAL) Drug Monitoring, Panel 1, Screen, Urine (08/14/2023 11:00 AM EDT) Pathologist [facility] Opiate Screen Urine Not Detected Not Detect [facility] Comment:Opiate cut-off is 30 0 ng/mL.Positive results are unconfirmed and should not be used fornon-medical purposes. Barbiturates, Urine Not Detected Not Detect [facility] Comment:Barbiturate cut-off is 200 ng/mL.Positive results are unconfirmed and should not be used fornon-medical purposes. Phencyclidine Screen Urine Not Detected Not Detect [facility] Comment:Phencyclidine cut-of f is 25 ng/mL.Positive results are unconfirmed and should not be used fornon-medical purposes. Amphetamine Screen Urine Not Detected Not Detect [facility] Comment:Amphetamine cut-off is 1000 ng/mL.Positive results are unconfirmed and should not be used fornon-medical purposes. Benzodiazepines Screen Urine Not Detected Not Detect [facility] Comment:Benzodiazepine cut-o ff is 200 ng/mL.Positive results are unconfirmed and should not be used fornon-medical purposes. Cocaine Screen Urine Not Detected Not Detect [facility] Comment:Cocaine cut-off is 3 00 ng/mL.Positive results are unconfirmed and should not be used fornon-medical purposes. Cannabinoid Screen Urine Not Detected Not Detect [facility] Comment:Cannabinoid cut-off is 50 ng/mL.Positive results are unconfirmed and should not be used fornon-medical purposes. Methadone Screen, Urine Not Detected Not Detect ng/mL [facility] Comment:Methadone cut-off is 300 ng/mL.Positive results are unconfirmed and should not be used fornon-medical purposes. FENTANYL URINE POSITIVE(A) Not Detect [facility] Comment:Fentanyl cut-off is 1 ng/mL.Positive results are unconfirmed and should not be used fornon-medical purposes. Oxycodone Urine Screen Not Detected Not Detect ng/mL [facility] Comment:Oxycodone cut-off is 100 ng/mL.Positive results are unconfirmed and should not be used fornon-medical purposes. Buprenorphine Screen Not Detected Not Detect ng/mL [facility] Comment:Buprenorphine cut-of f is 5 ng/mL.Positive results are unconfirmed and should not be used fornon-medical purposes. 08/14/2023 11:0 0 AM EDT 08/14/2023 11:16 AM EDT us Generic External Data Provider LAB URINE ORDERAB LES Final Result [facility] [address] [place] [phone] * CT Head w/o Contrast (08/14/2023 10:35 AM EDT) Anatomical Region Laterality Modality Head, Neck Computed Tomogra phy 08/14/2023 10:3 5 AM EDT Narrative 08/14/2023 12:20 PM EDT ? [facility] ?[address] ?[place] [address] ? CT Scan Report ? Signed ? Patient: Steele,Serafin ?MR#: [id number] ? : 1950 ?Acct:[id number] ? Age/Sex: 73 / M ?ADM Date: 08/14/23 ? Loc: HO.ED ? Attending Dr: ? Ordering Physician: Aubree Jamison DO ?? Date of Service: 08/14/23 ?? Procedure(s): CT head/brain wo IV con ?? Accession Number(s): [id number] ? cc: Aubree Jamison DO; Kayla Doyle ? EXAMINATION: ?? CT HEAD WITHOUT CONTRAST ? CLINICAL INFORMATION: ?? Change in mental status. ? COMPARISON: ?? None available. ? TECHNIQUE: ?? Contiguous axial imaging was performed from the skull base to vertex ?? without intravenous administration of contrast. ? This CT examination was performed using dose optimization techniques as ?? appropriate, variously including the following: ?? *Automated exposure control ?? *Adjustment of mA and/or kV according to patient size (this includes ?? techniques or standardized protocols for targeted exams where dose is ?? matched to indication/reason for exam; i.e. extremities or head) ?? *Use of iterative reconstruction technique ? DLP: ?? 665 mGy-cm ? FINDINGS: ?? There is no evidence of acute intracranial hemorrhage or territorial ?? infarction. No abnormal mass-effect or midline shift is seen. Clarke to ?? white matter differentiation is well preserved. No extra-axial fluid ?? collections are identified. ? The ventricles are normal in size. There is no abnormal attenuation ?? within the brain parenchyma. The osseous structures and soft tissues ?? are normal. Minimal mucosal thickening is seen in some of the ethmoid ?? air cells. The mastoid air cells and visualized portions of the ?? paranasal sinuses are well-aerated. ? CT/CT head/brain wo IV con ?? IMPRESSION: ?? * ??No acute intracranial pathology. ?? * ??Mild mucosal thickening in some of the ethmoid air cells. ? Dictated By: ?Alejandrina Bains MD ? Signed By: ?<Electronically signed by Alejandrina Bains MD in OV> ? 08/14/23 1216 ? DD/ 1035 ? TD/TT: ? Didactic Instructor: SAGE ? Procedure Note Donotsamiater, Image - 08/14/[address] [address] [address] Scan Report Signed Patient: Mel Steele#: [id number] : 1950cct:[id number] Age/Sex: 73 / MADM Date: 08/14/23 Loc: HO.ED Attending Dr: Ordering Physician: Aubree Jamison DO Date of Service: 08/14/23 Procedure(s): CT head/brain wo IV con Accession Number(s): [id number] cc: Aubree Jamison DO; Kayla Doyle EXAMINATION: CT HEAD WITHOUT CONTRAST CLINICAL INFORMATION: Change in mental status. COMPARISON: None available. TECHNIQUE: Contiguous axial imaging was performed from the skull base to vertex without intravenous administration of contrast. This CT examination was performed using dose optimization techniques as appropriate, variously including the following: *Automated exposure control *Adjustment of mA and/or kV according to patient size (this includes techniques or standardized protocols for targeted exams where dose is matched to indication/reason for exam; i.e. extremities or head) *Use of iterative reconstruction technique DLP: 665 mGy-cm FINDINGS: There is no evidence of acute intracranial hemorrhage or territorial infarction. No abnormal mass-effect or midline shift is seen. Clarke to white matter differentiation is well preserved. No extra-axial fluid collections are identified. The ventricles are normal in size. There is no abnormal attenuation within the brain parenchyma. The osseous structures and soft tissues are normal. Minimal mucosal thickening is seen in some of the ethmoid air cells. The mastoid air cells and visualized portions of the paranasal sinuses are well-aerated. CT/CT head/brain wo IV con IMPRESSION: * No acute intracranial pathology. * Mild mucosal thickening in some of the ethmoid air cells. Dictated By: Alejandrina Bains MD Signed By: <Electronically signed by Alejandrina Bains MD in OV> 08/14/23 1216 DD/ 1035 TD/TT: Didactic Instructor: SAGE [facility] External Provider IMG CT PROCEDURES Final Result * XR Chest 1 View (08/14/2023 10:29 AM EDT) Anatomical Region Laterality Modality Chest Radiographic Charlotte ging 08/14/2023 10:2 9 AM EDT Narrative 08/14/2023 12:10 PM EDT ? [facility] ?[address] ?[place], [place] [address] ?XRay Report ? Signed ? Patient: Serafin Steele ?MR#: [id number] ? : 1950 ?Acct:[id number] ? Age/Sex: 73 / M ?ADM Date: 08/14/23 ? Loc: HO.ED ? Attending Dr: ? Ordering Physician: Aubree Jamison DO ?? Date of Service: 08/14/23 ?? Procedure(s): XR chest 1V ?? Accession Number(s): [id number] ? cc: Aubree Jamison DO; Kayla Doyle ? EXAMINATION: ?? XR CHEST ? CLINICAL INFORMATION: ?? Possible aspiration. ? COMPARISON: ?? Chest and right ribs of 01/05/2022. ? TECHNIQUE: ?? Frontal view of the chest was obtained. ? FINDINGS: ?? Lung volumes are low. There is no gross pneumothorax. Dextroscoliosis ?? of the thoracolumbar spine with multilevel degenerative changes. ? Heart size within normal limits. ? Streaky bibasilar opacities may represent atelectasis, but an ?? infectious/inflammatory process should also be considered. Possible ?? trace left pleural effusion. ? XR/XR chest 1V ?? IMPRESSION: ?? Streaky bibasilar opacities may represent atelectasis, but an ?? infectious/inflammatory process should also be considered. Possible ?? trace left pleural effusion. ? This study was presented today, August 14, 2023, for interpretation. Stat ?? results provided at this time as requested by referring provider. ? Dictated By: ?Tawny Guerra MD ? Signed By: ?<Electronically signed by Tawny Guerra MD in OV> ? 08/14/23 1206 ? DD/ 1029 ? TD/TT: ? Didactic Instructor: ? Procedure Note Donotuseinterpreter, Image - 08/14/[address] [address] XRay Report Signed Patient: Mel Steele#: [id number] : 1950cct:[id number] Age/Sex: 73 / MADM Date: 08/14/23 Loc: HO.ED Attending Dr: Ordering Physician: Aubree Jamison DO Date of Service: 08/14/23 Procedure(s): XR chest 1V Accession Number(s): [id number] cc: Aubree Jamison DO; Kayla Doyle EXAMINATION: XR CHEST CLINICAL INFORMATION: Possible aspiration. COMPARISON: Chest and right ribs of 01/05/2022. TECHNIQUE: Frontal view of the chest was obtained. FINDINGS: Lung volumes are low. There is no gross pneumothorax. Dextroscoliosis of the thoracolumbar spine with multilevel degenerative changes. Heart size within normal limits. Streaky bibasilar opacities may represent atelectasis, but an infectious/inflammatory process should also be considered. Possible trace left pleural effusion. XR/XR chest 1V IMPRESSION: Streaky bibasilar opacities may represent atelectasis, but an infectious/inflammatory process should also be considered. Possible trace left pleural effusion. This study was presented today, August 14, 2023, for interpretation. Stat results provided at this time as requested by referring provider. Dictated By: Tawny Guerra MD Signed By: <Electronically signed by Tawny Guerra MD in OV> 08/14/23 1206 DD/ 1029 TD/TT: Didactic Instructor: [facility] External Provider IMG XR PROCEDURES Final Result * B Type Natriuretic Peptide (BNP) (08/14/2023 10:17 AM EDT) B Type Natriuretic Peptide 54 <100 pg/mL [facility] Comment:For those patients w ho are being treated with Natrecor(nesiritide, recombinant BNP), BNP testing should beperformed at least two hours post treatment in order toensure that only endogenous levels of BNP are detected. 08/14/2023 10:1 7 AM EDT 08/14/2023 10:18 AM EDT Generic External Data Provider LAB BLOOD ORDERAB LES Final Result Performing Organization Address [facility] Phone Number [facility] [address] [place] [phone] * High Sensitivity Troponin I (08/14/2023 9:51 AM EDT) TROPONIN I HIGH SENSITIVITY 31.7 <3.5 - 35.0 ng/L [facility] Comment:The Wilks high sens itivity Troponin-I results should beused in conjunction with other diagnostic information suchas ECG, clinical observations and information, and patientsymptoms to aid in the diagnosis of SD. 08/14/2023 9:51 AM EDT 08/14/2023 9:54 AM EDT [employer] External Data Provider LAB BLOOD ORDERAB LES Final Result Performing Organization Address [facility] Phone Number [facility] [address] [place] [phone] * Prothrombin Time-INR (08/14/2023 9:51 AM EDT) Prothrombin Time 11.6 11.1 - 13.3 SEC [facility] INTERNATIONAL NORM RATIO 1.0 0.9 - 1.1 [facility] Comment:INTERNATIONAL NORMAL IZED RATIO (INR) REFERENCE RANGES Reference RangeFor patients not on anticoagulant therapy: 0.9 - 1.1INR ranges for oral anticoagulanttherapy:For prevention and treatment of venous thrombosis and pulmonary embolism: 2.0 - 3.0For acute myocardial infarction with aspirin therapy: 2.0 - 3.0For acute myocardial infarction without aspirin therapy: 3.0 - 4.0For patients with mechanical prosthetic heart valves: 2.5 - 3.5 08/14/2023 9:51 AM EDT 08/14/2023 9:54 AM EDT us Generic External Data Provider LAB BLOOD ORDERAB LES Final Result [facility] [address] [place] [address] [phone] * (ABNORMAL) CBC auto differential (08/14/2023 9:51 AM EDT) White Blood Count 11.5(H) 4.8 - 10.8 X10*3/uL [facility] Red Blood Count 4.96 4.60 - 5.80 X10*6/uL [facility] Hemoglobin 13.0(L) 14.0 - 18.0 g/dl [facility] Hematocrit 40.6(L) 42.0 - 52.0 % [facility] Mean Corpuscular Volume 81.9 80.0 - 98.0 fL [facility] Mean Corpuscular Hemoglobin 26.2(L) 27.0 - 33.0 pg [facility] Mean Corpuscular HGB Conc 32.0 31.0 - 36.0 g/dl [facility] Red Cell Distribution Width 16.8(H) 11.0 - 16.0 % [facility] Platelet Count 174 160 - 400 X10*3/uL [facility] Mean Platelet Volume 10.9 9.4 - 12.4 fL [facility] Neutrophils Percent Auto 74.2(H) 45 - 73 % [facility] Imm Gran Pct Auto 0.4 0.0 - 0.4 % [facility] Lymphocytes Percent Auto 16.3(L) 20 - 40 % [facility] Monocytes Percent Auto 6.2 2 - 11 % [facility] Eosinophils Percent Auto 2.6 0 - 4 % [facility] Basophils Percent Auto 0.3 0 - 2 % [facility] NRBC Pct Auto 0.0 0.0 - 0.2 /100WBC [facility] Neutrophils Absolute Auto 8.6(H) 2.0 - 8.3 x10*3/uL [facility] Imm Gran Abs Auto 0.05(H) 0.00 - 0.03 X10*3/uL [facility] Lymphocytes Absolute Auto 1.9 1.2 - 4.9 X10*3/uL [facility] Monocytes Absolute Auto 0.7 0.1 - 1.2 X10*3/uL [facility] Eosinophils Absolute Auto 0.3 0.0 - 0.4 X10*3/uL [facility] Basophils Absolute Auto 0.0 0.0 - 0.2 X10*3/uL [facility] NRBC Abs Auto 0.000 0.0 - 0.012 X10*3/uL [facility] 08/14/2023 9:51 AM EDT 08/14/2023 9:54 AM EDT Generic External Data Provider LAB BLOOD ORDERAB LES Final Result Performing Organization Address [facility] Co de Phone Number [facility] [address] [place] [address] [phone] * Calcium (08/07/2023 6:36 AM EDT) Calcium 9.5 8.4 - 10.2 mg/dL [facility] 08/07/2023 6:36 AM EDT 08/07/2023 6:36 AM EDT [employer] External Data Provider LAB BLOOD ORDERAB LES Final Result Performing Organization Address [facility] Co de Phone Number [facility] [address] [place] [phone] * Creatinine, Serum (08/07/2023 6:36 AM EDT) Creatinine, Serum 1.04 0.5 - 1.4 mg/dL [facility] Estimated Glomerular Filt Rate >60 [facility] Comment:NOTE: For -Am erican individuals, multiply the result by 1.210.Chronic Kidney Disease: Estimated GFR < 60 mL/min/1.84v1Kfozbu Kidney Disease: Estimated GFR < 15 mL/min/1.73m2 08/07/2023 6:36 AM EDT 08/07/2023 6:36 AM EDT us Generic External Data Provider LAB BLOOD ORDERAB LES Final Result Performing Organization Address City/[facility]/ZIP Co de Phone Number [facility] [address] [place] [phone] * BUN (Blood Urea Nitrogen) (08/07/2023 6:36 AM EDT) Urea Nitrogen (BUN) 12 9 - 16 mg/dL [facility] 08/07/2023 6:3 6 AM EDT 08/07/2023 6:36 AM EDT us Generic External Data Provider LAB BLOOD ORDERAB LES Final Result Performing Organization Address [facility] Co de Phone Number [facility] [address] [place] [phone] * Electrolyte Panel (08/07/2023 6:36 AM EDT) Sodium 142 135 - 145 mmol/L [facility] Potassium 3.8 3.3 - 5.1 mmol/L [facility] Chloride 104 96 - 108 mmol/L [facility] Carbon Dioxide 26 22 - 29 mmol/L [facility] Anion Gap 16 12 - 20 [facility] 08/07/2023 6:36 AM EDT 08/07/2023 6:36 AM EDT us Generic External Data Provider LAB BLOOD ORDERAB LES Final Result Performing Organization Address [facility]/ZIP Co de Phone Number [facility] [address] [place] [address] [phone] * (ABNORMAL) Protein Creatinine Ratio, Urine (08/07/2023 6:35 AM EDT) Creatinine, Urine 347.15 mg/dL [facility] Protein, Total, Random Urine 30(H) <12 mg/dL [facility] Protein/Creati nine Ratio, Ur 0.09 <0.2 [facility] Comment:The spot urine prote in:creatinine ratio may increase to 0.3during normal . 08/07/2023 6:35 AM EDT 08/07/2023 7:58 AM EDT us Generic External Data Provider LAB URINE ORDERAB LES Final Result Performing Organization Address [facility] Co de Phone Number [facility] [address] [place] [phone] * (ABNORMAL) Urinalysis with Reflex to Microscopic (08/07/2023 6:35 AM EDT) Color Urine Yellow [facility] Appearance Urine Clear [facility] PH 6.0 5.0 - 9.0 [facility] Glucose Urine UA Negative Negative mg/dL [facility] Urine Blood Negative Negative [facility] Specific [place] - Urine >=1.030(H) 1.005 - 1.025 [facility] Urine Protein Negative Neg-Trace mg/dL [facility] Urine Ketones Negative Negative mg/dL [facility] Nitrite Urine Negative Negative [facility] Leukocyte Esterase Urine Negative Negative [facility] 08/07/2023 6:35 AM EDT 08/07/2023 7:58 AM EDT Generic External Data Provider LAB URINE ORDERAB LES Final Result Performing Organization Address [facility]/ZIP Co de Phone Number [facility] [address] [place] [phone] * Hm Colonoscopy (03/27/2018 3:26 PM EST) us Historical Provider HEALTH MAINTENANCE Final Result documented in this encounter Visit Diagnoses Not on filedocumented in this encounter Care Teams Assistant Superintendent Relationship Specialty Start Date End Date Kayla Doyle MD [address] [place] [address] PCP - General Family Medicine 11/08/20 documented as of this encounter
--- OUTSIDE RECORDS SUMMARY | 2024-06-25 06:13 | XMS_ITS | Encounter Summary ---
Author Organization [employer] Address [address] [facility] [address] [place] [address] Care Team Providers Care Election Assistant Name Role Phone Kayla Doyle MD Primary Care Provider [phone] Encounter Details Date Type Department Care Team ([facility] st Contact Info) Description 05/05/2024 Telephone [facility] [address] [place], [place] [phone] Kayla Doyle MD [address] [place], [place] [phone] Social History Tobacco Use Types Packs/Day Years Used Date Smoking Tobacco: Never Smokeless Tobacco: Never Alcohol Use Standard Drinks/Week Comments Not Currently 0 (1 standard drink = 0.6 oz pur e alcohol) 25 yrs ago Housing Stability Answer Date Recorded What is your housing situation today? I have jeaniealla foreman 01/29/[address] you li ve. Do you have problems with any of the following? None of the above 01/29/2024 Food Insecurity Answer Date Recorded Within the past 12 months, y ou worried that your food would run out before you got money to buy more: Never True 01/29/2024 Within the past 12 months,th e food you bought just didn't last and you didn't have enough money to get more: Never True Transportation Answer Date Recorded In the past 12 months, has l ack of transportation kept you from medical appts, meetings, work or from getting things needed for daily living? No 01/29/2024 Utilities Answer Date Recorded In the past 12 months, has t he electric, gas, oil or water company threatened to shut off services in your home? No 01/29/2024 Depression Answer Date Recorded Patient Health Questionnaire-2 Score 0 03/20/2022 Internet Access Answer Date Recorded Internet Access Q1 Yes 01/29/2024 Internet Access Q2 Not on file 01/29/2024 Sex and Gender Information Value Date Recorded Sex Assigned at Male 01/09/2022 10:15 AM EDT Legal Sex Male 10:15 AM EDT Gender Identity Male 01/09/2022 10:15 AM EDT Sexual Orientation Straight 01/09/2022 10 :15 AM EDT documented as of this encounter Plan of Treatment Upcoming Encounters Date Type Department Care Team (Late st Contact Info) Description 07/02/2024 9:00 AM EDT Office Visit [facility] [address] [place] [address] Kwaku Yan DDS [address] [place] [address] 08/26/2024 11:00 AM EDT Office Visit [facility] [address] [place] [address] Kayla Doyle MD [address] [place] [address] documented as of this encounter Visit Diagnoses Not on filedocumented in this encounter Care Teams Election Assistant Relationship Specialty Start Date End Date Kayla Doyle MD [address] [place] [address] PCP - General Family Medicine 11/08/20 documented as of this encounter
--- OUTSIDE RECORDS SUMMARY | 2024-06-25 06:13 | XMS_ITS | Encounter Summary ---
Author Organization [employer] Address [address] [facility] [address] [place] [address] Care Team Providers Care Lawn Technician Name Role Phone Kayla Doyle MD Primary Care Provider [phone] Encounter Details Date Type Department Care Team ([facility] st Contact Info) Description 12/14/2023 Orders Only [facility] [address] [place], [place] [phone] Kayla Doyle MD [address] [place], [place] [phone] Social History Tobacco Use Types Packs/Day Years [...] Description 07/02/2024 9:00 AM EDT Office Visit [facility] ADULT [facility] [address] [place] [address] Kwaku Yan DDS [address] [place] [address] 08/26/2024 11:00 AM EDT Office Visit [facility] [address] [place] [address] Kayla Doyle MD [address] [place] [address] documented as of this encounter Visit Diagnoses Not on filedocumented in this encounter Care Teams Lawn Technician Relationship Specialty Start Date End Date Kayla Doyle MD [address] [place] [address] PCP - General Family Medicine 11/08/20 documented as of this encounter
--- OUTSIDE RECORDS SUMMARY | 2024-06-25 06:13 | XMS_ITS | Clinical Summary ---
Author Organization [facility] Address [address] [place] [address] Phone Care Team Providers Care Supervisor Detasseling Crew Name Role Phone Kayla Doyle MD Primary Care Provider Allergies Active Allergy Reactions Criticality Noted Date Comments Amlodipine 06/09/2020 Other reaction(s): Edema Medications atorvastatin (LIPITOR) 40 MG tablet Take 1 tablet by mouth at bed time at bedtime 04/19/2020 Active levothyroxine (SYNTHROID, LEVOTHROID) 75 MCG tablet Take 1 tablet by mouth 1 (one) time each day 05/20/2020 Active amLODIPine (NORVASC) 10 MG tablet Take 1 tablet by mouth 1 (one) time each day 05/03/2020 Active Buprenorphine HCl-Naloxone HCl (SUBOXONE) 8-2 MG per SL film 06/17/2020 Active hydroCHLOROthia zide 25 MG tablet Take 1 tablet by mouth 1 (one) time each day 10/05/2020 Active metoprolol succinate XL (TOPROL XL) 25 MG 24 hr tablet Take 1 tablet by mouth 1 (one) time each day 10/05/2020 Active V-R STOOL SOFTENER 100 MG capsule Take 1 capsule by mouth if needed 03/07/2021 Active polyethylene glycol (GLYCOLAX) 17 GM/SCOOP powder Take 17 g by mouth 1 (one) time each day 03/07/2021 Active Active Problems Problem Noted Date Diagnosed Date Type 2 diabetes mellitus 06/19/2022 023 Stage 3a chronic kidney disease 04/12/2022 Constipation 03/21/2022 10/25/2022 Overview (10/25/2022): Last Assessment & Plan: Increase fluid and fiber in the diet, high fiber vegetables and whole grains/legumes are especially good Daily stool softener, Miralax as needed to achieve soft BM daily Red flags discussed as reasons to come into clinic (weight loss, blood in stool) Chronic kidney disease 06/18/2020 Hypertension 06/18/2020 Acute nontraumatic kidney injury 06/18/2020 Opioid dependence, in remission 10/19/2014 10/25/2022 Overview (10/25/2022): Last Assessment & Plan: Decreasing methadone No cravings, no urge to use Polyp of colon 02/19/2012 10/25/2022 Acquired hypothyroidism 09/07/2011 10/26/19 23 Anemia 09/07/2011 10/25/2022 Anxiety state 09/07/2011 10/25/2022 Depressive disorder 09/07/2011 10/25/2022 Immunizations Immunization Administration Dates Next Due Hepatitis A 11/20/2007 Hepatitis B 07/10/2013,01/20/2008,11/20/2007 Influenza Split 02/19/2012 Influenza, Quadrivalent, Pre servative Free 03/20/2022,01/20/2019,03/25/2018 Influenza, Quadrivalent, Wit h Preservative 02/08/2017 Moderna SARS-COV-2 10/18/2021,,06/22/2020,05/25 Pneumococcal Conjugate 13-Valent 02/08/2017 Pneumococcal Polysaccharide 01/06/2020 Shingrix 09/09/2021,07/01/2021 Td 12/22/2018,11/20/2007 Tdap 12/06/2010 Zoster 02/08/2017 Family History Medical History Relation Comments Heart disease Brother Cancer Father Diabetes Sister Hypertension Sister Relation Status Comments Brother Father Sister Social History Tobacco Use Types Packs/Day Years Used Date Smoking Tobacco: Never Smokeless Tobacco: Never Tobacco Cessation:Counseling Given: Not Answered Alcohol Use Standard Drinks/Week Comments Never 0 (1 standard drink = 0.6 oz pur e alcohol) Sex and Gender Information Value Date Recorded Sex Assigned at Not on file Legal Sex Male 10:11 AM EST Gender Identity Not on file Sexual Orientation Not on file Last Filed Vital Signs Vital Sign Reading Time Taken Comments Blood Pressure 122/70 03/07/2023 1:21 PM EST Pulse 81 03/07/2023 1:21 PM EST Temperature - - Respiratory Rate - - Oxygen Saturation 98% 04/13/2021 1:07 PM EST Inhaled Oxygen Concentration - - Weight 77.1 kg (170 lb) 03/07/2023 1:21 PM EST Height - - Body Mass Index - - Plan of Treatment Health Maintenance Due Date Last Done Comments Colorectal Cancer Screening: Annual FOBT 1999 Colorectal Cancer Screening: Colonoscopy 1999 Colorectal Cancer Screening: Sigmoidoscopy 1999 Diabetes: Ophthalmology Exam 10/25/2022 Diabetes: Pedal Pulse Checked 10/25/2022 Diabetes: Sensory Foot Exam 10/25/2022 Diabetes: Visual Foot Exam 10/25/2022 Diabetes: Hemoglobin A1C 2023 12/29/2022, 04/12 Influenza Vaccine (Season Ended) 2024 03/20/2022, 01/20/2019, 03/25/2018, Additional history exists Hepatitis B Vaccine Aged Out 07/10/2013, 01/20/2008, 11/20/2007 No longer eligible based on patient's age to complete this topic Pneumococcal Vaccine: 50+ Years Completed 01/06/2020, 02/08/2017 Pneumococcal Vaccine: Peds (0 to 5 Years) and At-Risk Patients (6 to 49 Years) Discontinued 01/06/2020, 02/08/2017 Procedures Procedure Name Priority Date/Time Associated Diagnosis Comments EXT RESULT ENTRY Routine 04/30/2020 from Last 3 Months or Most Recently Relevant to Health Maintenance Results * (ABNORMAL) EXT RESULT ENTRY (04/30/2020) Hemoglobin 10.8(A) 13.5 - 17.5 Hematocrit 33.4(A) 41.0 - 53.0 Platelets 163 150 - 399 10*3/UL Sodium 140 137 - 147 Potassium 4.6 3.4 - 5.5 Chloride 101 99 - 108 Bicarbonate (CO2) 29 22 - 30 mmol/L BUN 32(A) 4 - 21 mg/dL Creatinine 1.87(A) 0.60 - 1.30 mg/dL Calcium 9.3 8.7 - 10.7 mg/dL eGFR Non-Afr Albanian 36 eGFR 41 Hemoglobin A1C 5.6 4.0 - 6.0 Alb/Creat Ratio, Ur 5.00 mg/g Creat Triglycerides 66 40 - 160 Cholesterol 136 0 - 200 HDL 62 35 - 70 MG/DL LDL Calculated 59 0 - 160 mg/dL 04/30/2020 Historical Provider LAB BLOOD ORDERABLES Xiomy l Result from Last 3 Months or Most Recently Relevant to Health Maintenance Insurance [facility] ([id number]) [facility] ([id number]) Care Teams Supervisor Detasseling Crew Relationship Specialty Start Date End Date Kayla Doyle MD PCP - General Planning Lead 04/13/21
--- OUTSIDE RECORDS SUMMARY | 2024-06-25 06:13 | XMS_ITS | Encounter Summary ---
Author Organization [employer] Address [address] [facility] 7t [place] [address] Care Team Providers Care Heavy Rail Train Operator Name Role Phone Kayla Doyle MD Primary Care Provider Reason for Visit * Reason Comments Med Refill Encounter Details Date Type Department Care Team (Late st Contact Info) Description 02/11/2024 Refill [facility] [address] [place], [place] [phone] Kayla Doyle MD [address] [facility] [place], [place] [phone] Other hyperlipidemia Social History Tobacco Use Types Packs/Day Years [...] 07/02/2024 9:00 AM EDT Office Visit [facility] ADULT D[facility] [address] [place] [address] Kwaku Yan DDS [address] [place] [address] 08/26/2024 11:00 AM EDT Office Visit [facility] MEDICINE [address] [place] [address] Kayla Doyle MD [address] [place] [address] documented as of this encounter Visit Diagnoses Diagnosis Other hyperlipidemia documented in this encounter Care Teams Heavy Rail Train Operator Relationship Specialty Start Date End Date Kayla Doyle MD [address] [place] [address] PCP - General Family Medicine 11/08/20 documented as of this encounter
--- OUTSIDE RECORDS SUMMARY | 2024-06-25 06:13 | XMS_ITS | Encounter Summary ---
Author Organization [facility] Address [address] [facility] [address] [place] [address] Care Team Providers Care Junior Project Coordinator Name Role Phone Kayla Doyle MD Primary Care Provider [phone] Encounter Details Date Type Department Care Team (Late st Contact Info) Description 11/14/2022 Abstract [facility] [address] [place], [place] [phone] Kayla Doyle MD [address] [place], [place] [phone] Social History Tobacco Use Types Packs/Day Years Used Date Smoking Tobacco: Never Smokeless Tobacco: Never Alcohol Use Standard Drinks/Week Comments Not Currently 0 (1 standard drink = 0.6 oz pur e alcohol) 25 yrs ago Depression Answer Date Recorded Patient Health Questionnaire-2 [...] Description 07/02/2024 9:00 AM EDT Office Visit [facility] ADULT D[facility] [address] [place], [place] [phone] Kwaku Yan DDS [address] [place], [place] [phone] 08/26/2024 11:00 AM EDT Office Visit [facility] MED[facility] [address] [place] [phone] Kayla Doyle MD [address] [place], [place] [phone] documented as of this encounter Visit Diagnoses Not on filedocumented in this encounter Care Teams Junior Project Coordinator Relationship Specialty Start Date End Date Kayla Doyle MD [address] [place], [place] [phone] PCP - General Family Medicine 11/08/20 documented as of this encounter
[2024-06-25 07:52] LABS: Anion Gap 14 (12-20); Blood Urea Nitrogen 13 mg/dL (9-16); Calcium 9.6 mg/dL (8.4-10.2); Carbon Dioxide 28 mmol/L (22-29); Chloride 102 mmol/L (96-108); Estimated Glomerular Filt Rate > 60; Potassium 3.4 mmol/L (3.3-5.1); Sodium 141 mmol/L (135-145)
[2024-06-25 07:54] LABS: Creatinine Urine 186.93 mg/dL; Protein/Creatinine Ratio, Ur 0.07 (<0.2); Total Protein Urine Random 13 mg/dL (<12)
== END 2024-06-25 06:11 | disposition home or self-care (01) ==
LOC: HO.LAB 06:10
PROVIDERS: PCP General Practice; Visit Provider Internal Medicine Nephrology
DX: N18.31 Chronic kidney disease, stage 3a (principal); I10 Essential (primary) hypertension
CPT/HCPCS: 36415; 80051; 82310; 82565; 82570; 84156; 84520

== ENCOUNTER 2024-07-04 12:07 | Outpatient (AMB) | payer OTHER, SELFPAY ==
[2024-07-04 12:08] VITALS: BP 120/70; PULSE 80; O2SAT 96; BMI 27.3
--- NOTE | 2024-07-04 12:08 | HO.NEPHOV_ITS ---
Vital Signs 07/04/24 12:08 Height 5 ft 10 in Weight 190 lb BMI 27.3 BP 120/70 Blood Pressure Location Lt brachial Position Sitting Pulse 80 Pulse Source Pulse Oximeter Pulse Oximetry (%) 96 Oxygen Delivery Method Room Air Intake Visit Reasons: 6mon follow up-Conf Forging Press Lever Tender Required: No Accompanied by: Significant Other Allergies No Known Allergies [No Known Allergies*] Allergy (Verified 07/04/24 12:11) Do you need a note to return to daycare/school/sports/work: No PFSH Medical History CKD (chronic kidney disease) stage 3, GFR 30-59 ml/min Hypothyroidism Anemia Insomnia Anxiety Hepatitis C Thyroid disease History of colon polyps HTN (hypertension) Surgical History H/O umbilical hernia repair H/O colonoscopy Social History Alcohol intake: current Alcohol intake frequency: holidays/special occasions only Patient Tobacco Use Status: Never used Tobacco Substance Use Type: Other service: No Review of Systems Const All systems reviewed & are unremarkable except as noted in HPI and below Physical Exam Const General: comfortable and no acute distress Orientation/consciousness: patient oriented x3 HEENT Head: Yes normocephalic Mouth: Normal oral and palatal mucosa present Eyes EOM: EOMs intact bilaterally Neck Neck: Yes supple Resp Auscultation: clear to auscultation bilaterally Cardio Jugular venous distension: no JVD Rate: regular rate GI Palpation (GI): Soft to palpation Auscultation: normal bowel sounds General: Yes no CVA tenderness Back/Spine/Pelvis Back: no CVA tenderness Skin General skin exam: no rashes or lesions noted Neuro General: patient oriented x3 and moves all extremities Extrem General: Yes no pedal edema Results Reviewed Nephrology Results: Sodium 141 mmol/L (135-145) 06/25/24 Potassium 3.4 mmol/L (3.3-5.1) 06/25/24 Chloride 102 mmol/L (96-108) 06/25/24 Carbon Dioxide 28 mmol/L (22-29) 06/25/24 BUN 13 mg/dL (9-16) 06/25/24 Creatinine 1.12 mg/dL (0.5-1.4) 06/25/24 Calcium 9.6 mg/dL (8.4-10.2) 06/25/24 Urine Creatinine 186.93 mg/dL 06/25/24 Protein/Creatinin Ratio 0.07 (<0.2) 06/25/24 Assessment & Plan Assessment & Plan (1) CKD (chronic kidney disease) stage 3, GFR 30-59 ml/min: Code(s): N18.30 - Chronic kidney disease, stage 3 unspecified Category: Medical Qualifiers: Chronic kidney disease stage 3 subtype: stage 3a (GFR 45-59) Qualified Code(s): N18.31 - Chronic kidney disease, stage 3a (2) HTN (hypertension): Code(s): I10 - Essential (primary) hypertension Category: Medical Qualifiers: Hypertension type: primary hypertension Qualified Code(s): I10 - Essential (primary) hypertension Plan Serafin has history of CKD stage 3 and longstanding hypertension. His renal functions are quite stable. His blood pressure is at goal. His volume status is optimal. His cryoglobulin was negative in the past. He avoids nonsteroidal anti-inflammatories and maintain good hydration. I did not make any medication changes today. Follow-up blood work ordered.. Orders: Orders Protein Creatinine Ratio, Ur 6 Months I10 - Essential (primary) hypertension, N18.31 - Chronic kidney disease, stage 3a Blood Urea Nitrogen 6 Months I10 - Essential (primary) hypertension, N18.31 - Chronic kidney disease, stage 3a UA and rflx microscopic 6 Months I10 - Essential (primary) hypertension, N18.31 - Chronic kidney disease, stage 3a Creatinine 6 Months I10 - Essential (primary) hypertension, N18.31 - Chronic kidney disease, stage 3a Electrolytes 6 Months I10 - Essential (primary) hypertension, N18.31 - Chronic kidney disease, stage 3a Coding Level of Care Code Est Pt Level 4 (61866) Diagnoses Stage 3a chronic kidney disease N18.31 Chronic kidney disease stage 3 subtype: stage 3a (GFR 45-59) Primary hypertension I10 Hypertension type: primary hypertension
--- OUTSIDE RECORDS SUMMARY | 2024-07-04 12:57 | XMS_ITS | Clinical Summary ---
Author Organization [facility] Address [address] [place] [address] Phone Care Team Providers Care Skein Mercerizing Machine Operator Name Role Phone Kayla Doyle MD Primary Care Provider [phone] Allergies Active Allergy Reactions Criticality Noted Date [...] 9.3 8.7 - 10.7 mg/dL eGFR Non-Afr Moroccan 36 eGFR 41 Hemoglobin A1C 5.6 4.0 - 6.0 Alb/Creat Ratio, Ur 5.00 mg/g Creat Triglycerides 66 40 - 160 Cholesterol 136 0 - 200 HDL 62 35 - 70 MG/DL LDL Calculated 59 0 - 160 mg/dL 04/30/2020 Historical Provider LAB BLOOD ORDERABLES Xiomy l Result from Last 3 Months or Most Recently Relevant to Health Maintenance Insurance [facility] ([id number]) [facility] ([id number]) Care Teams Skein Mercerizing Machine Operator Relationship Specialty Start Date End Date Kayla Doyle MD PCP - General Doorperson 04/13/21
== END 2024-07-04 12:19 | disposition home or self-care (01) ==
LOC: HO.HKA 12:08
PROVIDERS: PCP General Practice; Visit Provider Internal Medicine Nephrology
DX: N18.31 Chronic kidney disease, stage 3a (principal); I10 Essential (primary) hypertension
CPT/HCPCS: 99214

== ENCOUNTER → 2024-07-04 12:07 | Outpatient (BNVA) | payer OTHER, SELFPAY | PROVIDERS: PCP General Practice; Visit Provider Internal Medicine Nephrology | DX: I12.9 Hypertensive chronic kidney disease with stage 1 through stage 4 chronic kidney disease, or unspecified chronic kidney disease (principal); N18.31 Chronic kidney disease, stage 3a | CPT/HCPCS: 99212 ==

== ENCOUNTER 2025-01-15 06:14 | Outpatient (REF) | payer OTHER, SELFPAY ==
--- OUTSIDE RECORDS SUMMARY | 2025-01-15 06:17 | XMS_ITS | Clinical Summary ---
Author Organization [employer] Address [address] [place] [address] [address] [place] [address] Care Team Providers Care Laborer General Name Role Phone Kayla Doyle MD Primary Care Provider [phone] Allergies Active Allergy Reactions Criticality Noted Date Comments Amlodipine 06/09/2020 Other reaction(s): Edema Medications naloxone (Narcan) 4 mg/0.1 mL nasal spray Administer 1 spray (4 mg) into affected nostril(s) if needed for opioid reversal. 2 each 1 09/07/19 24 Active levothyroxine (Synthroid, Levoxyl) 75 MCG tabletIndications :Acquired hypothyroidism TAKE 1 TABLET BY MOUTH EVERY MORNING 90 tablet 3 05/05/19 25 Active hydroCHLOROthiazi de (HYDRODiuril) 25 MG tabletIndications :Primary hypertension TAKE 1 TABLET BY MOUTH EVERY MORNING 90 tablet 3 05/05/19 25 Active hydroCHLOROthiazi de (HYDRODiuril) 25 MG tabletIndications :Primary hypertension Take 1 tablet (25 mg) by mouth in the morning. 90 tablet 3 05/06/19 25 Active acetaminophen (Tylenol) 500 MG tablet take 1 tablet by mouth every 4 to 6 hours as needed 07/16/19 25 Active chlorhexidine (Peridex) 0.12 % solution SWISH 15 ML IN THE MOUTH OR THROAT FOR 30 SECONDS THEN SPIT OUT TWICE DAILY IN THE MORNING AND IN THE EVENING AFTER BRUSH TEETH 07/16/19 25 Active ibuprofen 600 MG tablet take 1 tablet by mouth every 6 to 8 hours as needed 07/16/19 25 Active loratadine (Claritin) 10 MG tablet Take 1 tablet (10 mg) by mouth at bedtime. 90 tablet 3 08/27/19 25 06/17/ 2026 Active gabapentin (Neurontin) 300 MG capsule Take 1 capsule (300 mg) by mouth 2 times daily. 60 capsule 11 08/27/19 25 2025 Active metoprolol succinate XL (Toprol-XL) 25 MG 24 hr tablet TAKE 1 TABLET BY MOUTH EVERY MORNING 90 tablet 3 10/17/19 25 Active docusate sodium (Colace) 100 MG capsuleIndication s:Constipation, unspecified constipation type TAKE 1 CAPSULE BY MOUTH EVERY MORNING 90 capsule 3 10/25/19 25 Active cyanocobalamin (Vitamin B-12) 1000 MCG tablet TAKE 1 TABLET BY MOUTH EVERY MORNING 30 tablet 11 11/18/19 25 Active atorvastatin (Lipitor) 40 MG tabletIndications :Other hyperlipidemia TAKE 1 TABLET BY MOUTH AT BEDTIME 90 tablet 3 01/15/20 25 Active atorvastatin (Lipitor) 40 MG tabletIndications :Other hyperlipidemia Take 1 tablet (40 mg) by mouth at bedtime. 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 06/05/2024 Exostosis 05/26/2024 Dental caries 03/10/2024 Other hyperlipidemia 02/11/2024 Assessment & Plan (02/11/2024 12:03 PM EST): Refills sent for lipitor and instructed pharmacy to add back to [facility] Night sweats 02/11/2024 Assessment & Plan (02/11/2024 11:56 AM EST): Pt pulmonary physical exam wnl Denies SOB, sputum production, fever, chills Will obtain CBC annd T spot today to r/o TB infection Neuropathy 02/11/2024 Assessment & Plan (02/11/2024 11:58 AM EST): No obvious varicosities, swelling, redness, excessive heat, calf tenderness on physical exam Pedal pulses were 2+ Will titrate up gabapentin dose from twice daily to TID F/u in 3-4 months with PCP Cough 02/11/2024 Assessment & Plan (08/27/2024 1:50 PM EDT): With funmi middle ear effusion and posterior pharynx erythema Will treat with Claritin 10mg at bedtime Screening for prostate cancer 12/29/2022 Constipation 03/21/2022 Assessment & Plan (12/29/2022 10:16 AM EDT): Increase fluid and fiber in the diet, high fiber vegetables and whole grains/legumes are especially good Daily stool softener, Miralax as needed to achieve soft BM daily Red flags discussed as reasons to come into clinic (weight loss, blood in stool) Assessment & Plan (08/24/2022 11:07 AM EDT): Increase fluid and fiber in the diet, high fiber vegetables and whole grains/legumes are especially good Daily stool softener, Miralax as needed to achieve soft BM daily Red flags discussed as reasons to come into clinic (weight loss, blood in stool) Stage 3a chronic kidney disease (CMS/HCC) 2020 Assessment & Plan (02/11/2024 12:00 PM EST): Stable disease Continue to f/u with insurance verification clerk q 6 months Assessment & Plan (09/19/2023 6:21 AM EDT): Last saw nephro 08/2023 Assessment & Plan (06/19/2022 1:27 PM EDT): Last saw nephro 04/2022 Stable disease Chronic kidney disease 06/18/2020 Opioid dependence, in remission 10/19/2014 Overview (03/16/2023): Decreasing methadone No cravings, no urge to use Assessment & Plan (09/19/2023 6:22 AM EDT): Denies feelings of relapse or desire to use opioids again Assessment & Plan (03/16/2023 1:49 PM EST): Decreasing methadone No cravings, no urge to use Assessment & Plan (06/19/2022 1:27 PM EDT): Decreasing methadone No cravings, no urge to use Polyp of colon 02/19/2012 Acquired hypothyroidism 09/07/2011 Anemia 09/07/2011 Anxiety state 09/07/2011 Depressive disorder 09/07/2011 Hypertension 09/07/2011 Assessment & Plan (02/11/2024 12:04 PM EST): When BP was rechecked today it was at goal of <140/90 Will continue on hydrochlorothiazide and Metoprolol daily Will continue to check home BPs Assessment & Plan (09/19/2023 6:21 AM EDT): Maintenance: hydrochlorothiazide 25mg, Metoprolol 25mg XL BMP: Lab Results Component Value Date CREATININE 1.15 09/14/2023 CREATININE 1.42 (H) 09/29/2021 K 3.6 09/14/2023 Lipid Panel: ASCVD Risk: Calculate pending updated labs EKG: Obtain baseline at f/u - Aerobic exercise to reduce BP. Initial goal of 30 min walk 3-5x/week. Increase as tolerated. - low-sodium diet (goal: <2g/day) and heart healthy diet such as DASH to reduce BP and prevent ASCVD. - Home BP monitoring 1-2 x day with goal of <140/90. - Seek immediate medical attention for chest pain, palpitations, SOB, syncope, or sudden changes in mental status. - Do not change or discontinue current prescriptions without first consulting health care provider Assessment & Plan (03/16/2023 1:49 PM EST): Maintenance: hydrochlorothiazide 25mg, Metoprolol 25mg XL BMP: Lab Results Component Value Date CREATININE 1.42 (H) 09/29/2021 K 3.2 (L) 09/29/2021 Lipid Panel: ASCVD Risk: Calculate pending updated labs EKG: Obtain baseline at f/u - Aerobic exercise to reduce BP. Initial goal of 30 min walk 3-5x/week. Increase as tolerated. - low-sodium diet (goal: <2g/day) and heart healthy diet such as DASH to reduce BP and prevent ASCVD. - Home BP monitoring 1-2 x day with goal of <140/90. - Seek immediate medical attention for chest pain, palpitations, SOB, syncope, or sudden changes in mental status. - Do not change or discontinue current prescriptions without first consulting health care provider Assessment & Plan (12/29/2022 10:16 AM EDT): At goal <140/90 Continue current meds Assessment & Plan (06/19/2022 1:26 PM EDT): At goal <140/90 Resolved Problems Problem Noted Date Diagnosed Date Resolved Date Sore throat 02/11/2024 08/27/2024 Assessment & Plan (02/11/2024 12:01 PM EST): Covid, Flu, Strep negative today Discussed conservative treatment including salt water gargles, use of lozenges and tylenol for pain control. Also discussed importance of fluid hydration (getting 2-3 L of water daily). Pre-diabetes 09/14/2023 08/27/2024 Assessment & Plan (09/14/2023 10:18 AM EDT): A!C 5.6- 5.7 for past 3 years Continue to monitor annually Encounters Date Type Department Care Team Description 01/14/2025 Refill [facility] MEDICINE [address] [place] [address] Kayla Doyle MD Other hyperlipidemia 11/15/2024 Refill [facility] MEDICINE [address] [place] [address] Kayla Doyle MD 10/23/2024 Refill [facility] MEDICINE [address] [place] [address] Kayla Doyle MD Constipation, unspecified constipation type 10/16/2024 Refill [facility] [address] [place] [address] Kayla Doyle MD from Last 3 Months Immunizations Immunization Administration Dates Next Due Hep A, Adult 12/29/2022,11/20/2007 Hep B, adult 07/10/2013,01/20/2008,11/20/2007 Influenza High-dose Quadriva lent Preservative Free 12/29/2022,01/06/2020 Influenza injectable quadriv alent IIV4 with preservative 02/08/2017 Influenza injectable quadriv alent preservative free 03/20/2022,01/20/2019,03/25/2018 Influenza, High Dose Seasona l, Preservative Free 12/13/2023 Influenza, IIV3, injectable 01/13/2014, 1 Influenza, Split (incl. cheo fied surface antigen) 02/19/2012 Moderna Covid-19 Vaccine 12+ 10/18/2021, 01/25/2021,06/22/2020,05/25 Moderna Covid-19 Vaccine 6+ Bivalent 03/20/2022 Pfizer Covid-19 Vaccine 12+ 12/13/2023 Pneumococcal Conjugate PCV 13 02/08/2017 Pneumococcal Polysaccharide PPSV23 01/06/2020 RSV Bivalent 10/09/2023 TD (adult), 2 Lf tetanus tox oid, preservative free, adsorbed 12/22/2018,11/20/2007 Tdap 12/06/2010 Zoster, Recombinant 09/09/2021,07/01/2021 Zoster, live 02/08/2017 Social History Tobacco Use Types Packs/Day Years Used Date Smoking Tobacco: Never Smokeless Tobacco: Never Tobacco Cessation:Counseling Given: Not Answered Alcohol Use Standard Drinks/Week Comments Not Currently 0 (1 standard drink = 0.6 oz pur e alcohol) 25 yrs ago Depression Answer Date Recorded Patient Health Questionnaire-9 Score 0 08/26/2024 Patient Health Questionnaire-9 Score 0 08/26/2024 Last PHQ-9: Questionnaire Data Not on file 0 08/26/2024 Housing Stability Answer Date Recorded What is your housing situation today? I have jeanie foreman 01/29/[address] you [...] to shut off services in your home? Yes 08/18/2024 Depression Answer Date Recorded Patient Health Questionnaire-2 Score 0 08/26/2024 Internet Access Answer Date Recorded Internet Access Q1 Yes 01/29/2024 Internet Access Q2 Not on file 01/29/2024 Sex and Gender Information Value Date Recorded Sex Assigned at Male 01/09/2022 10:15 AM EDT Legal Sex Male 10:15 AM EDT Gender Identity Male 01/09/2022 10:15 AM EDT Sexual Orientation Straight 01/09/2022 10 :15 AM EDT Last Filed Vital Signs Vital Sign Reading Time Taken Comments Blood Pressure 138/82 08/26/2024 10:54 AM EDT Pulse 88 08/26/2024 10:54 AM EDT Temperature 36.2 C (97.2 F) 08/26/2024 10:54 AM EDT Respiratory Rate 20 08/26/2024 10:54 AM EDT Oxygen Saturation 97% 02/11/2024 11:00 AM EST Inhaled Oxygen Concentration - - Weight 88.7 kg (195 lb 9.6 oz) 08/26/2024 10:54 AM EDT Height 170.2 cm (5' 7 ) 08/26/2024 10:54 AM EDT Body Mass Index 30.64 08/26/2024 10:54 AM EDT Plan of Treatment Upcoming Encounters Date Type Department Care Team (Late st Contact Info) Description 02/13/2025 9:45 AM EST Office Visit [facility] MEDICINE [address] [place] [address] Kayla Doyle MD [address] [place] [address] Health Maintenance Due Date Last Done Comments CT Colonography 1950 FIT DNA/Cologuard 1950 FIT 1950 FOBT 1950 Sigmoidoscopy 1950 Alcohol/Substance Use Screening 1962 Dental X-Ray: Bitewings 09/11/2012 09/11/2011, 09/06 Dental Oral Exam 04/21/2024 10/19/2023, 04/2011, 09/06/2010 Lipid Panel 09/13/2024 09/14/2023, 04/1 , 03/02/2021, Additional history exists Dental Prophylaxis 10/20/2024 04/21/2024, 0 10/19/2023, 01/11/2011 COVID-19 Vaccine ( season) 2024 12/13/2023, 03/20/2022, 10/18/2021, Additional history exists Influenza Vaccine (#1) 2024 , 12/29/2022, 03/20/2022, Additional history exists Diabetes: Hemoglobin A1C 02/25/2025 025, 03/16/2023, 12/29/2022, Additional history exists SDOH Screening 08/18/2025 08/18/2024 Depression Screening 08/26/2025 08/26/2024, 08/27/19 25 Tobacco Screening 08/26/2025 08/26/2024 Dental X-Ray: Full Mouth 10/19/2026 024, 09/06/2010, 12/30/2009 Colonoscopy 04/20/2028 03/27/2018 Colorectal Cancer Screening 04/20/2028 DTaP/Tdap/Td Vaccines (3 - Td or Tdap) 12/22/2028 12/22/2018, 12/06/2010, 11/20/2007 Hepatitis B Vaccines Completed 07/10/2013, 01/20/2008, 11/20/2007 Pneumococcal Vaccine: 50+ Years Completed 01/06/2020, 02/08/2017 Hepatitis C Screening Completed 07/01/2021 , 03/30/2021, 03/30/2021 Zoster Vaccines Completed 09/09/2021, 06/11, 02/08/2017 Hepatitis A Vaccines Aged Out 12/29/2022, 11/20/19 08 No longer eligible based on patient's age to complete this topic RSV Patients and Patients Aged 60 years or older Completed 10/09/2023 Diabetes: Foot Exam Discontinued Eye Exam Discontinued HIB Vaccines Aged Out No longer eligi ble based on patient's age to complete this topic HPV Vaccines Aged Out No longer eligi ble based on patient's age to complete this topic IPV Vaccines Aged Out No longer eligi ble based on patient's age to complete this topic Meningococcal B Vaccine Aged Out No l onger eligible based on patient's age to complete this topic Meningococcal Vaccine Aged Out No flakita norma eligible based on patient's age to complete this topic RSV under 20 months Aged Out No longe r eligible based on patient's age to complete this topic Rotavirus Vaccines Aged Out No longer eligible based on patient's age to complete this topic Procedures Procedure Name Priority Date/Time Associated Diagnosis Comments POCT GLYCATED HEMOGLOBIN, TOTAL Routine 08/26/2024 10:56 AM EDT Type 2 diabetes mellitus with stage 3a chronic kidney disease, without long-term current use of insulin ([facility]) PROPHYLAXIS - ADULT Routine 04/21/2024 8 :00 AM EST Missing teeth, acquired Excessive attrition of teeth, limited to enamel Dental calculus PANORAMIC RADIOGRAPHIC IMAGE Routine 10/19/2023 9:00 AM EDT Excessive attrition of teeth, limited to enamel Missing teeth, acquired PERIODIC ORAL EVALUATION - ESTABLISHED PATIENT Routine 10/19/2023 9:00 AM EDT LIPID PANEL, STANDARD Routine 09/14/2023 10:35 AM EDT Primary hypertension ZZZ HISTORICAL HEPATITIS C AB W/REFL TO HCV RNA, QN, PCR Routine 07/01/2021 9:42 AM EDT HM COLONOSCOPY Routine 03/27/2018 3:26 PM EST BITEWINGS - 2 RADIOGRAPHIC IMAGES Routine 09/11/2011 12:00 AM EDT from Last 3 Months or Most Recently Relevant to Health Maintenance Results * POCT HGB A1C (08/26/2024 10:56 AM EDT) Hemoglobin A1C 5.7 4.0 - 6.0 % Blood 08/26/2024 10:5 6 AM EDT us Kayla Doyle MD POINT OF CARE TEST ENTER/EDIT ORDERABLES Final Result * Lipid Panel, Standard (09/14/2023 10:35 AM EDT) Triglycerides 85 <150 mg/dL [facility] Comment:Desirable Triglyceri de: less than 150 mg/dLBorderline High Triglyceride 150-199 mg/dLHigh Triglyceride: 200-499 mg/dLVery High Triglyceride: greater than or equal to 5OO mg/dL Cholesterol 122 <200 mg/dL [facility] Comment:Desirable Cholestero l: less than 200 mg/dLBorderline High Cholesterol: 200-239 mg/dLHigh Cholesterol: greater than 239 mg/dL LDL Cholesterol Calculated 57 <100 mg/dL [facility] Comment:Desirable LDL: less than 100 mg/dLNear Optimal/Above Optimal LDL: 110- 129 mg/dLBorderline High LDL: 130-159 mg/dLHigh LDL: 160-189 mg/dLVery High LDL: greater than or equal to 190 mg/dL HDL Cholesterol 48 >40 mg/dL [facility] Comment:Desirable HDL: great er than 40 mg/dL Note: This HDL assay may give artificially low results in patients with liver disease. Blood Venous blood specimen / Unknown 09/14/2023 10:35 AM EDT 09/14/2023 11:07 AM EDT Kayla Doyle MD LAB BLOOD ORDERABLES Final Res ult [facility] [address] [place] [phone] * (ABNORMAL) HEPATITIS C AB W/REFL TO HCV RNA, QN, PCR (07/01/2021 9:42 AM EDT) HEPATITIS C ANTIBODY REACTIVE( A) NON-REACT [facility] INDEX 23.60(H) <1.00 [facility] Comment: Based on this result, the sample will be tested for HCV RNA by a Nucleic Acid Amplification Test (NAAT) to determine if the patient has a current active infection. 07/01/2021 9:42 AM EDT us Kayla Doyle MD HISTORICAL/NON ORDERABLE LABS Final Result [facility] [address] [place] [address], * Hm Colonoscopy (03/27/2018 3:26 PM EST) us Historical Provider HEALTH MAINTENANCE Final Result from Last 3 Months or Most Recently Relevant to Health Maintenance Insurance [facility] [employer] (O D-SNP) DENTAL [facility] Advance Directives Documents on File Type Date Recorded Patient Idea Man Expl anation Advance Directives and Livin g Will 10/09/2023 Health Care Proxy Care Teams Laborer General Relationship Specialty Start Date End Date Kayla Doyle MD [address] [place] [phone] PCP - General Family Medicine 11/08/20
--- OUTSIDE RECORDS SUMMARY | 2025-01-15 06:18 | XMS_ITS | Patient Health Record ---
Author Organization [facility] Address [address] [place] [address] Care Team Providers Care Screed Person Name Role Phone Michael Yanez Jr Reason For Referral No Information Plan Of Treatment No Information
--- OUTSIDE RECORDS SUMMARY | 2025-01-15 06:18 | XMS_ITS | Encounter Summary ---
Author Organization [employer] Address [address] [place] [address] Care Team Providers Care Photoengraving Retoucher Name Role Phone Kayla Doyle MD Primary Care Provider [phone] Encounter Details Date Type Department Care Team ([facility] st Contact Info) Description 09/20/2023 Orders Only [facility] MEDICINE [address] [place], [place] [phone] Kayla Doyel MD [address] [place], [place] [phone] Social History Tobacco Use Types Packs/Day Years [...] Description 02/13/2025 9:45 AM EST Office Visit [facility] MEDICINE [address] [place] [address] Kayla Doyle MD [address] [place] [address] documented as of this encounter Visit Diagnoses Not on filedocumented in this encounter Care Teams Photoengraving Retoucher Relationship Specialty Start Date End Date Kayla Doyle MD [address] [place] [phone] PCP - General Family Medicine 11/08/20 documented as of this encounter
--- OUTSIDE RECORDS SUMMARY | 2025-01-15 06:18 | XMS_ITS | Encounter Summary ---
Author Organization [employer] Address [address] [facility] [place] [address] Care Team Providers Care Wrapping Checker Name Role Phone Kayla Doyle MD Primary Care Provider [phone] Encounter Details Date Type Department Care Team ([facility] st Contact Info) Description 12/14/2023 Orders Only [facility] MEDICINE [address] [place], [place] [phone] Kayla Doyle MD [address] [place], [place] [phone] Social History Tobacco Use Types Packs/Day Years [...] Description 02/13/2025 9:45 AM EST Office Visit [facility] MEDICINE [address] [place] [address] Kayla Doyle MD [address] [place] [address] documented as of this encounter Visit Diagnoses Not on filedocumented in this encounter Care Teams Wrapping Checker Relationship Specialty Start Date End Date Kayla Doyle MD [address] [place] [phone] PCP - General Family Medicine 11/08/20 documented as of this encounter
--- OUTSIDE RECORDS SUMMARY | 2025-01-15 06:18 | XMS_ITS | Clinical Summary ---
Author Organization [facility] Address [address] [place] [address] [place] [address] Phone Care Team Providers Care K 9 Handler/ Deputy Name Role Phone Kayla Doyle MD Primary [...] Hemoglobin A1C 2023 12/29/2022, 04/12 Influenza Vaccine (#1) 2024 , 01/20/2019, 03/25/2018, Additional history exists Hepatitis B [...] 9.3 8.7 - 10.7 mg/dL eGFR Non-Afr Cameroonian 36 eGFR 41 Hemoglobin A1C 5.6 4.0 - 6.0 Alb/Creat Ratio, Ur 5.00 mg/g Creat Triglycerides 66 40 - 160 Cholesterol 136 0 - 200 HDL 62 35 - 70 MG/DL LDL Calculated 59 0 - 160 mg/dL 04/30/2020 Historical Provider LAB BLOOD ORDERABLES Xiomy l Result from Last 3 Months or Most Recently Relevant to Health Maintenance Insurance [facility] ([id number]) [facility] ([id number]) Care Teams K 9 Handler/ Deputy Relationship Specialty Start Date End Date Kayla Doyle MD PCP - General Demurrage Worker 04/13/21
--- OUTSIDE RECORDS SUMMARY | 2025-01-15 06:18 | XMS_ITS | Encounter Summary ---
Author Organization [employer] Address [address] [facility] 7t [place] [address] Care Team Providers Care Pulpwood Cutter Name Role Phone Kayla Doyle MD Primary Care Provider [phone] Encounter Details Date Type Department Care Team (Late st Contact Info) Description 07/19/2023 Orders Only [facility] [address] [place], [place] [phone] ProviderAlicia MD Social History Tobacco Use Types [...] Description 02/13/2025 9:45 AM EST Office Visit [facility] [address] [place] [address] Kayla Doyle MD [address] [place] [address] Pending Results Name Type Priority Associated Diagnoses [...] EDT) 08/16/2023 11:4 0 AM EDT Narrative [facility] - 08/16/2023 4:32 PM EDT [address] [address] Nuclear Medicine Report Signed Patient: Serafin Steele MR#: [id number] : 1950 Acct:[id number] Age/Sex: 73 / M ADM Date: 08/14/23 Loc: .[facility] 477-[address]: Kt Walker MD Ordering Physician: Kt Walker MD Date of Service: 08/15/23 Procedure(s): NM cardiolite stress test Accession Number(s): [id number] cc: Kayla Doyle; Kt Walker MD Myocardial [...] in OV> 08/16/23 1628 DD/ 1140 TD/TT: Matrix Worker: Procedure Note Donotuseinterpreter, Image - 08/16/2023 [place] [address] Nuclear Medicine Report Signed Patient: Mel Steele#: [id number] : 1Acct:[id number] Age/Sex: 73 / MADM Date: 08/14/23 Loc: [facility] 477-[address]: Kt Walker MD Ordering Physician: Kt Walker MD Date of Service: 08/15/23 Procedure(s): NM cardiolite stress test Accession Number(s): [id number] cc: Kayla Doyle; Kt Walker MD Myocardial [...] in OV> 08/16/23 1628 DD/ 1140 TD/TT: Matrix Worker: [facility] External Provider CV STRE SS PROCEDURES Final Result Performing Organization Address [facility] Co de Phone Number [facility] [address] [place] [address] * (ABNORMAL) High Sensitivity Troponin I (08/14/2023 1:31 PM EDT) TROPONIN I HIGH SENSITIVITY 512.2(HH) <3.5 - 35.0 ng/L [facility] Comment:Critical value for T ROPONIN: Results called to and readback by: ABIMAEL Person calling: OSITO Date: 08/14/23 Time:1358The Wilks high sensitivity Troponin-I results should beused in conjunction with other diagnostic information suchas ECG, clinical observations and information, and patientsymptoms to aid in the diagnosis of [place]. 08/14/2023 1:31 PM EDT 08/14/2023 1:33 PM EDT Generic External Data Provider LAB BLOOD ORDERAB LES Final Result Performing Organization Address [facility] Co de Phone Number [facility] [address] [place] [phone] * Creatine Kinase, Total (08/14/2023 11:35 AM EDT) Creatine Kinase Total 143 38 - 174 U/L [facility] 08/14/2023 11:3 5 AM EDT 08/14/2023 11:38 AM EDT Generic External Data Provider LAB BLOOD ORDERAB LES Final Result Performing Organization Address [facility] Co de Phone Number [facility] [address] [place] [phone] * TSH with Reflex to Free T4 (08/14/2023 11:35 AM EDT) TSH reflex Free T4 1.15 0.32 - 4.0 uIU/mL [facility] 08/14/2023 11:3 5 AM EDT 08/14/2023 11:38 AM EDT Generic External Data Provider LAB BLOOD ORDERAB LES Final Result Performing Organization Address [facility] Co de Phone Number [facility] [address] [place] [phone] * Lipase (08/14/2023 11:35 AM EDT) Pathologist [facility] Lipase 17 8 - 78 U/L [facility] 08/14/2023 11:3 5 AM EDT 08/14/2023 11:38 AM EDT Generic External Data Provider LAB BLOOD ORDERAB LES Final Result Performing Organization Address [facility] de Phone Number [facility] [address] [place] [phone] * Magnesium (08/14/2023 11:35 AM EDT) Pathologist [facility] Magnesium 2.0 1.6 - 2.6 mg/dL [facility] 08/14/2023 11:3 5 AM EDT 08/14/2023 11:38 AM EDT Generic External Data Provider LAB BLOOD ORDERAB LES Final Result Performing Organization Address [facility] de Phone Number [facility] [address] [place] [phone] * (ABNORMAL) Basic Metabolic Panel (08/14/2023 11:35 AM EDT) Pathologist [facility] Sodium 141 135 - 145 mmol/L [facility] Potassium 3.5 3.3 - 5.1 mmol/L [facility] Chloride 103 96 - 108 mmol/L [facility] Carbon Dioxide 28 22 - 29 mmol/L [facility] Anion Gap 14 12 - 20 [facility] Urea Nitrogen (BUN) 21(H) 9 - 16 mg/dL [facility] Creatinine, Serum 1.16 0.5 - 1.4 mg/dL [facility] Creatinine Clr Calc Pharmacy 58.5 [facility] Comment:eGFR (calculated fro m the MDRD study equation) and eCrCl(calculated from the Cockcroft-Gault equation) are based ondifferent parameters and may not yield comparable results.If eCrCl result is absurd, please check patient'sheight/weight. Estimated Glomerular Filt Rate >60 [facility] Comment:NOTE: For -Am erican individuals, multiply the result by 1.210.Chronic Kidney Disease: Estimated GFR < 60 mL/min/1.64m0Ccpkmw Kidney Disease: Estimated GFR < 15 mL/min/1.73m2 Glucose 165(H) 60 - 115 mg/dL [facility] Calcium 9.5 8.4 - 10.2 mg/dL [facility] 08/14/2023 11:3 5 AM EDT 08/14/2023 11:38 AM EDT us Generic External Data Provider LAB BLOOD ORDERAB LES Final Result [facility] [address] [place] [phone] * Hepatic Function Panel (08/14/2023 11:35 AM EDT) Bilirubin, Total 0.5 0.0 - 1.0 mg/dL [facility] Bilirubin, Direct 0.4 0.0 - 0.5 mg/dL [facility] Aspartate Amino Transferase 24 5 - 37 U/L [facility] Alanine Aminotransferase 18 0 - 40 U/L [facility] Total Protein 7.9 6.5 - 8.0 g/dL [facility] Albumin Level 4.5 3.5 - 5.0 g/dL [facility] Alkaline Phosphatase 65 39 - 117 U/L [facility] 08/14/2023 11:3 5 AM EDT 08/14/2023 11:38 AM EDT us Generic External Data Provider LAB BLOOD ORDERAB LES Final Result [facility] [address] [place] [phone] [phone] * (ABNORMAL) Drug Monitoring, Panel 1, Screen, Urine (08/14/2023 11:00 AM EDT) Opiate Screen Urine Not Detected Not Detect [facility] Comment:Opiate cut-off is 30 0 ng/mL.Positive results are unconfirmed and should not be used fornon-medical purposes. Barbiturates, Urine Not Detected Not Detect [facility] Comment:Barbiturate cut-off is 200 ng/mL.Positive results are unconfirmed and should not be used fornon-medical purposes. Phencyclidine Screen Urine Not Detected Not Detect [facility] Comment:Phencyclidine cut-of f is 25 ng/mL.Positive results are unconfirmed and should not be used fornon-medical purposes. Amphetamine Screen Urine Not Detected Not Detect [facility] Comment:Amphetamine cut-off is 1000 ng/mL.Positive results are unconfirmed and should not be used fornon-medical purposes. Benzodiazepines Screen Urine Not Detected Not Detect [facility] Comment:Benzodiazepine cut-o ff is 200 ng/mL.Positive results are unconfirmed and should not be used fornon-medical purposes. Cocaine Screen Urine Not Detected Not Detect [facility] Comment:Cocaine cut-off is 3 00 ng/mL.Positive results are unconfirmed and should not be used fornon-medical purposes. Cannabinoid Screen Urine Not Detected Not Detect [facility] Comment:Cannabinoid cut-off is 50 ng/mL.Positive results are unconfirmed and should not be used fornon-medical purposes. Methadone Screen, Urine Not Detected Not Detect ng/mL [facility] Comment:Methadone cut-off is 300 ng/mL.Positive results are unconfirmed and should not be used fornon-medical purposes. FENTANYL URINE POSITIVE(A) Not Detect [facility] Comment:Fentanyl cut-off is 1 ng/mL.Positive results are unconfirmed and should not be used fornon-medical purposes. Oxycodone Urine Screen Not Detected Not Detect ng/mL [facility] Comment:Oxycodone cut-off is 100 ng/mL.Positive results are unconfirmed and should not be used fornon-medical purposes. Buprenorphine Screen Not Detected Not Detect ng/mL [facility] Comment:Buprenorphine cut-of f is 5 ng/mL.Positive results are unconfirmed and should not be used fornon-medical purposes. 08/14/2023 11:0 0 AM EDT 08/14/2023 11:16 AM EDT us Generic External Data Provider LAB URINE ORDERAB LES Final Result Performing Organization Address [facility] Co de Phone Number [facility] [address] [place] [phone] * CT Head w/o Contrast (08/14/2023 10:35 AM EDT) Anatomical Region Laterality Modality Head, Neck Computed Tomogra phy 08/14/2023 10:3 5 AM EDT Narrative 08/14/2023 12:20 PM EDT [address] [address] [address] Scan Report Signed Patient: Serafin Steele MR#: [id number] : 1950 Acct:[id number] Age/Sex: 73 / M ADM Date: 08/14/23 Loc: HO.ED Attending Dr: Ordering Physician: Aubree Jamison DO Date of Service: 08/14/23 Procedure(s): CT head/brain wo IV con Accession Number(s): [id number] cc: Aubree Jamison DO; Kayla Doyle EXAMINATION: [...] in OV> 08/14/23 1216 DD/ 1035 TD/TT: Matrix Worker: SAGE Procedure Note Donotuseinterpreter, Image - 08/14/[address] [place] [address] [address] Scan Report Signed Patient: Mel Steele#: [id number] : 1950cct:[id number] Age/Sex: 73 / MADM Date: 08/14/23 Loc: HO.ED Attending Dr: Ordering Physician: Aubree Jamison DO Date of Service: 08/14/23 Procedure(s): CT head/brain wo IV con Accession Number(s): [id number] cc: Aubree Jamison DO; Kayla Doyle EXAMINATION: [...] in OV> 08/14/23 1216 DD/ 1035 TD/TT: Matrix Worker: SAGE [facility] External Provider IMG CT PROCEDURES Final Result * XR Chest 1 View (08/14/2023 10:29 AM EDT) Anatomical Region Laterality Modality Chest Radiographic [place] ging 08/14/2023 10:2 9 AM EDT Narrative 08/14/2023 12:10 PM EDT [address] [address] XRay Report Signed Patient: Serafin Steele MR#: [id number] : 1950 Acct:[id number] Age/Sex: 73 / M ADM Date: 08/14/23 Loc: HO.ED Attending Dr: Ordering Physician: Aubree Jamison DO Date of Service: 08/14/23 Procedure(s): XR chest 1V Accession Number(s): [id number] cc: Aubree Jamison DO; Kayla Doyle EXAMINATION: [...] in OV> 08/14/23 1206 DD/ 1029 TD/TT: Matrix Worker: Procedure Note Donotuseinterpreter, Image - 08/14/[address] [address] XRay Report Signed Patient: Mel Steele#: [id number] : 1950cct:[id number] Age/Sex: 73 / MADM Date: 08/14/23 Loc: .ED Attending Dr: Ordering Physician: Aubree Jamison DO Date of Service: 08/14/23 Procedure(s): XR chest 1V Accession Number(s): [id number] cc: Aubree Jamsion DO; Kayla Doyle EXAMINATION: XR CHEST CLINICAL [...] in OV> 08/14/23 1206 DD/ 1029 TD/TT: Matrix Worker: [facility] External Provider IMG XR PROCEDURES Final Result * B Type Natriuretic Peptide (BNP) (08/14/2023 10:17 AM EDT) Pathologist [facility] B Type Natriuretic Peptide 54 <100 pg/mL [facility] Comment:For those patients w ho are being treated with Natrecor(nesiritide, recombinant BNP), BNP testing should beperformed at least two hours post treatment in order toensure that only endogenous levels of BNP are detected. 08/14/2023 10:1 7 AM EDT 08/14/2023 10:18 AM EDT Generic External Data Provider LAB BLOOD ORDERAB LES Final Result Performing Organization Address [facility] Co de Phone Number [facility] [address] [place] [phone] * High Sensitivity Troponin I (08/14/2023 9:51 AM EDT) Pathologist [facility] TROPONIN I HIGH SENSITIVITY 31.7 <3.5 - 35.0 ng/L [facility] Comment:The Wilks high sens itivity Troponin-I results should beused in conjunction with other diagnostic information suchas ECG, clinical observations and information, and patientsymptoms to aid in the diagnosis of [place]. 08/14/2023 9:51 AM EDT 08/14/2023 9:54 AM EDT Generic External Data Provider LAB BLOOD ORDERAB LES Final Result [facility] [address] [place] [phone] * Prothrombin Time-INR (08/14/2023 9:51 AM EDT) [facility] Prothrombin Time 11.6 11.1 - 13.3 SEC [facility] INTERNATIONAL NORM RATIO 1.0 0.9 - 1.1 [facility] Comment:INTERNATIONAL NORMAL IZED RATIO (INR) [...] Provider LAB BLOOD ORDERAB LES Final Result [facility] [address] [place] [phone] * (ABNORMAL) CBC auto differential (08/14/2023 9:51 AM EDT) [facility] White Blood Count 11.5(H) 4.8 - 10.8 X10*3/uL [facility] Red Blood Count 4.96 4.60 - 5.80 X10*6/uL [facility] Hemoglobin 13.0(L) 14.0 - 18.0 g/dl [facility] Hematocrit 40.6(L) 42.0 - 52.0 % [facility] Mean Corpuscular Volume 81.9 80.0 - 98.0 fL [facility] Mean Corpuscular Hemoglobin 26.2(L) 27.0 - 33.0 pg [facility] Mean Corpuscular HGB Conc 32.0 31.0 - 36.0 g/dl [facility] Red Cell Distribution Width 16.8(H) 11.0 - 16.0 % [facility] Platelet Count 174 160 - 400 X10*3/uL [facility] Mean Platelet Volume 10.9 9.4 - 12.4 fL [facility] Neutrophils Percent Auto 74.2(H) 45 - 73 % [facility] Imm Gran Pct Auto 0.4 0.0 - 0.4 % [facility] Lymphocytes Percent Auto 16.3(L) 20 - 40 % [facility] Monocytes Percent Auto 6.2 2 - 11 % [facility] Eosinophils Percent Auto 2.6 0 - 4 % [facility] Basophils Percent Auto 0.3 0 - 2 % [facility] NRBC Pct Auto 0.0 0.0 - 0.2 /100WBC [facility] Neutrophils Absolute Auto 8.6(H) 2.0 - 8.3 x10*3/uL [facility] Imm Gran Abs Auto 0.05(H) 0.00 - 0.03 X10*3/uL [facility] Lymphocytes Absolute Auto 1.9 1.2 - 4.9 X10*3/uL [facility] Monocytes Absolute Auto 0.7 0.1 - 1.2 X10*3/uL [facility] Eosinophils Absolute Auto 0.3 0.0 - 0.4 X10*3/uL [facility] Basophils Absolute Auto 0.0 0.0 - 0.2 X10*3/uL [facility] NRBC Abs Auto 0.000 0.0 - 0.012 X10*3/uL [facility] 08/14/2023 9:51 AM EDT 08/14/2023 9:54 AM EDT us Generic External Data Provider LAB BLOOD ORDERAB LES Final Result [facility] [address] [place] [phone] * Calcium (08/07/2023 6:36 AM EDT) Calcium 9.5 8.4 - 10.2 mg/dL [facility] 08/07/2023 6:36 AM EDT 08/07/2023 6:36 AM EDT us Generic External Data Provider LAB BLOOD ORDERAB LES Final Result Performing Organization Address [facility] Co de Phone Number [facility] [address] [place] [phone] * Creatinine, Serum (08/07/2023 6:36 AM EDT) Creatinine, Serum 1.04 0.5 - 1.4 mg/dL [facility] Estimated Glomerular Filt Rate >60 [facility] Comment:NOTE: For -Am erican individuals, multiply the result by 1.210.Chronic Kidney Disease: Estimated GFR < 60 mL/min/1.64c9Aqzmrx Kidney Disease: Estimated GFR < 15 mL/min/1.73m2 08/07/2023 6:36 AM EDT 08/07/2023 6:36 AM EDT us Generic External Data Provider LAB BLOOD ORDERAB LES Final Result Performing Organization Address [facility] de Phone Number [facility] [address] [place] [phone] * BUN (Blood Urea Nitrogen) (08/07/2023 6:36 AM EDT) Urea Nitrogen (BUN) 12 9 - 16 mg/dL [facility] 08/07/2023 6:36 AM EDT 08/07/2023 6:36 AM EDT Generic External Data Provider LAB BLOOD ORDERAB LES Final Result Performing Organization Address [facility] Co de Phone Number [facility] [address] [place] [phone] * Electrolyte Panel (08/07/2023 6:36 AM EDT) Sodium 142 135 - 145 mmol/L [facility] Potassium 3.8 3.3 - 5.1 mmol/L [facility] Chloride 104 96 - 108 mmol/L [facility] Carbon Dioxide 26 22 - 29 mmol/L [facility] Anion Gap 16 12 - 20 [facility] 08/07/2023 6:36 AM EDT 08/07/2023 6:36 AM EDT Generic External Data Provider LAB BLOOD ORDERAB LES Final Result Performing Organization Address [facility] Co de Phone Number [facility] [address] [place] [phone] * (ABNORMAL) Protein Creatinine Ratio, Urine (08/07/2023 6:35 AM EDT) Creatinine, Urine 347.15 mg/dL [facility] Protein, Total, Random Urine 30(H) <12 mg/dL [facility] Protein/Creati nine Ratio, Ur 0.09 <0.2 [facility] Comment:The spot urine prote in:creatinine ratio may increase to 0.3during normal . 08/07/2023 6:35 AM EDT 08/07/2023 7:58 AM EDT Generic External Data Provider LAB URINE ORDERAB LES Final Result Performing Organization Address [facility]/ZIP Co de Phone Number [facility] [address] [place] [phone] * (ABNORMAL) Urinalysis with Reflex to Microscopic (08/07/2023 6:35 AM EDT) Color Urine Yellow [facility] Appearance Urine Clear [facility] PH 6.0 5.0 - 9.0 [facility] Glucose Urine UA Negative Negative mg/dL [facility] Urine Blood Negative Negative [facility] Specific [place] - Urine >=1.030(H) 1.005 - 1.025 [facility] Urine Protein Negative Neg-Trace mg/dL [facility] Urine Ketones Negative Negative mg/dL [facility] Nitrite Urine Negative Negative [facility] Leukocyte Esterase Urine Negative Negative [facility] 08/07/2023 6:35 AM EDT 08/07/2023 7:58 AM EDT us Generic External Data Provider LAB URINE ORDERAB LES Final Result [facility] [address] [place] [phone] * Colonoscopy (03/27/2018 3:26 PM EST) us Historical Provider HEALTH MAINTENANCE Final Result documented in this encounter Visit Diagnoses Not on filedocumented in this encounter Care Teams Pulpwood Cutter Relationship Specialty Start Date End Date Kayla Doyle MD [address] [place] [address] PCP - General Family Medicine 11/08/20 documented as of this encounter
--- OUTSIDE RECORDS SUMMARY | 2025-01-15 06:18 | XMS_ITS | Encounter Summary ---
Author Organization [employer] Address [address] [facility] 7t [place] [address] Care Team Providers Care Equipment Manager Name Role Phone Kayla Doyle MD Primary Care Provider [phone] Reason for Visit * Reason Comments Med Refill Encounter Details Date Type Department Care Team ([facility] st Contact Info) Description 01/14/2025 Refill [facility] [address] [place], [place] [phone] Kayla Doyle MD [address] [place], [place] [phone] Other hyperlipidemia Social History Tobacco Use Types [...] Description 02/13/2025 9:45 AM EST Office Visit [facility] [address] [place] [phone] Kayla Doyle MD [address] [place] [address] documented as of this encounter Visit Diagnoses Diagnosis Other hyperlipidemia documented in this encounter Additional Health Concerns Assessment Noted Time PHQ-9 Depression Total Score: 0 08/27/19 25 10:56 AM EDT documented as of this encounter Care Teams Equipment Manager Relationship Specialty Start Date End Date Kayla Doyle MD [address] [place] [address] PCP - General Family Medicine 11/08/20 documented as of this encounter
--- OUTSIDE RECORDS SUMMARY | 2025-01-15 06:18 | XMS_ITS | Encounter Summary ---
Author Organization [employer] Address [address] [place] [address] 7t [place] [address] Care Team Providers Care Cable Tv Installer Name Role Phone Kayla Doyle MD Primary Care Provider [phone] Encounter Details Date Type Department Care Team (Late Contact Info) Description 11/14/2022 Abstract [facility] [address] [place], [place] [phone] Kayla Dolye MD [address] [place] [address] [phone] Social History Tobacco Use Types Packs/Day Years [...] Description 02/13/2025 9:45 AM EST Office Visit [facility] [address] [place] [address] [phone] Kayla Doyle MD [address] [place] [address] [phone] documented as of this encounter Visit Diagnoses Not on filedocumented in this encounter Care Teams Cable Tv Installer Relationship Specialty Start Date End Date Kayla Doyle MD [address] [place] [address] PCP - General Family Medicine 11/08/20 documented as of this encounter
--- OUTSIDE RECORDS SUMMARY | 2025-01-15 06:18 | XMS_ITS | Encounter Summary ---
Author Organization [employer] Address [address] [facility] 7t [place] [address] Care Team Providers Care Pharmacy Intake Coordinator Name Role Phone Kayla Doyle MD Primary Care Provider [phone] Reason for Visit * Reason Comments Med Refill Encounter Details Date Type Department Care Team (Late st Contact Info) Description 02/11/2024 Refill [facility] [address] [place], [place] [phone] Kayla Doyle MD [address] [place], [place] [phone] Other hyperlipidemia Social History Tobacco Use Types [...] Description 02/13/2025 9:45 AM EST Office Visit [facility] [address] [place] [phone] Kayla Doyle MD [address] [place] [phone] documented as of this encounter Visit Diagnoses Diagnosis Other hyperlipidemia documented in this encounter Care Teams Pharmacy Intake Coordinator Relationship Specialty Start Date End Date Kayla Doyle MD [address] [place] [phone] PCP - General Family Medicine 11/08/20 documented as of this encounter
[2025-01-15 07:45] LABS: Appearance Urine Clear; Glucose Urine UA Negative (Negative); PH 6.0 (5.0-9.0); Specific Gravity - Urine >= 1.030 (1.005-1.025); UMIC TRIGGER UA YES
[2025-01-15 08:01] LABS: Protein/Creatinine Ratio, Ur 0.12 (<0.2); Total Protein Urine Random 49 mg/dL (<12)
== END 2025-01-15 06:15 | disposition home or self-care (01) ==
LOC: HO.LAB 06:14
PROVIDERS: PCP General Practice; Visit Provider Internal Medicine Nephrology
DX: I12.9 Hypertensive chronic kidney disease with stage 1 through stage 4 chronic kidney disease, or unspecified chronic kidney disease (principal); N18.31 Chronic kidney disease, stage 3a
CPT/HCPCS: 36415; 80051; 81001; 82565; 82570; 84156; 84520

== ENCOUNTER 2025-01-16 06:14 | Outpatient (REF) | payer OTHER, SELFPAY ==
--- OUTSIDE RECORDS SUMMARY | 2025-01-16 06:17 | XMS_ITS | Encounter Summary ---
Author Organization [employer] Address [address] [facility] 7t [place] [address] Care Team Providers Care Artist And Repertoire Manager Name Role Phone Kayla Doyle MD Primary Care Provider [phone] Encounter Details Date Type Department Care Team ([facility] st Contact Info) Description 12/14/2023 Orders Only [facility] [address] [place], [place] [phone] Kayla Doyle MD [address] [place], [place] [phone] Social History Tobacco Use Types Packs/Day Years [...] Description 02/13/2025 9:45 AM EST Office Visit [facility] [address] [place] [address] Kayla Doyle MD [address] [place] [address] documented as of this encounter Visit Diagnoses Not on filedocumented in this encounter Care Teams Artist And Repertoire Manager Relationship Specialty Start Date End Date Kayla Doyle MD [address] [place] [phone] PCP - General Family Medicine 11/08/20 documented as of this encounter
--- OUTSIDE RECORDS SUMMARY | 2025-01-16 06:17 | XMS_ITS | Encounter Summary ---
Author Organization [employer] Address [address] [facility] [address]t [place] [address] Care Team Providers Care Property Management Bookkeeper Name Role Phone Kayla Doyle MD Primary Care Provider [phone] Reason for Visit * Reason Comments Med Refill Encounter Details Date Type Department Care Team (Late st Contact Info) Description 02/11/2024 Refill [facility] [address] [place], [place] [phone] Kayla Doyle MD [address] [place], [place] [phone] Other hyperlipidemia Social History Tobacco Use Types [...] Description 02/13/2025 9:45 AM EST Office Visit [facility] [address] [place] [address] [phone] Kayla Doyle MD [address] [place] [phone] documented as of this encounter Visit Diagnoses Diagnosis Other hyperlipidemia documented in this encounter Care Teams Property Management Bookkeeper Relationship Specialty Start Date End Date Kayla Doyle MD [address] [place] [phone] PCP - General Family Medicine 11/08/20 documented as of this encounter
--- OUTSIDE RECORDS SUMMARY | 2025-01-16 06:17 | XMS_ITS | Encounter Summary ---
Author Organization [employer] Address [address] [facility] 7t [place] [address] Care Team Providers Care Lumber Grader Name Role Phone Kayla Doyle MD Primary Care Provider [phone] Encounter Details Date Type Department Care Team (Late st Contact Info) Description 07/19/2023 Orders Only [facility] [address] [place], [place] [phone] ProviderAlicia MD Social History Tobacco Use Types [...] Description 02/13/2025 9:45 AM EST Office Visit [facility] [address] [place] [address] Kayla Doyle MD [address] [place] [address] Pending Results Name Type Priority Associated Diagnoses [...] EDT) 08/16/2023 11:4 0 AM EDT Narrative [facility] - 08/16/2023 4:32 PM EDT [address] [address] Nuclear Medicine Report Signed Patient: Serafin Steele MR#: [id number] : 1950 Acct:[id number] Age/Sex: 73 / M ADM Date: 08/14/23 Loc: [facility]: Kt Walker MD Ordering Physician: Kt Walker MD Date of Service: 08/15/23 Procedure(s): NM cardiolite stress test Accession Number(s): [id number] cc: Kayla Doyle; Kt Walker MD Myocardial [...] in OV> 08/16/23 1628 DD/ 1140 TD/TT: Physicist Cryogenics: Procedure Note Donotuseinterpreter, Image - 08/16/2023 [place] [address] Nuclear Medicine Report Signed Patient: Mel Steele#: [id number] : 1Acct:[id number] Age/Sex: 73 / MADM Date: 08/14/23 Loc: [facility] 477-[address]: Kt Walker MD Ordering Physician: Kt Walker MD Date of Service: 08/15/23 Procedure(s): NM cardiolite stress test Accession Number(s): [id number] cc: Kayla Doyle; Kt Walker MD Myocardial [...] in OV> 08/16/23 1628 DD/ 1140 TD/TT: Physicist Cryogenics: [facility] External Provider CV STRE SS PROCEDURES Final Result Performing Organization Address [facility] Co de Phone Number [facility] [address] [place] [address] * (ABNORMAL) High Sensitivity Troponin I (08/14/2023 1:31 PM EDT) TROPONIN I HIGH SENSITIVITY 512.2(HH) <3.5 - 35.0 ng/L [facility] Comment:Critical value for T ROPONIN: Results called to and readback by: ABIMAEL Person calling: OSITO Date: 08/14/23 Time:1358The Wilks high sensitivity Troponin-I results should beused in conjunction with other diagnostic information suchas ECG, clinical observations and information, and patientsymptoms to aid in the diagnosis of [place]. 08/14/2023 1:31 PM EDT 08/14/2023 1:33 PM EDT Generic External Data Provider LAB BLOOD ORDERAB LES Final Result Performing Organization Address [facility] Co de Phone Number [facility] [address] [place] [phone] * Creatine Kinase, Total (08/14/2023 11:35 AM EDT) Creatine Kinase Total 143 38 - 174 U/L [facility] 08/14/2023 11:3 5 AM EDT 08/14/2023 11:38 AM EDT Generic External Data Provider LAB BLOOD ORDERAB LES Final Result Performing Organization Address [facility] Co de Phone Number [facility] [address] [place] [phone] * TSH with Reflex to Free T4 (08/14/2023 11:35 AM EDT) TSH reflex Free T4 1.15 0.32 - 4.0 uIU/mL [facility] 08/14/2023 11:3 5 AM EDT 08/14/2023 11:38 AM EDT Generic External Data Provider LAB BLOOD ORDERAB LES Final Result Performing Organization Address [facility] Co de Phone Number [facility] [address] [place] [phone] * Lipase (08/14/2023 11:35 AM EDT) Pathologist [facility] Lipase 17 8 - 78 U/L [facility] 08/14/2023 11:3 5 AM EDT 08/14/2023 11:38 AM EDT Generic External Data Provider LAB BLOOD ORDERAB LES Final Result Performing Organization Address [facility] de Phone Number [facility] [address] [place] [phone] * Magnesium (08/14/2023 11:35 AM EDT) Pathologist [facility] Magnesium 2.0 1.6 - 2.6 mg/dL [facility] 08/14/2023 11:3 5 AM EDT 08/14/2023 11:38 AM EDT Generic External Data Provider LAB BLOOD ORDERAB LES Final Result Performing Organization Address [facility] de Phone Number [facility] [address] [place] [phone] * (ABNORMAL) Basic Metabolic Panel (08/14/2023 11:35 AM EDT) Pathologist [facility] Sodium 141 135 - 145 mmol/L [facility] Potassium 3.5 3.3 - 5.1 mmol/L [facility] Chloride 103 96 - 108 mmol/L [facility] Carbon Dioxide 28 22 - 29 mmol/L [facility] Anion Gap 14 12 - 20 [facility] Urea Nitrogen (BUN) 21(H) 9 - 16 mg/dL [facility] Creatinine, Serum 1.16 0.5 - 1.4 mg/dL [facility] Creatinine Clr Calc Pharmacy 58.5 [facility] Comment:eGFR (calculated fro m the MDRD study equation) and eCrCl(calculated from the Cockcroft-Gault equation) are based ondifferent parameters and may not yield comparable results.If eCrCl result is absurd, please check patient'sheight/weight. Estimated Glomerular Filt Rate >60 [facility] Comment:NOTE: For -Am erican individuals, multiply the result by 1.210.Chronic Kidney Disease: Estimated GFR < 60 mL/min/1.52s8Azuggl Kidney Disease: Estimated GFR < 15 mL/min/1.73m2 Glucose 165(H) 60 - 115 mg/dL [facility] Calcium 9.5 8.4 - 10.2 mg/dL [facility] 08/14/2023 11:3 5 AM EDT 08/14/2023 11:38 AM EDT us Generic External Data Provider LAB BLOOD ORDERAB LES Final Result [facility] [address] [place] [phone] * Hepatic Function Panel (08/14/2023 11:35 AM EDT) Bilirubin, Total 0.5 0.0 - 1.0 mg/dL [facility] Bilirubin, Direct 0.4 0.0 - 0.5 mg/dL [facility] Aspartate Amino Transferase 24 5 - 37 U/L [facility] Alanine Aminotransferase 18 0 - 40 U/L [facility] Total Protein 7.9 6.5 - 8.0 g/dL [facility] Albumin Level 4.5 3.5 - 5.0 g/dL [facility] Alkaline Phosphatase 65 39 - 117 U/L [facility] 08/14/2023 11:3 5 AM EDT 08/14/2023 11:38 AM EDT us Generic External Data Provider LAB BLOOD ORDERAB LES Final Result [facility] [address] [place] [phone] * (ABNORMAL) Drug Monitoring, Panel 1, Screen, Urine (08/14/2023 11:00 AM EDT) Opiate Screen Urine Not Detected Not Detect [facility] Comment:Opiate cut-off is 30 0 ng/mL.Positive results are unconfirmed and should not be used fornon-medical purposes. Barbiturates, Urine Not Detected Not Detect [facility] Comment:Barbiturate cut-off is 200 ng/mL.Positive results are unconfirmed and should not be used fornon-medical purposes. Phencyclidine Screen Urine Not Detected Not Detect [facility] Comment:Phencyclidine cut-of f is 25 ng/mL.Positive results are unconfirmed and should not be used fornon-medical purposes. Amphetamine Screen Urine Not Detected Not Detect [facility] Comment:Amphetamine cut-off is 1000 ng/mL.Positive results are unconfirmed and should not be used fornon-medical purposes. Benzodiazepines Screen Urine Not Detected Not Detect [facility] Comment:Benzodiazepine cut-o ff is 200 ng/mL.Positive results are unconfirmed and should not be used fornon-medical purposes. Cocaine Screen Urine Not Detected Not Detect [facility] Comment:Cocaine cut-off is 3 00 ng/mL.Positive results are unconfirmed and should not be used fornon-medical purposes. Cannabinoid Screen Urine Not Detected Not Detect [facility] Comment:Cannabinoid cut-off is 50 ng/mL.Positive results are unconfirmed and should not be used fornon-medical purposes. Methadone Screen, Urine Not Detected Not Detect ng/mL [facility] Comment:Methadone cut-off is 300 ng/mL.Positive results are unconfirmed and should not be used fornon-medical purposes. FENTANYL URINE POSITIVE(A) Not Detect [facility] Comment:Fentanyl cut-off is 1 ng/mL.Positive results are unconfirmed and should not be used fornon-medical purposes. Oxycodone Urine Screen Not Detected Not Detect ng/mL [facility] Comment:Oxycodone cut-off is 100 ng/mL.Positive results are unconfirmed and should not be used fornon-medical purposes. Buprenorphine Screen Not Detected Not Detect ng/mL [facility] Comment:Buprenorphine cut-of f is 5 ng/mL.Positive results are unconfirmed and should not be used fornon-medical purposes. 08/14/2023 11:0 0 AM EDT 08/14/2023 11:16 AM EDT us Generic External Data Provider LAB URINE ORDERAB LES Final Result Performing Organization Address City/State/[place] Co de Phone Number [facility] [address] [place] [phone] * CT Head w/o Contrast (08/14/2023 10:35 AM EDT) Anatomical Region Laterality Modality Head, Neck Computed Tomogra phy 08/14/2023 10:3 5 AM EDT Narrative 08/14/2023 12:20 PM EDT [address] [address] [address] Scan Report Signed Patient: Serafin Steele MR#: [id number] : 1950 Acct:[id number] Age/Sex: 73 / M ADM Date: 08/14/23 Loc: HO.ED Attending Dr: Ordering Physician: Aubree Jamison DO Date of Service: 08/14/23 Procedure(s): CT head/brain wo IV con Accession Number(s): [id number] cc: Aubree Jamison DO; Kayla Doyle EXAMINATION: [...] in OV> 08/14/23 1216 DD/ 1035 TD/TT: Physicist Cryogenics: SAGE Procedure Note Donotuseinterpreter, Image - 08/14/[address] [place] [address] [address] Scan Report Signed Patient: Mel Steele#: [id number] : 1950cct:[id number] Age/Sex: 73 / MADM Date: 08/14/23 Loc: HO.ED Attending Dr: Ordering Physician: Aubree Jamison DO Date of Service: 08/14/23 Procedure(s): CT head/brain wo IV con Accession Number(s): [id number] cc: Aubree Jamison DO; Kayla Doyle EXAMINATION: [...] in OV> 08/14/23 1216 DD/ 1035 TD/TT: Physicist Cryogenics: SAGE [facility] External Provider IMG CT PROCEDURES Final Result * XR Chest 1 View (08/14/2023 10:29 AM EDT) Anatomical Region Laterality Modality Chest Radiographic Charlotte ging 08/14/2023 10:2 9 AM EDT Narrative 08/14/2023 12:10 PM EDT [address] [address] XRay Report Signed Patient: Serafin Steele MR#: [id number] : 1950 Acct:[id number] Age/Sex: 73 / M ADM Date: 08/14/23 Loc: HO.ED Attending Dr: Ordering Physician: Aubree Jamison DO Date of Service: 08/14/23 Procedure(s): XR chest 1V Accession Number(s): [id number] cc: Aubree Jamison DO; Kayla Doyle EXAMINATION: [...] in OV> 08/14/23 1206 DD/ 1029 TD/TT: Physicist Cryogenics: Procedure Note Donotuseinterpreter, Image - 08/14/[address] [address] XRay Report Signed Patient: Mel Steele#: [id number] : 1950cct:[id number] Age/Sex: 73 / MADM Date: 08/14/23 Loc: .ED Attending Dr: Ordering Physician: Aubree Jamison DO Date of Service: 08/14/23 Procedure(s): XR chest 1V Accession Number(s): [id number] cc: Aubree Jamison DO; Kayla Doyle EXAMINATION: [...] in OV> 08/14/23 1206 DD/ 1029 TD/TT: Physicist Cryogenics: [facility] External Provider IMG XR PROCEDURES Final Result * B Type Natriuretic Peptide (BNP) (08/14/2023 10:17 AM EDT) Pathologist [facility] B Type Natriuretic Peptide 54 <100 pg/mL [facility] Comment:For those patients w ho are being treated with Natrecor(nesiritide, recombinant BNP), BNP testing should beperformed at least two hours post treatment in order toensure that only endogenous levels of BNP are detected. 08/14/2023 10:1 7 AM EDT 08/14/2023 10:18 AM EDT Generic External Data Provider LAB BLOOD ORDERAB LES Final Result Performing Organization Address [facility] Co de Phone Number [facility] [address] [place] [phone] * High Sensitivity Troponin I (08/14/2023 9:51 AM EDT) Pathologist [facility] TROPONIN I HIGH SENSITIVITY 31.7 <3.5 - 35.0 ng/L [facility] Comment:The Wilks high sens itivity Troponin-I results should beused in conjunction with other diagnostic information suchas ECG, clinical observations and information, and patientsymptoms to aid in the diagnosis of [place]. 08/14/2023 9:51 AM EDT 08/14/2023 9:54 AM EDT Generic External Data Provider LAB BLOOD ORDERAB LES Final Result [facility] [address] [place] [phone] * Prothrombin Time-INR (08/14/2023 9:51 AM EDT) [facility] Prothrombin Time 11.6 11.1 - 13.3 SEC [facility] INTERNATIONAL NORM RATIO 1.0 0.9 - 1.1 [facility] Comment:INTERNATIONAL NORMAL IZED RATIO (INR) [...] Provider LAB BLOOD ORDERAB LES Final Result [facility] [address] [place] [phone] * (ABNORMAL) CBC auto differential (08/14/2023 9:51 AM EDT) [facility] White Blood Count 11.5(H) 4.8 - 10.8 X10*3/uL [facility] Red Blood Count 4.96 4.60 - 5.80 X10*6/uL [facility] Hemoglobin 13.0(L) 14.0 - 18.0 g/dl [facility] Hematocrit 40.6(L) 42.0 - 52.0 % [facility] Mean Corpuscular Volume 81.9 80.0 - 98.0 fL [facility] Mean Corpuscular Hemoglobin 26.2(L) 27.0 - 33.0 pg [facility] Mean Corpuscular HGB Conc 32.0 31.0 - 36.0 g/dl [facility] Red Cell Distribution Width 16.8(H) 11.0 - 16.0 % [facility] Platelet Count 174 160 - 400 X10*3/uL [facility] Mean Platelet Volume 10.9 9.4 - 12.4 fL [facility] Neutrophils Percent Auto 74.2(H) 45 - 73 % [facility] Imm Gran Pct Auto 0.4 0.0 - 0.4 % [facility] Lymphocytes Percent Auto 16.3(L) 20 - 40 % [facility] Monocytes Percent Auto 6.2 2 - 11 % [facility] Eosinophils Percent Auto 2.6 0 - 4 % [facility] Basophils Percent Auto 0.3 0 - 2 % [facility] NRBC Pct Auto 0.0 0.0 - 0.2 /100WBC [facility] Neutrophils Absolute Auto 8.6(H) 2.0 - 8.3 x10*3/uL [facility] Imm Gran Abs Auto 0.05(H) 0.00 - 0.03 X10*3/uL [facility] Lymphocytes Absolute Auto 1.9 1.2 - 4.9 X10*3/uL [facility] Monocytes Absolute Auto 0.7 0.1 - 1.2 X10*3/uL [facility] Eosinophils Absolute Auto 0.3 0.0 - 0.4 X10*3/uL [facility] Basophils Absolute Auto 0.0 0.0 - 0.2 X10*3/uL [facility] NRBC Abs Auto 0.000 0.0 - 0.012 X10*3/uL [facility] 08/14/2023 9:51 AM EDT 08/14/2023 9:54 AM EDT us Generic External Data Provider LAB BLOOD ORDERAB LES Final Result [facility] [address] [place] [phone] * Calcium (08/07/2023 6:36 AM EDT) Calcium 9.5 8.4 - 10.2 mg/dL [facility] 08/07/2023 6:36 AM EDT 08/07/2023 6:36 AM EDT us Generic External Data Provider LAB BLOOD ORDERAB LES Final Result Performing Organization Address [facility] Co de Phone Number [facility] [address] [place] [phone] * Creatinine, Serum (08/07/2023 6:36 AM EDT) Creatinine, Serum 1.04 0.5 - 1.4 mg/dL [facility] Estimated Glomerular Filt Rate >60 [facility] Comment:NOTE: For -Am erican individuals, multiply the result by 1.210.Chronic Kidney Disease: Estimated GFR < 60 mL/min/1.79n5Kazaif Kidney Disease: Estimated GFR < 15 mL/min/1.73m2 08/07/2023 6:36 AM EDT 08/07/2023 6:36 AM EDT us Generic External Data Provider LAB BLOOD ORDERAB LES Final Result Performing Organization Address [facility] de Phone Number [facility] [address] [place] [phone] * BUN (Blood Urea Nitrogen) (08/07/2023 6:36 AM EDT) Urea Nitrogen (BUN) 12 9 - 16 mg/dL [facility] 08/07/2023 6:36 AM EDT 08/07/2023 6:36 AM EDT Generic External Data Provider LAB BLOOD ORDERAB LES Final Result Performing Organization Address [facility] Co de Phone Number [facility] [address] [place] [phone] * Electrolyte Panel (08/07/2023 6:36 AM EDT) Sodium 142 135 - 145 mmol/L [facility] Potassium 3.8 3.3 - 5.1 mmol/L [facility] Chloride 104 96 - 108 mmol/L [facility] Carbon Dioxide 26 22 - 29 mmol/L [facility] Anion Gap 16 12 - 20 [facility] 08/07/2023 6:36 AM EDT 08/07/2023 6:36 AM EDT Generic External Data Provider LAB BLOOD ORDERAB LES Final Result Performing Organization Address [facility] Co de Phone Number [facility] [address] [place] [phone] * (ABNORMAL) Protein Creatinine Ratio, Urine (08/07/2023 6:35 AM EDT) Creatinine, Urine 347.15 mg/dL [facility] Protein, Total, Random Urine 30(H) <12 mg/dL [facility] Protein/Creati nine Ratio, Ur 0.09 <0.2 [facility] Comment:The spot urine prote in:creatinine ratio may increase to 0.3during normal . 08/07/2023 6:35 AM EDT 08/07/2023 7:58 AM EDT Generic External Data Provider LAB URINE ORDERAB LES Final Result Performing Organization Address [facility]/ZIP Co de Phone Number [facility] [address] [place] [phone] * (ABNORMAL) Urinalysis with Reflex to Microscopic (08/07/2023 6:35 AM EDT) Color Urine Yellow [facility] Appearance Urine Clear [facility] PH 6.0 5.0 - 9.0 [facility] Glucose Urine UA Negative Negative mg/dL [facility] Urine Blood Negative Negative [facility] Specific [place] - Urine >=1.030(H) 1.005 - 1.025 [facility] Urine Protein Negative Neg-Trace mg/dL [facility] Urine Ketones Negative Negative mg/dL [facility] Nitrite Urine Negative Negative [facility] Leukocyte Esterase Urine Negative Negative [facility] 08/07/2023 6:35 AM EDT 08/07/2023 7:58 AM EDT us Generic External Data Provider LAB URINE ORDERAB LES Final Result [facility] [address] [place] [phone] * Colonoscopy (03/27/2018 3:26 PM EST) us Historical Provider HEALTH MAINTENANCE Final Result documented in this encounter Visit Diagnoses Not on filedocumented in this encounter Care Teams Lumber Grader Relationship Specialty Start Date End Date Kayla Doyle MD [address] [place] [address] PCP - General Family Medicine 11/08/20 documented as of this encounter
--- OUTSIDE RECORDS SUMMARY | 2025-01-16 06:17 | XMS_ITS | Encounter Summary ---
Author Organization [employer] Address [address] [facility] [address]t [place] [address] Care Team Providers Care Senior Reactor Operator Name Role Phone Kayla Doyle MD Primary Care Provider [phone] Reason for Visit * Reason Comments Med Refill Encounter Details Date Type Department Care Team ([facility] st Contact Info) Description 01/14/2025 Refill [facility] [address] [place], [place] [phone] Kayla Doyle MD [address] [place], [place] [phone] Other hyperlipidemia Social History Tobacco Use Types [...] Description 02/13/2025 9:45 AM EST Office Visit [facility] [address] [place] [phone] Kayla Doyle MD [address] [place] [address] documented as of this encounter Visit Diagnoses Diagnosis Other hyperlipidemia documented in this encounter Additional Health Concerns Assessment Noted Time PHQ-9 Depression Total Score: 0 08/27/19 25 10:56 AM EDT documented as of this encounter Care Teams Senior Reactor Operator Relationship Specialty Start Date End Date Kayla Doyle MD [address] [place] [address] PCP - General Family Medicine 11/08/20 documented as of this encounter
--- OUTSIDE RECORDS SUMMARY | 2025-01-16 06:17 | XMS_ITS | Clinical Summary ---
Author Organization [facility] Address [address] [address] [place] [address] Phone Care Team Providers Care Merchandise Deliverer Name Role Phone Kayla Doyle MD Primary [...] 9.3 8.7 - 10.7 mg/dL eGFR Non-Afr [facility] 36 eGFR 41 Hemoglobin A1C 5.6 4.0 - 6.0 Alb/Creat Ratio, Ur 5.00 mg/g Creat Triglycerides 66 40 - 160 Cholesterol 136 0 - 200 HDL 62 35 - 70 MG/DL LDL Calculated 59 0 - 160 mg/dL 04/30/2020 Historical Provider LAB BLOOD ORDERABLES Xiomy l Result from Last 3 Months or Most Recently Relevant to Health Maintenance Insurance [facility] ([id number]) [facility] ([id number]) Care Teams Merchandise Deliverer Relationship Specialty Start Date End Date Kayla Doyle MD PCP - General It Telecom Technician 04/13/21
--- OUTSIDE RECORDS SUMMARY | 2025-01-16 06:17 | XMS_ITS | Encounter Summary ---
Author Organization [employer] Address [address] [place] [address] 7t [place] [address] Care Team Providers Care Tape Edge Machine Operator Name Role Phone Kayla Doyle MD Primary Care Provider Encounter Details Date Type Department Care Team (Late Contact Info) Description 11/14/2022 Abstract [facility] [address] [place], [place] [phone] Kayla Doyle MD [address] [place] [address] [phone] Social History Tobacco Use Types Packs/Day Years [...] Description 02/13/2025 9:45 AM EST Office Visit [facility] [address] [place] [address] [phone] Kayla Doyle MD [address] [place] [address] [phone] documented as of this encounter Visit Diagnoses Not on filedocumented in this encounter Care Teams Tape Edge Machine Operator Relationship Specialty Start Date End Date Kayla Doyle MD [address] [place] [address] PCP - General Family Medicine 11/08/20 documented as of this encounter
--- OUTSIDE RECORDS SUMMARY | 2025-01-16 06:17 | XMS_ITS | Patient Health Record ---
Author Organization [facility] Address [address] [place] [address] Care Team Providers Care Floor Steward/Stewardess Name Role Phone Michael Yanez Jr Reason For Referral No Information Plan Of Treatment No Information
--- OUTSIDE RECORDS SUMMARY | 2025-01-16 06:17 | XMS_ITS | Clinical Summary ---
Author Organization [employer] Address [address] [place] [address] 7t [place] [address] Care Team Providers Care Assistant Floor Covering Printer Name Role Phone Kayla Doyle MD Primary Care Provider [phone] Allergies Active Allergy Reactions Criticality Noted Date [...] EST): Stable disease Continue to f/u with natural science manager q 6 months Assessment & Plan (09/19/2023 [...] Type Department Care Team Description 01/14/2025 Refill [facility] [address] [place] [address] Kayla Doyle MD Other hyperlipidemia 11/15/2024 Refill [facility] [address] [place] [address] Kayla Doyle MD 10/23/2024 Refill [facility] [address] [place] [address] Kayla Doyle MD Constipation, unspecified constipation type 10/16/2024 Refill [facility] [address] [place] [address] Kayla Doyle MD from Last 3 Months [...] AM EST Office Visit [facility] [address] [place] [address] Kayla Doyle MD [address] [place] [address] Health Maintenance Due Date Last Done Comments [...] Procedure Name Priority Date/Time Associated Diagnosis Comments PROTEIN CREATININE RATIO, URINE Routine 01/15/2025 6:28 AM EST URINALYSIS, COMPLETE Routine 01/15/2025 6:28 AM EST POCT GLYCATED HEMOGLOBIN, TOTAL Routine 08/26/2024 10:56 AM EDT Type 2 diabetes mellitus with stage 3a chronic kidney disease, without long-term current use of insulin ([facility]) PROPHYLAXIS - ADULT Routine 04/21/2024 8 :00 [...] Relevant to Health Maintenance Results * (ABNORMAL) Protein Creatinine Ratio, Urine (01/15/2025 6:28 AM EST) Creatinine, Urine 412.55 mg/dL [facility] Protein, Total, Random Urine 49(H) <12 mg/dL [facility] Protein/Creati nine Ratio, Ur 0.12 <0.2 [facility] Comment:The spot urine prote in:creatinine ratio may increase to 0.3during normal . 01/15/2025 6:28 AM EST 01/15/2025 7:15 AM EST us Generic External Data Provider LAB URINE ORDERAB LES Final Result Performing Organization Address [facility] de Phone Number [facility] [address] [place] [address] [phone] * (ABNORMAL) Urinalysis Complete (01/15/2025 6:28 AM EST) Color Urine Dark Yellow [facility] Appearance Urine Clear [facility] PH 6.0 5.0 - 9.0 [facility] Glucose Urine UA Negative Negative mg/dL [facility] Urine Blood Negative Negative [facility] Specific [place] - Urine >=1.030(H) 1.005 - 1.025 [facility] Urine Protein 30 (1+)(A) Neg-Trace mg/dL [facility] Urine Ketones Trace Negative mg/dL [facility] Nitrite Urine Negative Negative [facility] Leukocyte Esterase Urine Negative Negative [facility] RBC Urine 0-2 0 - 2 /HPF [facility] Urine WBC 0-5 0 - 5 /HPF [facility] Urine Squamous Epithelial Cell 0-2 0 - 2 /HPF [facility] Urine Bacteria None Seen None Seen [facility] Hyaline Casts, Urine 0-2 0 - 2 /LPF [facility] 01/15/2025 6:28 AM EST 01/15/2025 7:15 AM EST Generic External Data Provider LAB URINE ORDERAB LES Final Result Performing Organization Address [facility]/ZIP Co de Phone Number [facility] [address] [place] [address] [phone] * POCT HGB A1C (08/26/2024 10:56 AM EDT) Hemoglobin A1C 5.7 4.0 - 6.0 % Blood 08/26/2024 10:5 6 AM EDT Kayla Doyle MD POINT OF CARE TEST ENTER/EDIT ORDERABLES Final Result * Lipid Panel, Standard (09/14/2023 10:35 AM EDT) Triglycerides 85 <150 mg/dL [facility] Comment:Desirable Triglyceri de: less than 150 mg/dLBorderline High Triglyceride 150-199 mg/dLHigh Triglyceride: 200-499 mg/dLVery High Triglyceride: greater than or equal to 5OO mg/dL Cholesterol 122 <200 mg/dL [facility] Comment:Desirable Cholestero l: less than 200 mg/dLBorderline High Cholesterol: 200-239 mg/dLHigh Cholesterol: greater than 239 mg/dL LDL Cholesterol Calculated 57 <100 mg/dL [facility] Comment:Desirable LDL: less than 100 mg/dLNear Optimal/Above Optimal LDL: 110- 129 mg/dLBorderline High LDL: 130-159 mg/dLHigh LDL: 160-189 mg/dLVery High LDL: greater than or equal to 190 mg/dL HDL Cholesterol 48 >40 mg/dL [facility] Comment:Desirable HDL: great er than 40 mg/dL Note: This HDL assay may give artificially low results in patients with liver disease. Blood Venous blood specimen / Unknown 09/14/2023 10:35 AM EDT 09/14/2023 11:07 AM EDT Kayla Doyle MD LAB BLOOD ORDERABLES Final Res ult Performing Organization Address City/[facility]/ZIP Co de Phone Number [facility] [address] [place] [address] [phone] * (ABNORMAL) HEPATITIS C AB W/REFL TO HCV RNA, QN, PCR (07/01/2021 9:42 AM EDT) HEPATITIS C ANTIBODY REACTIVE( A) NON-REACT [facility] INDEX 23.60(H) <1.00 [facility] Comment: Based on this result, the sample will be tested for HCV RNA by a Nucleic Acid Amplification Test (NAAT) to determine if the patient has a current active infection. 07/01/2021 9:42 AM EDT Kayla Doyle MD HISTORICAL/NON ORDERABLE LABS Final Result [facility] [address] [place] [address], * Hm Colonoscopy (03/27/2018 3:26 PM EST) Historical Provider HEALTH MAINTENANCE Final Result from Last 3 Months or Most Recently Relevant to Health Maintenance Insurance [facility] OPT[facility] (O D-SNP) [place] [id number] [facility] [address] [place] [phone] [place] [phone] Advance Directives Documents on File Type Date Recorded Patient Tub Washer Expl anation Advance Directives and Livin g Will 10/09/2023 Health Care Proxy Care Teams Assistant Floor Covering Printer Relationship Specialty Start Date End Date Kayla Doyle MD [address] [place] [phone] PCP - General Family Medicine 11/08/20
--- OUTSIDE RECORDS SUMMARY | 2025-01-16 06:17 | XMS_ITS | Encounter Summary ---
Author Organization [employer] Address [address] [facility] 7t [place] [address] Care Team Providers Care Accounting Office Manager Name Role Phone Kayla Doyle MD Primary Care Provider Encounter Details Date Type Department Care Team ([facility] st Contact Info) Description 09/20/2023 Orders Only [facility] [address] [place], [place] [phone] Kayla Doyle MD [address] [place], [place] [phone] Social History Tobacco Use Types Packs/Day Years [...] 02/13/2025 9:45 AM EST Office Visit [facility] [address] [place] [address] Kayla Doyle MD [address] [place] [address] documented as of this encounter Visit Diagnoses Not on filedocumented in this encounter Care Teams Accounting Office Manager Relationship Specialty Start Date End Date Kayla Doyle MD [address] [place] [phone] PCP - General Family Medicine 11/08/20 documented as of this encounter
[2025-01-16 07:40] LABS: Appearance Urine Clear; Glucose Urine UA Negative (Negative); PH 8.0 (5.0-9.0); Specific Gravity - Urine 1.020 (1.005-1.025)
== END 2025-01-16 06:15 | disposition home or self-care (01) ==
LOC: HO.LAB 06:14
PROVIDERS: PCP General Practice; Visit Provider Internal Medicine Nephrology
DX: I12.9 Hypertensive chronic kidney disease with stage 1 through stage 4 chronic kidney disease, or unspecified chronic kidney disease (principal); N18.31 Chronic kidney disease, stage 3a
CPT/HCPCS: 36415; 80051; 81003; 82565; 84520

== ENCOUNTER 2025-01-19 06:19 | Outpatient (REF) | payer OTHER, SELFPAY ==
--- OUTSIDE RECORDS SUMMARY | 2025-01-19 06:22 | XMS_ITS | Clinical Summary ---
Author Organization [employer] Address [address] [place] [address] 7t [place] [address] Care Team Providers Care Manager Field Services Name Role Phone Kayla Doyle MD Primary Care Provider [phone] Allergies Active Allergy Reactions Criticality Noted Date [...] EST): Stable disease Continue to f/u with forms designer q 6 months Assessment & Plan (09/19/2023 [...] Type Department Care Team Description 01/14/2025 Refill [facility] [address] [place] [address] Kayla Doyle MD Other hyperlipidemia 11/15/2024 Refill [facility] [address] [place] [address] Kayla Doyle MD 10/23/2024 Refill [facility] [address] [place] [address] Kayla Doyle MD Constipation, unspecified constipation type from Last 3 Months Immunizations Immunization Administration [...] Description 02/13/2025 9:45 AM EST Office Visit [facility] [address] [place] [address] Kayla Doyle MD [address] [place] [address] Health Maintenance Due Date Last Done Comments CT Colonography 1950 FIT DNA/Cologuard 1950 FIT 1950 FOBT 1950 Sigmoidoscopy 1950 Alcohol/Substance Use Screening 1962 Dental X-Ray: Bitewings 09/11/2012 09/11/2011, 09/06 Dental Oral Exam 04/21/2024 10/19/2023, 04/2011, 09/06/2010 Lipid Panel 09/13/2024 09/14/2023, 04/, 03/02/2021, Additional history exists Dental Prophylaxis 10/20/2024 [...] Procedure Name Priority Date/Time Associated Diagnosis Comments URINALYSIS WITH REFLEX TO MICROSCOPIC Routine 01/16/2025 6:22 AM EST PROTEIN CREATININE RATIO, URINE Routine 01/15/2025 6:28 AM EST URINALYSIS, COMPLETE Routine 01/15/2025 6:28 AM EST POCT GLYCATED HEMOGLOBIN, TOTAL Routine 08/26/2024 10:56 AM EDT Type 2 diabetes mellitus with stage 3a chronic kidney disease, without long-term current use of insulin ([facility]) PROPHYLAXIS - ADULT Routine 04/21/2024 8 :00 [...] Recently Relevant to Health Maintenance Results * Urinalysis with Reflex to Microscopic (01/16/2025 6:22 AM EST) Color Urine [facility] Appearance Urine Clear [facility] PH 8.0 5.0 - 9.0 [facility] Glucose Urine UA Negative Negative mg/dL [facility] Urine Blood Negative Negative [facility] Specific [place] - Urine 1.020 1.005 - 1.025 [facility] Urine Protein Trace Neg-Trace mg/dL [facility] Urine Ketones Negative Negative mg/dL [facility] Nitrite Urine Negative Negative [facility] Leukocyte Esterase Urine Negative Negative [facility] 01/16/2025 6:22 AM EST 01/16/2025 7:11 AM EST Generic External Data Provider LAB URINE ORDERAB LES Final Result Performing Organization Address [facility] Co de Phone Number [facility] [address] [place] [phone] * (ABNORMAL) Protein Creatinine Ratio, Urine (01/15/2025 6:28 AM EST) Creatinine, Urine 412.55 mg/dL [facility] Protein, Total, Random Urine 49(H) <12 mg/dL [facility] Protein/Creati nine Ratio, Ur 0.12 <0.2 [facility] Comment:The spot urine prote in:creatinine ratio may increase to 0.3during normal . 01/15/2025 6:28 AM EST 01/15/2025 7:15 AM EST us Generic External Data Provider LAB URINE ORDERAB LES Final Result Performing Organization Address [facility]/ZIP Co de Phone Number [facility] [address] [place] [phone] * (ABNORMAL) Urinalysis Complete (01/15/2025 6:28 AM EST) Color Urine Dark Yellow [facility] Appearance Urine Clear [facility] PH 6.0 5.0 - 9.0 [facility] Glucose Urine UA Negative Negative mg/dL [facility] Urine Blood Negative Negative [facility] Specific [place] - Urine >=1.030(H) 1.005 - 1.025 [facility] Urine Protein 30 (1+)(A) Neg-Trace mg/dL [facility] Urine Ketones Trace Negative mg/dL [facility] Nitrite Urine Negative Negative [facility] Leukocyte Esterase Urine Negative Negative [facility] RBC Urine 0-2 0 - 2 /HPF [facility] Urine WBC 0-5 0 - 5 /HPF [facility] Urine Squamous Epithelial Cell 0-2 0 - 2 /HPF [facility] Urine Bacteria None Seen None Seen [facility] Hyaline Casts, Urine 0-2 0 - 2 /LPF [facility] 01/15/2025 6:28 AM EST 01/15/2025 7:15 AM EST us Generic External Data Provider LAB URINE ORDERAB LES Final Result [facility] [address] [place] [phone] * POCT HGB A1C (08/26/2024 10:56 AM EDT) Hemoglobin A1C 5.7 4.0 - 6.0 % Blood 08/26/2024 10:5 6 AM EDT us Kayla Doyle MD POINT OF CARE TEST ENTER/EDIT ORDERABLES Final Result * Lipid Panel, Standard (09/14/2023 10:35 AM EDT) Triglycerides 85 <150 mg/dL [facility] Comment:Desirable Triglyceri de: less than 150 mg/dLBorderline High Triglyceride 150-199 mg/dLHigh Triglyceride: 200-499 mg/dLVery High Triglyceride: greater than or equal to 5OO mg/dL Cholesterol 122 <200 mg/dL [facility] Comment:Desirable Cholestero l: less than 200 mg/dLBorderline High Cholesterol: 200-239 mg/dLHigh Cholesterol: greater than 239 mg/dL LDL Cholesterol Calculated 57 <100 mg/dL [facility] Comment:Desirable LDL: less than 100 mg/dLNear Optimal/Above Optimal LDL: 110- 129 mg/dLBorderline High LDL: 130-159 mg/dLHigh LDL: 160-189 mg/dLVery High LDL: greater than or equal to 190 mg/dL HDL Cholesterol 48 >40 mg/dL [facility] Comment:Desirable HDL: great er than 40 mg/dL Note: This HDL assay may give artificially low results in patients with liver disease. Blood Venous blood specimen / Unknown 09/14/2023 10:35 AM EDT 09/14/2023 11:07 AM EDT Kayla Doyle MD LAB BLOOD ORDERABLES Final Res ult Performing Organization Address [facility]/ZIP Co de Phone Number [facility] [address] [place] [phone] * (ABNORMAL) HEPATITIS C AB W/REFL TO HCV RNA, QN, PCR (07/01/2021 9:42 AM EDT) HEPATITIS C ANTIBODY REACTIVE( A) NON-REACT [facility] INDEX 23.60(H) <1.00 [facility] Comment: Based on this result, the sample will be tested for HCV RNA by a Nucleic Acid Amplification Test (NAAT) to determine if the patient has a current active infection. 07/01/2021 9:42 AM EDT Kayla Doyle MD HISTORICAL/NON ORDERABLE LABS Final Result Performing Organization Address City/[facility]/ZIP Co de Phone Number [facility] [address] [place] [address], * Hm Colonoscopy (03/27/2018 3:26 PM EST) Historical Provider HEALTH MAINTENANCE Final Result from Last 3 Months or Most Recently Relevant to Health Maintenance Insurance [facility] OPTIONS (HMO D-SNP) [facility] Advance Directives Documents on File Type Date Recorded Patient Economic Developer Expl anation Advance Directives and Livin g Will 10/09/2023 Health Care Proxy Care Teams Manager Field Services Relationship Specialty Start Date End Date Kayla Doyle MD [address] [place] [address] PCP - General Family Medicine 11/08/20
--- OUTSIDE RECORDS SUMMARY | 2025-01-19 06:22 | XMS_ITS | Encounter Summary ---
Author Organization [employer] Address [address] [place] [address] 7t [place] [address] Care Team Providers Care Porcelain Enameling Supervisor Name Role Phone Kayla Doyle MD Primary Care Provider [phone] Encounter Details Date Type Department Care Team (Late Contact Info) Description 11/14/2022 Abstract [facility] [address] [place], [place] [phone] Kayla Doyle MD [address] [place] [address] [phone] Social History Tobacco Use Types Packs/Day Years [...] Description 02/13/2025 9:45 AM EST Office Visit [facility] [address] [place] [address] [phone] Kayla Doyle MD [address] [place] [address] [phone] documented as of this encounter Visit Diagnoses Not on filedocumented in this encounter Care Teams Porcelain Enameling Supervisor Relationship Specialty Start Date End Date Kyala Doyle MD [address] [place] [address] PCP - General Family Medicine 11/08/20 documented as of this encounter
--- OUTSIDE RECORDS SUMMARY | 2025-01-19 06:22 | XMS_ITS | Encounter Summary ---
Author Organization [employer] Address [address] [facility] 7t [place] [address] Care Team Providers Care Well Driller Helper Name Role Phone Kayla Doyle MD Primary Care Provider [phone] Encounter Details Date Type Department Care Team ([facility] st Contact Info) Description 09/20/2023 Orders Only [facility] [address] [place], [place] [phone] Kayla Doyle MD [address] [place], [place] [phone] Social History Tobacco Use Types Packs/Day Years [...] Description 02/13/2025 9:45 AM EST Office Visit [facility] [address] [place] [address] Kayla Doyle MD [address] [place] [address] documented as of this encounter Visit Diagnoses Not on filedocumented in this encounter Care Teams Well Driller Helper Relationship Specialty Start Date End Date Kayla Doyle MD [address] [place] [phone] PCP - General Family Medicine 11/08/20 documented as of this encounter
--- OUTSIDE RECORDS SUMMARY | 2025-01-19 06:22 | XMS_ITS | Encounter Summary ---
Author Organization [employer] Address [address] [facility] 7t [place] [address] Care Team Providers Care Inventory Clerk Name Role Phone Kayla Doyle MD Primary Care Provider [phone] Encounter Details Date Type Department Care Team ([facility] st Contact Info) Description 12/14/2023 Orders Only [facility] [address] [place], [place] [phone] Kayla Doyle MD [address] [place], [place] [phone] Social History Tobacco Use Types Packs/Day Years [...] Description 02/13/2025 9:45 AM EST Office Visit [facility] [address] [place] [address] Kayla Doyle MD [address] [place] [address] documented as of this encounter Visit Diagnoses Not on filedocumented in this encounter Care Teams Inventory Clerk Relationship Specialty Start Date End Date Kayla Doyle MD [address] [place] [phone] PCP - General Family Medicine 11/08/20 documented as of this encounter
--- OUTSIDE RECORDS SUMMARY | 2025-01-19 06:22 | XMS_ITS | Encounter Summary ---
Author Organization [employer] Address [address] [facility] 7t [place] [address] Care Team Providers Care Merchandise Flow Team Member Name Role Phone Kayla Doyle MD Primary Care Provider [phone] Reason for Visit * Reason Comments Med Refill Encounter Details Date Type Department Care Team (Late st Contact Info) Description 02/11/2024 Refill [facility] [address] [place], [place] [phone] Kayla Doyle MD [address] [place], [place] [phone] Other hyperlipidemia Social History Tobacco Use Types [...] Description 02/13/2025 9:45 AM EST Office Visit [facility] [address] [place] [address] [phone] Kayla Doyle MD [address] [place] [phone] documented as of this encounter Visit Diagnoses Diagnosis Other hyperlipidemia documented in this encounter Care Teams Merchandise Flow Team Member Relationship Specialty Start Date End Date Kayla Doyle MD [address] [place] [phone] PCP - General Family Medicine 11/08/20 documented as of this encounter
--- OUTSIDE RECORDS SUMMARY | 2025-01-19 06:22 | XMS_ITS | Patient Health Record ---
Author Organization [facility] [facility] Address [address] [place] [address] Care Team Providers Care Fur Trapper Name Role Phone Michael Yanez Jr Reason For Referral No Information Plan Of Treatment No Information
--- OUTSIDE RECORDS SUMMARY | 2025-01-19 06:22 | XMS_ITS | Encounter Summary ---
Author Organization [employer] Address [address] [facility] 7[address] [place] [address] Care Team Providers Care Fermentation Engineer Name Role Phone Kayla Doyle MD Primary Care Provider [phone] Encounter Details Date Type Department Care Team (Late st Contact Info) Description 07/19/2023 Orders Only [facility] [address] [place], [place] [phone] ProviderAlicia MD Social History Tobacco Use Types Packs/Day Years Used Date Smoking Tobacco: Never Smokeless Tobacco: Never Alcohol Use Standard Drinks/Week Comments Not Currently 0 (1 standard drink = 0.6 oz pur e alcohol) 25 yrs ago Housing Stability Answer Date Recorded What is your housing situation today? I have jeaine kellen 12/29/[address] you [...] Description 02/13/2025 9:45 AM EST Office Visit [facility] [address] [place] [address] Kayla Doyle MD [address] [place] [address] Pending Results Name Type Priority Associated Diagnoses [...] EDT) 08/16/2023 11:4 0 AM EDT Narrative [facility] - 08/16/2023 4:32 PM EDT [address] [address] Nuclear Medicine Report Signed Patient: Serafin Steele MR#: [id number] : 1950 Acct:[id number] Age/Sex: 73 / M ADM Date: 08/14/23 Loc: .[facility] 477-[address]: Kt Walker MD Ordering Physician: Kt Walker MD Date of Service: 08/15/23 Procedure(s): NM cardiolite stress test Accession Number(s): [id number] cc: Kayla Doyle; Kt Walker MD Myocardial [...] in OV> 08/16/23 1628 DD/ 1140 TD/TT: Ore Sampler: Procedure Note Donotuseinterpreter, Image - 08/16/2023 [place] [address] Nuclear Medicine Report Signed Patient: Mel Steele#: [id number] : 1Acct:[id number] Age/Sex: 73 / MADM Date: 08/14/23 Loc: [facility] 477-[address]: Kt Walker MD Ordering Physician: Kt Walker MD Date of Service: 08/15/23 Procedure(s): NM cardiolite stress test Accession Number(s): [id number] cc: Kayla Doyle; Kt Walker MD Myocardial [...] in OV> 08/16/23 1628 DD/ 1140 TD/TT: Ore Sampler: [facility] External Provider CV STRE SS PROCEDURES Final Result Performing Organization Address [facility] Co de Phone Number [facility] [address] [place] [address] * (ABNORMAL) High Sensitivity Troponin I (08/14/2023 1:31 PM EDT) TROPONIN I HIGH SENSITIVITY 512.2(HH) <3.5 - 35.0 ng/L [facility] Comment:Critical value for T ROPONIN: Results called to and readback by: ABIMAEL Person calling: OSITO Date: 08/14/23 Time:1358The Wilks high sensitivity Troponin-I results should beused in conjunction with other diagnostic information suchas ECG, clinical observations and information, and patientsymptoms to aid in the diagnosis of IA. 08/14/2023 1:31 PM EDT 08/14/2023 1:33 PM EDT Generic External Data Provider LAB BLOOD ORDERAB LES Final Result Performing Organization Address [facility] Co de Phone Number [facility] [address] [place] [phone] * Creatine Kinase, Total (08/14/2023 11:35 AM EDT) Creatine Kinase Total 143 38 - 174 U/L [facility] 08/14/2023 11:3 5 AM EDT 08/14/2023 11:38 AM EDT Generic External Data Provider LAB BLOOD ORDERAB LES Final Result Performing Organization Address [facility] Co de Phone Number [facility] [address] [place] [phone] * TSH with Reflex to Free T4 (08/14/2023 11:35 AM EDT) TSH reflex Free T4 1.15 0.32 - 4.0 uIU/mL [facility] 08/14/2023 11:3 5 AM EDT 08/14/2023 11:38 AM EDT Generic External Data Provider LAB BLOOD ORDERAB LES Final Result Performing Organization Address [facility] Co de Phone Number [facility] [address] [place] [phone] * Lipase (08/14/2023 11:35 AM EDT) Pathologist [facility] Lipase 17 8 - 78 U/L [facility] 08/14/2023 11:3 5 AM EDT 08/14/2023 11:38 AM EDT Generic External Data Provider LAB BLOOD ORDERAB LES Final Result Performing Organization Address [facility] de Phone Number [facility] [address] [place] [phone] * Magnesium (08/14/2023 11:35 AM EDT) Pathologist [facility] Magnesium 2.0 1.6 - 2.6 mg/dL [facility] 08/14/2023 11:3 5 AM EDT 08/14/2023 11:38 AM EDT Generic External Data Provider LAB BLOOD ORDERAB LES Final Result Performing Organization Address [facility] de Phone Number [facility] [address] [place] [phone] * (ABNORMAL) Basic Metabolic Panel (08/14/2023 11:35 AM EDT) Pathologist [facility] Sodium 141 135 - 145 mmol/L [facility] Potassium 3.5 3.3 - 5.1 mmol/L [facility] Chloride 103 96 - 108 mmol/L [facility] Carbon Dioxide 28 22 - 29 mmol/L [facility] Anion Gap 14 12 - 20 [facility] Urea Nitrogen (BUN) 21(H) 9 - 16 mg/dL [facility] Creatinine, Serum 1.16 0.5 - 1.4 mg/dL [facility] Creatinine Clr Calc Pharmacy 58.5 [facility] Comment:eGFR (calculated fro m the MDRD study equation) and eCrCl(calculated from the Cockcroft-Gault equation) are based ondifferent parameters and may not yield comparable results.If eCrCl result is absurd, please check patient'sheight/weight. Estimated Glomerular Filt Rate >60 [facility] Comment:NOTE: For -Am erican individuals, multiply the result by 1.210.Chronic Kidney Disease: Estimated GFR < 60 mL/min/1.69n8Gzhwlc Kidney Disease: Estimated GFR < 15 mL/min/1.73m2 Glucose 165(H) 60 - 115 mg/dL [facility] Calcium 9.5 8.4 - 10.2 mg/dL [facility] 08/14/2023 11:3 5 AM EDT 08/14/2023 11:38 AM EDT us Generic External Data Provider LAB BLOOD ORDERAB LES Final Result [facility] [address] [place] [phone] * Hepatic Function Panel (08/14/2023 11:35 AM EDT) Bilirubin, Total 0.5 0.0 - 1.0 mg/dL [facility] Bilirubin, Direct 0.4 0.0 - 0.5 mg/dL [facility] Aspartate Amino Transferase 24 5 - 37 U/L [facility] Alanine Aminotransferase 18 0 - 40 U/L [facility] Total Protein 7.9 6.5 - 8.0 g/dL [facility] Albumin Level 4.5 3.5 - 5.0 g/dL [facility] Alkaline Phosphatase 65 39 - 117 U/L [facility] 08/14/2023 11:3 5 AM EDT 08/14/2023 11:38 AM EDT us Generic External Data Provider LAB BLOOD ORDERAB LES Final Result [facility] [address] [place] [phone] * (ABNORMAL) Drug Monitoring, Panel 1, Screen, Urine (08/14/2023 11:00 AM EDT) Opiate Screen Urine Not Detected Not Detect [facility] Comment:Opiate cut-off is 30 0 ng/mL.Positive results are unconfirmed and should not be used fornon-medical purposes. Barbiturates, Urine Not Detected Not Detect [facility] Comment:Barbiturate cut-off is 200 ng/mL.Positive results are unconfirmed and should not be used fornon-medical purposes. Phencyclidine Screen Urine Not Detected Not Detect [facility] Comment:Phencyclidine cut-of f is 25 ng/mL.Positive results are unconfirmed and should not be used fornon-medical purposes. Amphetamine Screen Urine Not Detected Not Detect [facility] Comment:Amphetamine cut-off is 1000 ng/mL.Positive results are unconfirmed and should not be used fornon-medical purposes. Benzodiazepines Screen Urine Not Detected Not Detect [facility] Comment:Benzodiazepine cut-o ff is 200 ng/mL.Positive results are unconfirmed and should not be used fornon-medical purposes. Cocaine Screen Urine Not Detected Not Detect [facility] Comment:Cocaine cut-off is 3 00 ng/mL.Positive results are unconfirmed and should not be used fornon-medical purposes. Cannabinoid Screen Urine Not Detected Not Detect [facility] Comment:Cannabinoid cut-off is 50 ng/mL.Positive results are unconfirmed and should not be used fornon-medical purposes. Methadone Screen, Urine Not Detected Not Detect ng/mL [facility] Comment:Methadone cut-off is 300 ng/mL.Positive results are unconfirmed and should not be used fornon-medical purposes. FENTANYL URINE POSITIVE(A) Not Detect [facility] Comment:Fentanyl cut-off is 1 ng/mL.Positive results are unconfirmed and should not be used fornon-medical purposes. Oxycodone Urine Screen Not Detected Not Detect ng/mL [facility] Comment:Oxycodone cut-off is 100 ng/mL.Positive results are unconfirmed and should not be used fornon-medical purposes. Buprenorphine Screen Not Detected Not Detect ng/mL [facility] Comment:Buprenorphine cut-of f is 5 ng/mL.Positive results are unconfirmed and should not be used fornon-medical purposes. 08/14/2023 11:0 0 AM EDT 08/14/2023 11:16 AM EDT us Generic External Data Provider LAB URINE ORDERAB LES Final Result Performing Organization Address [facility] Co de Phone Number [facility] [address] [place] [phone] * CT Head w/o Contrast (08/14/2023 10:35 AM EDT) Anatomical Region Laterality Modality Head, Neck Computed Tomogra phy 08/14/2023 10:3 5 AM EDT Narrative 08/14/2023 12:20 PM EDT [address] [address] [address] Scan Report Signed Patient: Serafin Steele MR#: [id number] : 1950 Acct:[id number] Age/Sex: 73 / M ADM Date: 08/14/23 Loc: HO.ED Attending Dr: Ordering Physician: Aubree Jamison DO Date of Service: 08/14/23 Procedure(s): CT head/brain wo IV con Accession Number(s): [id number] cc: Aubree Jamison DO; Kayla Doyle EXAMINATION: [...] in OV> 08/14/23 1216 DD/ 1035 TD/TT: Ore Sampler: SAGE Procedure Note Donotuseinterpreter, Image - 08/14/[address] [place] [address] [address] Scan Report Signed Patient: Mel Steele#: [id number] : 1950cct:[id number] Age/Sex: 73 / MADM Date: 08/14/23 Loc: HO.ED Attending Dr: Ordering Physician: Aubree Jamison DO Date of Service: 08/14/23 Procedure(s): CT head/brain wo IV con Accession Number(s): [id number] cc: Aubree Jamison DO; Kayla Doyle EXAMINATION: [...] in OV> 08/14/23 1216 DD/ 1035 TD/TT: Ore Sampler: SAGE [facility] External Provider IMG CT PROCEDURES Final Result * XR Chest 1 View (08/14/2023 10:29 AM EDT) Anatomical Region Laterality Modality Chest Radiographic Charlotte ging 08/14/2023 10:2 9 AM EDT Narrative 08/14/2023 12:10 PM EDT [address] [address] XRay Report Signed Patient: Serafin Steele MR#: [id number] : 1950 Acct:[id number] Age/Sex: 73 / M ADM Date: 08/14/23 Loc: HO.ED Attending Dr: Ordering Physician: Aubree Jamison DO Date of Service: 08/14/23 Procedure(s): XR chest 1V Accession Number(s): [id number] cc: Aubree Jamison DO; Kayla Doyle EXAMINATION: [...] in OV> 08/14/23 1206 DD/ 1029 TD/TT: Ore Sampler: Procedure Note Donotuseinterpreter, Image - 08/14/[address] [address] XRay Report Signed Patient: Mel Steele#: [id number] : 1950cct:[id number] Age/Sex: 73 / MADM Date: 08/14/23 Loc: .ED Attending Dr: Ordering Physician: Aubree Jamison DO Date of Service: 08/14/23 Procedure(s): XR chest 1V Accession Number(s): [id number] cc: Aubree Jamison DO; Kayla Doyle EXAMINATION: [...] in OV> 08/14/23 1206 DD/ 1029 TD/TT: Ore Sampler: [facility] External Provider IMG XR PROCEDURES Final Result * B Type Natriuretic Peptide (BNP) (08/14/2023 10:17 AM EDT) Pathologist [facility] B Type Natriuretic Peptide 54 <100 pg/mL [facility] Comment:For those patients w ho are being treated with Natrecor(nesiritide, recombinant BNP), BNP testing should beperformed at least two hours post treatment in order toensure that only endogenous levels of BNP are detected. 08/14/2023 10:1 7 AM EDT 08/14/2023 10:18 AM EDT Generic External Data Provider LAB BLOOD ORDERAB LES Final Result Performing Organization Address [facility] Co de Phone Number [facility] [address] [place] [phone] * High Sensitivity Troponin I (08/14/2023 9:51 AM EDT) Pathologist [facility] TROPONIN I HIGH SENSITIVITY 31.7 <3.5 - 35.0 ng/L [facility] Comment:The Wilks high sens itivity Troponin-I results should beused in conjunction with other diagnostic information suchas ECG, clinical observations and information, and patientsymptoms to aid in the diagnosis of IA. 08/14/2023 9:51 AM EDT 08/14/2023 9:54 AM EDT Generic External Data Provider LAB BLOOD ORDERAB LES Final Result [facility] [address] [place] [phone] * Prothrombin Time-INR (08/14/2023 9:51 AM EDT) [facility] Prothrombin Time 11.6 11.1 - 13.3 SEC [facility] INTERNATIONAL NORM RATIO 1.0 0.9 - 1.1 [facility] Comment:INTERNATIONAL NORMAL IZED RATIO (INR) [...] Provider LAB BLOOD ORDERAB LES Final Result [facility] [address] [place] [phone] * (ABNORMAL) CBC auto differential (08/14/2023 9:51 AM EDT) [facility] White Blood Count 11.5(H) 4.8 - 10.8 X10*3/uL [facility] Red Blood Count 4.96 4.60 - 5.80 X10*6/uL [facility] Hemoglobin 13.0(L) 14.0 - 18.0 g/dl [facility] Hematocrit 40.6(L) 42.0 - 52.0 % [facility] Mean Corpuscular Volume 81.9 80.0 - 98.0 fL [facility] Mean Corpuscular Hemoglobin 26.2(L) 27.0 - 33.0 pg [facility] Mean Corpuscular HGB Conc 32.0 31.0 - 36.0 g/dl [facility] Red Cell Distribution Width 16.8(H) 11.0 - 16.0 % [facility] Platelet Count 174 160 - 400 X10*3/uL [facility] Mean Platelet Volume 10.9 9.4 - 12.4 fL [facility] Neutrophils Percent Auto 74.2(H) 45 - 73 % [facility] Imm Gran Pct Auto 0.4 0.0 - 0.4 % [facility] Lymphocytes Percent Auto 16.3(L) 20 - 40 % [facility] Monocytes Percent Auto 6.2 2 - 11 % [facility] Eosinophils Percent Auto 2.6 0 - 4 % [facility] Basophils Percent Auto 0.3 0 - 2 % [facility] NRBC Pct Auto 0.0 0.0 - 0.2 /100WBC [facility] Neutrophils Absolute Auto 8.6(H) 2.0 - 8.3 x10*3/uL [facility] Imm Gran Abs Auto 0.05(H) 0.00 - 0.03 X10*3/uL [facility] Lymphocytes Absolute Auto 1.9 1.2 - 4.9 X10*3/uL [facility] Monocytes Absolute Auto 0.7 0.1 - 1.2 X10*3/uL [facility] Eosinophils Absolute Auto 0.3 0.0 - 0.4 X10*3/uL [facility] Basophils Absolute Auto 0.0 0.0 - 0.2 X10*3/uL [facility] NRBC Abs Auto 0.000 0.0 - 0.012 X10*3/uL [facility] 08/14/2023 9:51 AM EDT 08/14/2023 9:54 AM EDT us Generic External Data Provider LAB BLOOD ORDERAB LES Final Result [facility] [address] [place] [phone] * Calcium (08/07/2023 6:36 AM EDT) Calcium 9.5 8.4 - 10.2 mg/dL [facility] 08/07/2023 6:36 AM EDT 08/07/2023 6:36 AM EDT us Generic External Data Provider LAB BLOOD ORDERAB LES Final Result Performing Organization Address [facility] Co de Phone Number [facility] [address] [place] [phone] * Creatinine, Serum (08/07/2023 6:36 AM EDT) Creatinine, Serum 1.04 0.5 - 1.4 mg/dL [facility] Estimated Glomerular Filt Rate >60 [facility] Comment:NOTE: For -Am erican individuals, multiply the result by 1.210.Chronic Kidney Disease: Estimated GFR < 60 mL/min/1.39t7Kpvius Kidney Disease: Estimated GFR < 15 mL/min/1.73m2 08/07/2023 6:36 AM EDT 08/07/2023 6:36 AM EDT us Generic External Data Provider LAB BLOOD ORDERAB LES Final Result Performing Organization Address [facility] de Phone Number [facility] [address] [place] [phone] * BUN (Blood Urea Nitrogen) (08/07/2023 6:36 AM EDT) Urea Nitrogen (BUN) 12 9 - 16 mg/dL [facility] 08/07/2023 6:36 AM EDT 08/07/2023 6:36 AM EDT Generic External Data Provider LAB BLOOD ORDERAB LES Final Result Performing Organization Address [facility] Co de Phone Number [facility] [address] [place] [phone] * Electrolyte Panel (08/07/2023 6:36 AM EDT) Sodium 142 135 - 145 mmol/L [facility] Potassium 3.8 3.3 - 5.1 mmol/L [facility] Chloride 104 96 - 108 mmol/L [facility] Carbon Dioxide 26 22 - 29 mmol/L [facility] Anion Gap 16 12 - 20 [facility] 08/07/2023 6:36 AM EDT 08/07/2023 6:36 AM EDT Generic External Data Provider LAB BLOOD ORDERAB LES Final Result Performing Organization Address [facility] Co de Phone Number [facility] [address] [place] [phone] * (ABNORMAL) Protein Creatinine Ratio, Urine (08/07/2023 6:35 AM EDT) Creatinine, Urine 347.15 mg/dL [facility] Protein, Total, Random Urine 30(H) <12 mg/dL [facility] Protein/Creati nine Ratio, Ur 0.09 <0.2 [facility] Comment:The spot urine prote in:creatinine ratio may increase to 0.3during normal . 08/07/2023 6:35 AM EDT 08/07/2023 7:58 AM EDT Generic External Data Provider LAB URINE ORDERAB LES Final Result Performing Organization Address [facility]/ZIP Co de Phone Number [facility] [address] [place] [phone] * (ABNORMAL) Urinalysis with Reflex to Microscopic (08/07/2023 6:35 AM EDT) Color Urine Yellow [facility] Appearance Urine Clear [facility] PH 6.0 5.0 - 9.0 [facility] Glucose Urine UA Negative Negative mg/dL [facility] Urine Blood Negative Negative [facility] Specific [place] - Urine >=1.030(H) 1.005 - 1.025 [facility] Urine Protein Negative Neg-Trace mg/dL [facility] Urine Ketones Negative Negative mg/dL [facility] Nitrite Urine Negative Negative [facility] Leukocyte Esterase Urine Negative Negative [facility] 08/07/2023 6:35 AM EDT 08/07/2023 7:58 AM EDT us Generic External Data Provider LAB URINE ORDERAB LES Final Result [facility] [address] [place] [phone] * Colonoscopy (03/27/2018 3:26 PM EST) us Historical Provider HEALTH MAINTENANCE Final Result documented in this encounter Visit Diagnoses Not on filedocumented in this encounter Care Teams Fermentation Engineer Relationship Specialty Start Date End Date Kayla Doyle MD [address] [place] [address] PCP - General Family Medicine 11/08/20 documented as of this encounter
--- OUTSIDE RECORDS SUMMARY | 2025-01-19 06:22 | XMS_ITS | Encounter Summary ---
Author Organization [employer] Address [address] [facility] [address] [place] [address] Care Team Providers Care Paramedical Aide Name Role Phone Kayla Doyle MD Primary Care Provider [phone] Reason for Visit * Reason Comments Med Refill Encounter Details Date Type Department Care Team ([facility] st Contact Info) Description 01/14/2025 Refill [facility] [address] [place], [place] [phone] Kayla Doyle MD [address] [place], [place] [phone] Other hyperlipidemia Social History Tobacco Use Types [...] Description 02/13/2025 9:45 AM EST Office Visit [facility] [address] [place] [phone] Kayla Doyle MD [address] [place] [address] documented as of this encounter Visit Diagnoses Diagnosis Other hyperlipidemia documented in this encounter Additional Health Concerns Assessment Noted Time PHQ-9 Depression Total Score: 0 08/27/19 25 10:56 AM EDT documented as of this encounter Care Teams Paramedical Aide Relationship Specialty Start Date End Date Kayla Doyle MD [address] [place] [address] PCP - General Family Medicine 11/08/20 documented as of this encounter
--- OUTSIDE RECORDS SUMMARY | 2025-01-19 06:22 | XMS_ITS | Clinical Summary ---
Author Organization [facility] Address [address] [phone] Phone Care Team Providers Care Boiler/Chiller Operator Name Role Phone Kayla Doyle MD [...] 9.3 8.7 - 10.7 mg/dL eGFR Non-Afr Congolese 36 eGFR 41 Hemoglobin A1C 5.6 4.0 - 6.0 Alb/Creat Ratio, Ur 5.00 mg/g Creat Triglycerides 66 40 - 160 Cholesterol 136 0 - 200 HDL 62 35 - 70 MG/DL LDL Calculated 59 0 - 160 mg/dL 04/30/2020 Historical Provider LAB BLOOD ORDERABLES Xiomy l Result from Last 3 Months or Most Recently Relevant to Health Maintenance Insurance [facility] ([id number]) [facility] ([id number]) Care Teams Boiler/Chiller Operator Relationship Specialty Start Date End Date Kayla Doyle MD PCP - General Powdered Sugar Pulverizer Operator 04/13/21
[2025-01-19 07:42] LABS: Anion Gap 12 (12-20); Blood Urea Nitrogen 18 mg/dL (9-16); Carbon Dioxide 29 mmol/L (22-29); Chloride 102 mmol/L (96-108); Estimated Glomerular Filt Rate 56; Potassium 3.6 mmol/L (3.3-5.1); Sodium 139 mmol/L (135-145)
== END 2025-01-19 06:20 | disposition home or self-care (01) ==
LOC: HO.LAB 06:19
PROVIDERS: PCP General Practice; Visit Provider Internal Medicine Nephrology
DX: I12.9 Hypertensive chronic kidney disease with stage 1 through stage 4 chronic kidney disease, or unspecified chronic kidney disease (principal); N18.31 Chronic kidney disease, stage 3a
CPT/HCPCS: 36415; 80051; 82565; 84520

== ENCOUNTER 2025-01-23 10:09 | Outpatient (AMB) | payer OTHER, SELFPAY ==
--- NOTE | 2025-01-23 10:16 | HO.NEPHOV_ITS ---
Vital Signs 01/23/25 10:17 Height 5 ft 10 in Weight 195 lb 4 oz BMI 28.0 BP 130/80 Blood Pressure Location Rt brachial Position Sitting Pulse 86 Pulse Source Pulse Oximeter Pulse Oximetry (%) 95 Oxygen Delivery Method Room Air Intake Visit Reasons: 6mon follow-up w/labs-Conf Calcine Furnace Loader Required: No Accompanied by: Spouse Allergies No Known Allergies (No Known Allergies*) Allergy (Verified 01/23/25 10:17) HPI Comments Details: Serafin in follow-up of his mild CKD and hypertension. Has history of hepatitis-C antibody positive. He does not have any chest pain, shortness of breath, paroxysmal nocturnal dyspnea, orthopnea, pedal edema, nausea, vomiting, diarrhea, urinary symptoms or orthostasis. He is compliant with his medications. He does not take any nonsteroidal anti-inflammatories. His renal functions have been stable. He feels well. [facility] Medical History CKD (chronic kidney disease) stage 3, GFR 30-59 ml/min Hypothyroidism Anemia Insomnia Anxiety Hepatitis C Thyroid disease History of colon polyps HTN (hypertension) Surgical History H/O umbilical hernia repair H/O colonoscopy Social History Alcohol intake: current Alcohol intake frequency: holidays/special occasions only Patient Tobacco Use Status: Never used Tobacco Substance Use Type: Other service: No Review of Systems Const All systems reviewed & are unremarkable except as noted in HPI and below Physical Exam Vital Signs: Last Vital Signs Pulse 86 01/23/25 10:17 BP 130/80 01/23/25 10:17 Pulse Ox 95 01/23/25 10:17 Oxygen Delivery Method Room Air 01/23/25 10:17 BMI result Body Mass Index 28.0 Const General: comfortable and no acute distress Orientation/consciousness: patient oriented x3 HEENT Head: Yes normocephalic Mouth: Normal oral and palatal mucosa present Eyes EOM: EOMs intact bilaterally Neck Neck: Yes supple Resp Auscultation: clear to auscultation bilaterally Cardio Jugular venous distension: no JVD Rate: regular rate GI Palpation (GI): Soft to palpation Auscultation: normal bowel sounds General: Yes no CVA tenderness Back/Spine/Pelvis Back: no CVA tenderness Skin General skin exam: no rashes or lesions noted Neuro General: patient oriented x3 and moves all extremities Extrem General: Yes no pedal edema Results Reviewed Nephrology Results: Hgb, (14.0-18.0) 13.9 g/dl L 02/13/24 WBC, (4.8-10.8) 7.2 X10*3/uL 02/13/24 Plt Count, (160-400) 155 X10*3/uL L 02/13/24 Sodium, (135-145) 139 mmol/L 01/19/25 Potassium, (3.3-5.1) 3.6 mmol/L 01/19/25 Chloride, (96-108) 102 mmol/L 01/19/25 Carbon Dioxide, (22-29) 29 mmol/L 01/19/25 BUN, (9-16) 18 mg/dL H 01/19/25 Creatinine, (0.5-1.4) 1.25 mg/dL 01/19/25 Calcium, (8.4-10.2) 9.6 mg/dL 06/25/24 Urine Protein, (Neg-Trace) Trace mg/dL 01/16/25 Urine Creatinine 412.55 mg/dL 01/15/25 Protein/Creatinin Ratio, (<0.2) 0.12 01/15/25 Assessment & Plan Assessment & Plan (1) HTN (hypertension): Code(s): I10 - Essential (primary) hypertension Category: Medical Qualifiers: Hypertension type: primary hypertension Qualified Code(s): I10 - Es sential (primary) hypertension (2) CKD (chronic kidney disease) stage 3, GFR 30-59 ml/min: Code(s): N18.30 - Chronic kidney disease, stage 3 unspecified Category: Medical Qualifiers: Chronic kidney disease stage 3 subtype: stage 3a (GFR 45-59) Qualified Code(s): N18.31 - Chronic kidney disease, stage 3a Vicente Betancourt has history of CKD stage 3 and longstanding hypertension. His renal functions are quite stable. His blood pressure is at goal. His volume status is optimal. His cryoglobulin was negative in the past. He avoids nonsteroidal anti-inflammatories and maintain good hydration. I did not make any medication changes today. Follow-up blood work ordered. Answered all questions. Follow- up appointment given. Orders: Orders Blood Urea Nitrogen 6 Months I10 - Essential (primary) hypertension, N18.31 - Chronic kidney disease, stage 3a Protein Creatinine Ratio, Ur 6 Months I10 - Essential (primary) hypertension, N18.31 - Chronic kidney disease, stage 3a Electrolytes 6 Months I10 - Essential (primary) hypertension, N18.31 - Chronic kidney disease, stage 3a Creatinine 6 Months I10 - Essential (primary) hypertension, N18.31 - Chronic kidney disease, stage 3a Coding Level of Care Code Est Pt Level 4 (16268) Diagnoses Primary hypertension I10 Hypertension type: primary hypertension Stage 3a chronic kidney disease N18.31 Chronic kidney disease stage 3 subtype: stage 3a (GFR 45-59)
[2025-01-23 10:17] VITALS: BP 130/80; PULSE 86; O2SAT 95; BMI 28.0
--- OUTSIDE RECORDS SUMMARY | 2025-01-23 12:24 | XMS_ITS | Clinical Summary ---
Author Organization [employer] Address [address] [place] [address] 7t [place] [address] Care Team Providers Care Aquaculture Program Director Name Role Phone Kayla Doyle MD Primary Care Provider [phone] Allergies Active Allergy Reactions Criticality Noted Date [...] EST): Stable disease Continue to f/u with warehouseman q 6 months Assessment & Plan (09/19/2023 [...] Type Department Care Team Description 01/14/2025 Refill [facility] MED[facility] [address] [place] [address] Kayla Doyle MD Other hyperlipidemia 11/15/2024 Refill [facility] [address] [place] [address] Kayla Doyle MD 10/23/2024 Refill [facility] [address] [place] [address] Kayla Doyle MD Constipation, unspecified constipation type [...] Description 02/13/2025 9:45 AM EST Office Visit [facility] [address] [place] [address] Kayla Doyle MD [address] [place] [address] Health Maintenance Due Date Last Done Comments [...] Procedure Name Priority Date/Time Associated Diagnosis Comments CREATININE, SERUM Routine 01/19/2025 6:5 4 AM EST UREA NITROGEN (BUN) Routine 01/19/2025 6 :54 AM EST ELECTROLYTE PANEL Routine 01/19/2025 6:5 4 AM EST URINALYSIS WITH REFLEX TO MICROSCOPIC Routine 01/16/2025 6:22 AM EST PROTEIN CREATININE RATIO, URINE Routine 01/15/2025 6:28 AM EST URINALYSIS, COMPLETE Routine 01/15/2025 6:28 AM EST POCT GLYCATED HEMOGLOBIN, TOTAL Routine 08/26/2024 10:56 AM EDT Type 2 diabetes mellitus with stage 3a chronic kidney disease, without long-term current use of insulin ([facility]) PROPHYLAXIS - ADULT Routine 04/21/2024 8 :00 [...] Recently Relevant to Health Maintenance Results * Creatinine, Serum (01/19/2025 6:54 AM EST) Creatinine, Serum 1.25 0.5 - 1.4 mg/dL [facility] Estimated Glomerular Filt Rate 56 [facility] Comment:Chronic Kidney Disea se: Estimated GFR < 60 mL/min/[id number] Kidney Disease: Estimated GFR < 15 mL/min/1.73m2 01/19/2025 6:54 AM EST 01/19/2025 6:54 AM EST Generic External Data Provider LAB BLOOD ORDERAB LES Final Result Performing Organization Address [facility] Co de Phone Number [facility] [address] [place] [phone] * (ABNORMAL) BUN (Blood Urea Nitrogen) (01/19/2025 6:54 AM EST) Urea Nitrogen (BUN) 18(H) 9 - 16 mg/dL [facility] 01/19/2025 6:54 AM EST 01/19/2025 6:54 AM EST Generic External Data Provider LAB BLOOD ORDERAB LES Final Result Performing Organization Address City/[facility] Co de Phone Number [facility] [address] [place] [phone] * Electrolyte Panel (01/19/2025 6:54 AM EST) Sodium 139 135 - 145 mmol/L [facility] Potassium 3.6 3.3 - 5.1 mmol/L [facility] Chloride 102 96 - 108 mmol/L [facility] Carbon Dioxide 29 22 - 29 mmol/L [facility] Anion Gap 12 12 - 20 [facility] 01/19/2025 6:54 AM EST 01/19/2025 6:54 AM EST Generic External Data Provider LAB BLOOD ORDERAB LES Final Result Performing Organization Address [facility] Co de Phone Number [facility] [address] [place] [phone] * Urinalysis with Reflex to Microscopic (01/16/2025 6:22 AM EST) Color Urine Yellow [facility] Appearance Urine Clear [facility] PH 8.0 5.0 - 9.0 [facility] Glucose Urine UA Negative Negative mg/dL [facility] Urine Blood Negative Negative [facility] Specific Mather - Urine 1.020 1.005 - 1.025 [facility] Urine Protein Trace Neg-Trace mg/dL [facility] Urine Ketones Negative Negative mg/dL [facility] Nitrite Urine Negative Negative [facility] Leukocyte Esterase Urine Negative Negative [facility] 01/16/2025 6:22 AM EST 01/16/2025 7:11 AM EST Generic External Data Provider LAB URINE ORDERAB LES Final Result Performing Organization Address [facility] Phone Number [facility] [address] [place] [phone] * (ABNORMAL) Protein Creatinine Ratio, Urine (01/15/2025 6:28 AM EST) Creatinine, Urine 412.55 mg/dL [facility] Protein, Total, Random Urine 49(H) <12 mg/dL [facility] Protein/Creati nine Ratio, Ur 0.12 <0.2 [facility] Comment:The spot urine prote in:creatinine ratio may increase to 0.3during normal . 01/15/2025 6:28 AM EST 01/15/2025 7:15 AM EST us Generic External Data Provider LAB URINE ORDERAB LES Final Result Performing Organization Address [facility] Co de Phone Number [facility] [address] [place] [phone] * (ABNORMAL) Urinalysis Complete (01/15/2025 6:28 AM EST) Color Urine Dark Yellow [facility] Appearance Urine Clear [facility] PH 6.0 5.0 - 9.0 [facility] Glucose Urine UA Negative Negative mg/dL [facility] Urine Blood Negative Negative [facility] Specific Mather - Urine >=1.030(H) 1.005 - 1.025 [facility] Urine Protein 30 (1+)(A) Neg-Trace mg/dL [facility] Urine Ketones Trace Negative mg/dL [facility] Nitrite Urine Negative Negative [facility] Leukocyte Esterase Urine Negative Negative [facility] RBC Urine 0-2 0 - 2 /HPF [facility] Urine WBC 0-5 0 - 5 /HPF [facility] Urine Squamous Epithelial Cell 0-2 0 - 2 /HPF [facility] Urine Bacteria None Seen None Seen [facility] Hyaline Casts, Urine 0-2 0 - 2 /LPF [facility] 01/15/2025 6:28 AM EST 01/15/2025 7:15 AM EST us Generic External Data Provider LAB URINE ORDERAB LES Final Result Performing Organization Address City/[facility]/ZIP Co de Phone Number [facility] [address] [place] [phone] * POCT HGB A1C (08/26/2024 10:56 AM EDT) Hemoglobin A1C 5.7 4.0 - 6.0 % Blood 08/26/2024 10:5 6 AM EDT Kayla Doyle MD POINT OF CARE TEST ENTER/EDIT ORDERABLES Final Result * Lipid Panel, Standard (09/14/2023 10:35 AM EDT) Triglycerides 85 <150 mg/dL [facility] Comment:Desirable Triglyceri de: less than 150 mg/dLBorderline High Triglyceride 150-199 mg/dLHigh Triglyceride: 200-499 mg/dLVery High Triglyceride: greater than or equal to 5OO mg/dL Cholesterol 122 <200 mg/dL [facility] Comment:Desirable Cholestero l: less than 200 mg/dLBorderline High Cholesterol: 200-239 mg/dLHigh Cholesterol: greater than 239 mg/dL LDL Cholesterol Calculated 57 <100 mg/dL [facility] Comment:Desirable LDL: less than 100 mg/dLNear Optimal/Above Optimal LDL: 110- 129 mg/dLBorderline High LDL: 130-159 mg/dLHigh LDL: 160-189 mg/dLVery High LDL: greater than or equal to 190 mg/dL HDL Cholesterol 48 >40 mg/dL [facility] Comment:Desirable HDL: great er than 40 mg/dL Note: This HDL assay may give artificially low results in patients with liver disease. Blood Venous blood specimen / Unknown 09/14/2023 10:35 AM EDT 09/14/2023 11:07 AM EDT Kayla Doyle MD LAB BLOOD ORDERABLES Final Res ult [facility] [address] [place] [phone] * (ABNORMAL) HEPATITIS C AB W/REFL TO HCV RNA, QN, PCR (07/01/2021 9:42 AM EDT) HEPATITIS C ANTIBODY REACTIVE( A) NON-REACT [facility] INDEX 23.60(H) <1.00 [facility] Comment: Based on this result, the sample will be tested for HCV RNA by a Nucleic Acid Amplification Test (NAAT) to determine if the patient has a current active infection. 07/01/2021 9:42 AM EDT us Kayla Doyle MD HISTORICAL/NON ORDERABLE LABS Final Result [facility] [address] [place] [id number] * Hm Colonoscopy (03/27/2018 3:26 PM EST) us Historical Provider HEALTH MAINTENANCE Final Result from Last 3 Months or Most Recently Relevant to Health Maintenance Insurance [facility] [employer] (HMO D-SNP) DENTAL [facility] [place] [id number] Advance Directives Documents on File Type Date Recorded Patient Sign Language Interpreter Expl anation Advance Directives and Livin g Will 10/09/2023 Health Care Proxy Care Teams Aquaculture Program Director Relationship Specialty Start Date End Date Kayla Doyle MD [address] [place] [phone] PCP - General Family Medicine 11/08/20
--- OUTSIDE RECORDS SUMMARY | 2025-01-23 12:24 | XMS_ITS | Clinical Summary ---
Author Organization [facility] Address [address] [place] [phone] Phone Care Team Providers Care Fireboat Operator Name Role Phone Kayla Doyle MD [...] 9.3 8.7 - 10.7 mg/dL eGFR Non-Afr [place] 36 eGFR 41 Hemoglobin A1C 5.6 4.0 - 6.0 Alb/Creat Ratio, Ur 5.00 mg/g Creat Triglycerides 66 40 - 160 Cholesterol 136 0 - 200 HDL 62 35 - 70 MG/DL LDL Calculated 59 0 - 160 mg/dL 04/30/2020 Historical Provider LAB BLOOD ORDERABLES Xiomy l Result from Last 3 Months or Most Recently Relevant to Health Maintenance Insurance [facility] ([id number]) [facility] ([id number]) Care Teams Fireboat Operator Relationship Specialty Start Date End Date Kayla Doyle MD PCP - General Fireboat Operator 04/13/21
--- OUTSIDE RECORDS SUMMARY | 2025-01-23 12:25 | XMS_ITS | Encounter Summary ---
Author Organization [employer] Address [address] [facility] 7t [place] [address] Care Team Providers Care Epitaxial Reactor Technician Name Role Phone Kayla Doyle MD Primary Care Provider [phone] Encounter Details Date Type Department Care Team ([facility] st Contact Info) Description 12/14/2023 Orders Only [facility] MEDICINE [address] [place], [place] [phone] Kayla Doyle MD [address] [place], [place] [phone] Social History Tobacco Use Types Packs/Day Years [...] 02/13/2025 9:45 AM EST Office Visit [facility] [address] [place] [address] Kayla Doyle MD [address] [place] [address] documented as of this encounter Visit Diagnoses Not on filedocumented in this encounter Care Teams Epitaxial Reactor Technician Relationship Specialty Start Date End Date Kayla Doyle MD [address] [place] [phone] PCP - General Family Medicine 11/08/20 documented as of this encounter
--- OUTSIDE RECORDS SUMMARY | 2025-01-23 12:25 | XMS_ITS | Encounter Summary ---
Author Organization [employer] Address [address] [facility] 7t [place] [address] Care Team Providers Care Rehab Nursing Tech Name Role Phone Kayla Doyle MD Primary Care Provider Encounter Details Date Type Department Care Team ([facility] st Contact Info) Description 09/20/2023 Orders Only [facility] [address] [place], [place] [phone] Kayla Doyle MD [address] [place], [place] [phone] Social History Tobacco Use Types Packs/Day Years [...] Description 02/13/2025 9:45 AM EST Office Visit [facility] [address] [place] [address] Kayla Doyle MD [address] [place] [address] documented as of this encounter Visit Diagnoses Not on filedocumented in this encounter Care Teams Rehab Nursing Tech Relationship Specialty Start Date End Date Kayla Doyle MD [address] [place] [phone] PCP - General Family Medicine 11/08/20 documented as of this encounter
--- OUTSIDE RECORDS SUMMARY | 2025-01-23 12:25 | XMS_ITS | Patient Health Record ---
Author Organization [facility] Address [address] [place] [address] Care Team Providers Care Full Roll Inspector Name Role Phone Michael Yanez Jr Reason For Referral No Information Plan Of Treatment No Information
--- OUTSIDE RECORDS SUMMARY | 2025-01-23 12:25 | XMS_ITS | Encounter Summary ---
Author Organization [employer] Address [address] [facility] 7t [place] [address] Care Team Providers Care Printed Circuit Board Pcb Designer Name Role Phone Kayla Doyle MD Primary Care Provider [phone] Reason for Visit * Reason Comments Med Refill Encounter Details Date Type Department Care Team (Late st Contact Info) Description 02/11/2024 Refill [facility] [address] [place], [place] [phone] Kayla Doyle MD [address] [place], [place] [phone] Other hyperlipidemia Social History Tobacco Use Types [...] 9:45 AM EST Office Visit [facility] MEDICINE [address] [place] [address] [phone] Kayla Doyle MD [address] [place] [phone] documented as of this encounter Visit Diagnoses Diagnosis Other hyperlipidemia documented in this encounter Care Teams Printed Circuit Board Pcb Designer Relationship Specialty Start Date End Date Kayla Doyle MD [address] [place] [phone] PCP - General Family Medicine 11/08/20 documented as of this encounter
--- OUTSIDE RECORDS SUMMARY | 2025-01-23 12:26 | XMS_ITS | Encounter Summary ---
Author Organization [employer] Address [address] [place] [address] Care Team Providers Care Heating Systems Installer Name Role Phone Kayla Doyle MD Primary Care Provider [phone] Encounter Details Date Type Department Care Team (Late st Contact Info) Description 07/19/2023 Orders Only [facility] [address] [place], [place] [phone] ProviderAlicia MD Social History Tobacco Use Types [...] Description 02/13/2025 9:45 AM EST Office Visit [facility] [address] [place] [address] Kayla Doyle MD [address] [place] [address] Pending Results Name Type Priority Associated Diagnoses [...] HOSPITAL IMAGING - 08/16/2023 4:32 PM EDT [address] [address] Nuclear Medicine Report Signed Patient: Serafin Steele MR#: [id number] : 1950 Acct:[id number] Age/Sex: 73 / M ADM Date: 08/14/23 Loc: [place] [place]: Kt Walker MD Ordering Physician: Kt Walker MD Date of Service: 08/15/23 Procedure(s): NM cardiolite stress test Accession Number(s): [id number] cc: Kayla Doyle; Kt Walker MD Myocardial [...] in OV> 08/16/23 1628 DD/ 1140 TD/TT: Maitre D: Procedure Note Donotuseinterpreter, Image - 08/16/2023 [place] [address] Nuclear Medicine Report Signed Patient: Mel Steele#: [id number] : 1Acct:[id number] Age/Sex: 73 / MADM Date: 08/14/23 Loc: [facility] 477-[address]: Kt Walker MD Ordering Physician: Kt Walker MD Date of Service: 08/15/23 Procedure(s): NM cardiolite stress test Accession Number(s): [id number] cc: Kayla Doyle; Kt Walker MD Myocardial [...] in OV> 08/16/23 1628 DD/ 1140 TD/TT: Maitre D: [facility] External Provider CV STRE SS PROCEDURES Final Result Performing Organization Address [facility] Co de Phone Number [facility] [address] [place] [address] * (ABNORMAL) High Sensitivity Troponin I (08/14/2023 [...] patientsymptoms to aid in the diagnosis of [place]. 08/14/2023 1:31 PM EDT 08/14/2023 1:33 PM EDT Generic External Data Provider LAB BLOOD ORDERAB LES Final Result Performing Organization Address [facility] Co de Phone Number [facility] [address] [place] [phone] * Creatine Kinase, Total (08/14/2023 11:35 AM EDT) Creatine Kinase Total 143 38 - 174 U/L [facility] 08/14/2023 11:3 5 AM EDT 08/14/2023 11:38 AM EDT Generic External Data Provider LAB BLOOD ORDERAB LES Final Result Performing Organization Address [facility] Co de Phone Number [facility] [address] [place] [phone] * TSH with Reflex to Free T4 (08/14/2023 11:35 AM EDT) TSH reflex Free T4 1.15 0.32 - 4.0 uIU/mL [facility] 08/14/2023 11:3 5 AM EDT 08/14/2023 11:38 AM EDT Generic External Data Provider LAB BLOOD ORDERAB LES Final Result Performing Organization Address [facility] Co de Phone Number [facility] [address] [place] [phone] * Lipase (08/14/2023 11:35 AM EDT) Pathologist [facility] Lipase 17 8 - 78 U/L [facility] 08/14/2023 11:3 5 AM EDT 08/14/2023 11:38 AM EDT Generic External Data Provider LAB BLOOD ORDERAB LES Final Result Performing Organization Address [facility] de Phone Number [facility] [address] [place] [phone] * Magnesium (08/14/2023 11:35 AM EDT) Pathologist [facility] Magnesium 2.0 1.6 - 2.6 mg/dL [facility] 08/14/2023 11:3 5 AM EDT 08/14/2023 11:38 AM EDT Generic External Data Provider LAB BLOOD ORDERAB LES Final Result Performing Organization Address [facility] de Phone Number [facility] [address] [place] [phone] * (ABNORMAL) Basic Metabolic Panel (08/14/2023 11:35 AM EDT) Pathologist [facility] Sodium 141 135 - 145 mmol/L [facility] [...] 1.210.Chronic Kidney Disease: Estimated GFR < 60 mL/min/[id number] Kidney Disease: Estimated GFR < 15 mL/min/1.73m2 Glucose 165(H) 60 - 115 mg/dL [facility] Calcium 9.5 8.4 - 10.2 mg/dL [facility] 08/14/2023 11:3 5 AM EDT 08/14/2023 11:38 AM EDT us Generic External Data Provider LAB BLOOD ORDERAB LES Final Result [facility] [address] [place] [phone] * Hepatic Function Panel (08/14/2023 11:35 [...] LES Final Result [facility] [address] [place] [phone] * (ABNORMAL) Drug Monitoring, Panel 1, [...] ORDERAB LES Final Result Performing Organization Address [facility] Co de Phone Number [facility] [address] [place] [phone] * CT Head w/o Contrast (08/14/2023 10:35 AM EDT) Anatomical Region Laterality Modality Head, Neck Computed Tomogra phy 08/14/2023 10:3 5 AM EDT Narrative 08/14/2023 12:20 PM EDT [address] [address] [address] Scan Report Signed Patient: Serafin Steele MR#: [id number] : 1950 Acct:[id number] Age/Sex: 73 / M ADM Date: 08/14/23 Loc: HO.ED Attending Dr: Ordering Physician: Aurbee Jamison DO Date of Service: 08/14/23 Procedure(s): CT head/brain wo IV con Accession Number(s): [id number] cc: Aubree Jamison DO; Kayla Doyle EXAMINATION: [...] in OV> 08/14/23 1216 DD/ 1035 TD/TT: Maitre D: SAGE Procedure Note Donotuseinterpreter, Image - 08/14/[address] [place] [address] [address] Scan Report Signed Patient: Mel Steele#: [id number] : 1950cct:[id number] Age/Sex: 73 / MADM Date: 08/14/23 Loc: HO.ED Attending Dr: Ordering Physician: Aubree Jamison DO Date of Service: 08/14/23 Procedure(s): CT head/brain wo IV con Accession Number(s): [id number] cc: Aubree Jamison DO; Kayla Doyle EXAMINATION: [...] in OV> 08/14/23 1216 DD/ 1035 TD/TT: Maitre D: SAGE [facility] External Provider IMG CT PROCEDURES Final Result * XR Chest 1 View (08/14/2023 10:29 AM EDT) Anatomical Region Laterality Modality Chest Radiographic [place] ging 08/14/2023 10:2 9 AM EDT Narrative 08/14/2023 12:10 PM EDT [address] [address] XRay Report Signed Patient: Serafin Steele MR#: [id number] : 1950 Acct:[id number] Age/Sex: 73 / M ADM Date: 08/14/23 Loc: HO.ED Attending Dr: Ordering Physician: Aubree Jamison DO Date of Service: 08/14/23 Procedure(s): XR chest 1V Accession Number(s): [id number] cc: Aubree Jamison DO; Kayla Doyle EXAMINATION: [...] in OV> 08/14/23 1206 DD/ 1029 TD/TT: Maitre D: Procedure Note Donotuseinterpreter, Image - 08/14/[address] [address] XRay Report Signed Patient: Mel Steele#: [id number] : 1950cct:[id number] Age/Sex: 73 / MADM Date: 08/14/23 Loc: .ED Attending Dr: Ordering Physician: Aubree Jamison DO Date of Service: 08/14/23 Procedure(s): XR chest 1V Accession Number(s): [id number] cc: Aubree Jamison DO; Kayla Doyle EXAMINATION: [...] in OV> 08/14/23 1206 DD/ 1029 TD/TT: Maitre D: [facility] External Provider IMG XR PROCEDURES Final Result * B Type Natriuretic Peptide (BNP) (08/14/2023 10:17 AM EDT) Pathologist [facility] B Type Natriuretic Peptide 54 <100 [...] ORDERAB LES Final Result Performing Organization Address [facility] Co de Phone Number [facility] [address] [place] [phone] * High Sensitivity Troponin I (08/14/2023 9:51 AM EDT) Pathologist [facility] TROPONIN I HIGH SENSITIVITY 31.7 <3.5 - 35.0 ng/L [facility] Comment:The Wilks high sens itivity Troponin-I results should beused in conjunction with other diagnostic information suchas ECG, clinical observations and information, and patientsymptoms to aid in the diagnosis of [place]. 08/14/2023 9:51 AM EDT 08/14/2023 9:54 AM EDT Generic External Data Provider LAB BLOOD ORDERAB LES Final Result [facility] [address] [place] [phone] * Prothrombin Time-INR (08/14/2023 9:51 AM EDT) [facility] Prothrombin Time 11.6 11.1 - 13.3 SEC [...] LES Final Result [facility] [address] [place] [phone] * (ABNORMAL) CBC auto differential (08/14/2023 9:51 AM EDT) [facility] White Blood Count 11.5(H) 4.8 - 10.8 [...] LES Final Result [facility] [address] [place] [phone] * Calcium (08/07/2023 6:36 AM EDT) Calcium 9.5 8.4 - 10.2 mg/dL [facility] 08/07/2023 6:36 AM EDT 08/07/2023 6:36 AM EDT us Generic External Data Provider LAB BLOOD ORDERAB LES Final Result Performing Organization Address [facility] Co de Phone Number [facility] [address] [place] [phone] * Creatinine, Serum (08/07/2023 6:36 AM EDT) Creatinine, Serum 1.04 0.5 - 1.4 mg/dL [facility] Estimated Glomerular Filt Rate >60 [facility] Comment:NOTE: For -Am erican individuals, multiply the result by 1.210.Chronic Kidney Disease: Estimated GFR < 60 mL/min/1.76a9Rziuob Kidney Disease: Estimated GFR < 15 mL/min/1.73m2 08/07/2023 6:36 AM EDT 08/07/2023 6:36 AM EDT us Generic External Data Provider LAB BLOOD ORDERAB LES Final Result Performing Organization Address [facility] de Phone Number [facility] [address] [place] [phone] * BUN (Blood Urea Nitrogen) (08/07/2023 6:36 AM EDT) Urea Nitrogen (BUN) 12 9 - 16 mg/dL [facility] 08/07/2023 6:36 AM EDT 08/07/2023 6:36 AM EDT Generic External Data Provider LAB BLOOD ORDERAB LES Final Result Performing Organization Address [facility] Co de Phone Number [facility] [address] [place] [phone] * Electrolyte Panel (08/07/2023 6:36 AM [...] ORDERAB LES Final Result Performing Organization Address [facility] Co de Phone Number [facility] [address] [place] [phone] * (ABNORMAL) Protein Creatinine Ratio, Urine [...] ORDERAB LES Final Result Performing Organization Address [facility]/ZIP Co de Phone Number [facility] [address] [place] [phone] * (ABNORMAL) Urinalysis with Reflex to Microscopic (08/07/2023 6:35 AM EDT) Color Urine Yellow [facility] Appearance Urine Clear [facility] PH 6.0 5.0 - 9.0 [facility] Glucose Urine UA Negative Negative mg/dL [facility] Urine Blood Negative Negative [facility] Specific [place] - Urine >=1.030(H) 1.005 - 1.025 [facility] Urine Protein Negative Neg-Trace mg/dL [facility] Urine Ketones Negative Negative mg/dL [facility] Nitrite Urine Negative Negative [facility] Leukocyte Esterase Urine Negative Negative [facility] 08/07/2023 6:35 AM EDT 08/07/2023 7:58 AM EDT us Generic External Data Provider LAB URINE ORDERAB LES Final Result [facility] [address] [place] [phone] * Colonoscopy (03/27/2018 3:26 PM EST) us Historical Provider HEALTH MAINTENANCE Final Result documented in this encounter Visit Diagnoses Not on filedocumented in this encounter Care Teams Heating Systems Installer Relationship Specialty Start Date End Date Kayla Doyle MD [address] [place] [address] PCP - General Family Medicine 11/08/20 documented as of this encounter
--- OUTSIDE RECORDS SUMMARY | 2025-01-23 12:26 | XMS_ITS | Encounter Summary ---
Author Organization [employer] Address [address] [place] [address] 7t [place] [address] Care Team Providers Care Lay Out Inspector Name Role Phone Kayla Doyle MD Primary Care Provider [phone] Encounter Details Date Type Department Care Team (Late Contact Info) Description 11/14/2022 Abstract [facility] [address] [place], [place] [phone] Kayla Doyle MD [address] [place] [phone] Social History Tobacco Use Types Packs/Day Years [...] 02/13/2025 9:45 AM EST Office Visit [facility] [address] [place] [phone] Kayla Doyle MD [address] [place] [address] [phone] documented as of this encounter Visit Diagnoses Not on filedocumented in this encounter Care Teams Lay Out Inspector Relationship Specialty Start Date End Date Kayla Doyle MD [address] [place] [address] PCP - General Family Medicine 11/08/20 documented as of this encounter
== END 2025-01-23 10:38 | disposition home or self-care (01) ==
LOC: HO.HKA 10:09
PROVIDERS: PCP General Practice; Visit Provider Internal Medicine Nephrology
DX: I10 Essential (primary) hypertension (principal); N18.31 Chronic kidney disease, stage 3a
CPT/HCPCS: 99214

== ENCOUNTER → 2025-01-23 10:09 | Outpatient (BNVA) | payer OTHER, SELFPAY | PROVIDERS: PCP General Practice; Visit Provider Internal Medicine Nephrology | DX: I10 Essential (primary) hypertension (principal); N18.31 Chronic kidney disease, stage 3a | CPT/HCPCS: 99212 ==

== ENCOUNTER 2025-02-13 10:23 | Outpatient (REF) | payer OTHER, SELFPAY ==
[2025-02-13 11:25] LABS: MANUAL DIFF FLAG NO
[2025-02-13 11:37] LABS: Hematocrit 44.9 % (42.0-52.0); Hemoglobin 14.6 g/dl (14.0-18.0); Imm Gran Abs Auto 0.02 X10*3/uL (0.00-0.03); Imm Gran Pct Auto 0.3 % (0.0-0.4); Lymphocytes Absolute Auto 1.8 X10*3/uL (1.2-4.9); Mean Corpuscular HGB Conc 32.5 g/dl (31.0-36.0); Mean Corpuscular Hemoglobin 25.9 pg (27.0-33.0); Mean Corpuscular Volume 79.8 fL (80.0-98.0); NRBC Pct Auto 0.0 /100WBC (0.0-0.2); Platelet Count 175 X10*3/uL (160-400); Red Blood Count 5.63 X10*6/uL (4.60-5.80); White Blood Count 7.2 X10*3/uL (4.8-10.8)
[2025-02-13 11:38] LABS: NRBC Abs Auto 0.000 X10*3/uL (0.0-0.012)
[2025-02-13 12:14] LABS: INTERNATIONAL NORM RATIO 0.9 (0.9-1.1); Partial Thromboplastin Time 32.7 SEC (26.7-34.1); Prothrombin Time 11.5 SEC (11.2-13.5)
[2025-02-13 14:21] LABS: Cholesterol 112 mg/dL (<200); HDL Cholesterol 39 mg/dL (>40); Triglycerides 73 mg/dL (<150)
== END 2025-02-13 10:24 | disposition home or self-care (01) ==
LOC: HO.HHCL 10:23
PROVIDERS: PCP General Practice; Visit Provider General Practice
DX: E11.22 Type 2 diabetes mellitus with diabetic chronic kidney disease (principal); N18.31 Chronic kidney disease, stage 3a; R53.83 Other fatigue; D68.9 Coagulation defect, unspecified
CPT/HCPCS: 36415; 80061; 84443; 85025; 85610; 85730